=== PATIENT | male | born 1940 | race Caucasian/White ===

== ENCOUNTER 2025-04-23 15:27 | Inpatient (IN) | payer MEDICARE, SELFPAY ==
[2025-04-23] VITALS (7 sets, daily range): BP systolic 77–133; BP diastolic 46–77; PULSE 71–93; RESP 14–30; TEMP 36.4–37.1; O2SAT 96–99; BMI 24.1
--- NOTE | ~2025-04-23 | FL_ITS ---
EXAMINATION: FL GUIDANCE ONLY HISTORY: ioc COMPARISON: Correlation is made with a CT of the abdomen with contrast dated 04/23/2025. TECHNIQUE: Fluoroscopy time: 0.1 minutes. Cumulative Dose: 3.77 mGy. DAP: 1.02 mGym2 Images: 4. FINDINGS: Fluoroscopic spot films from an intraoperative cholangiogram demonstrate contrast within a normal caliber common bile duct and in the duodenum. No intraluminal filling defects are identified. FL/FL guidance in OR IMPRESSION: Fluoroscopy during procedure. Please see procedure report for additional information. Electronically signed by: Prosper Slater MD 04/25/2025 04:00 PM EDT
--- NOTE | ~2025-04-23 | XR_ITS ---
CLINICAL HISTORY: vomiting 1 view chest x-ray Comparison: None Findings: Mild diffuse interstitial prominence in both lungs. No focal consolidation, pleural effusion or pneumothorax. Left cardiac AICD device and leads are in expected location. No acute fracture. IMPRESSION: 1. Mild interstitial prominence in both lungs may represent pulmonary vascular congestion/mild pulmonary edema. This document has been electronically signed by: Karly Avila MD on 04/23/2025 18:21:34
--- NOTE | ~2025-04-23 | CT_ITS ---
CLINICAL HISTORY: RUQ tenderness, elevated LFTS, ?Sabine, also diarrh CT abdomen and pelvis with contrast Comparison: None Findings: No consolidation or effusion. Markedly distended gallbladder measuring 11.3 x 6.2 cm. No radiopaque gallstone is seen. No intra or extrahepatic ductal dilation with CBD measuring 9 mm in diameter. Right kidney upper pole 1.2 cm partially exophytic cyst. Solid organs are otherwise within normal limits. No renal stones. No bowel obstruction, pneumoperitoneum, or pneumatosis. Pelvic contents unremarkable. Normal appendix. The bones are intact. Moderate to severe spondylosis of the lumbar spine with mild levoscoliosis. IMPRESSION: Markedly distended gallbladder without radiopaque gallstones. No intra or extrahepatic ductal dilation, gallbladder wall thickening or pericholecystic fluid. Correlate with NPO status. Right upper quadrant ultrasound can be obtained for further evaluation. Right kidney upper pole 1.2 cm exophytic cyst. This document has been electronically signed by: Karly Avila MD on 04/23/2025 19:57:02
--- NOTE | ~2025-04-23 | US_ITS ---
CLINICAL HISTORY: RUQ tenderness, abn LFTs US abdomen limited Comparison: CT/SR - CT ABDOMEN PELVIS W IV CON - 04/23/25 19:08 EDT Findings: The liver is normal in size and echotexture. There is no intrahepatic bile duct dilatation. The common duct is 7 mm in diameter. Markedly distended gallbladder with large sludge within the dependent portion. Moderate gallbladder wall thickening measuring 7 mm. there is no sonographic Frey sign. IMPRESSION: 1. Markedly distended gallbladder with large amount of sludge within the dependent portion. Moderate gallbladder wall thickening. No intra or extrahepatic dilation. Negative sonographic Frey's sign. The findings are equivocal for acute cholecystitis. If there is high clinical suspicion, nuclear medicine HIDA scan can be obtained for further evaluation. This document has been electronically signed by: Karly Avila MD on 04/23/2025 20:55:42
--- NOTE | ~2025-04-23 | NM_ITS ---
EXAMINATION: NM HEPATOBILIARY WITHOUT PHARM HISTORY: ?acute cholecystitis. TECHNIQUE: An hepatobiliary scan was performed following the intravenous administration of 5.0 mCi technetium 99m-MDP. Images were obtained to 4.5 hours. COMPARISON: Correlation is made with an abdominal ultrasound dated 04/23/2025. FINDINGS: There is normal uptake of the radiopharmaceutical by the liver. However, no excretion is seen over the course of 120 minutes. 4 hour delayed images demonstrate activity in the common bile duct and small bowel. No activity is seen in the gallbladder. Findings are consistent with cystic duct obstruction and acute cholecystitis. NM/NM hepatobiliary wo pharm IMPRESSION: Findings consistent with acute cholecystitis as described. Electronically signed by: Prosper Slater MD 04/24/2025 02:39 PM EDT
--- NOTE | 2025-04-23 15:33 | ED_ITS ---
HPI - General Adult General Chief complaint: Abdominal Pain Stated complaint: N/D, abd pain Time Seen by Provider: 04/23/25 16:44 History of Present Illness ED Provider: Darrin MIDDLETON narrative: The patient is a generally healthy 84-year-old male. Three weeks ago he went on a cruise to the [facility] for 16 days. During the cruise he had diarrhea. He was then home for a week. His diarrhea resolved. A week ago he went to [place] and he again had diarrhea. He returned from [place] yesterday. Yesterday his diarrhea abated. He also had some vomiting while in [place] over the weekend on Monday and Monday (4-5 days ago). Today he had some abdominal pain and vomited and called his regular doctor's office and was advised to come to the emergency room. No fever. At the time that I examined him he denied having any significant abdominal pain. Related Data Home Medications ?Medication ?Instructions ?Recorded ?Confirmed clopidogrel 75 mg tablet 75 mg PO DAILY 04/23/25 04/23/25 dapagliflozin propanediol 10 mg 10 mg PO DAILY 04/23/25 04/23/25 tablet (Farxiga) glipizide 10 mg tablet 10 mg PO BID 04/23/25 04/23/25 loperamide 2 mg capsule 2 mg PO Q4H PRN Loose Stool 04/23/25 04/23/25 metoprolol tartrate 50 mg tablet 50 mg PO DAILY 04/23/25 04/23/25 rosuvastatin 40 mg tablet 40 mg PO BEDTIME 04/23/25 04/23/25 semaglutide 14 mg tablet (Rybelsus) 14 mg PO DAILY 04/23/25 04/23/25 spironolactone 25 mg tablet 25 mg PO DAILY 04/23/25 04/23/25 Allergies Allergy/AdvReac Type Severity Reaction Status Date / Time No Known Allergies Allergy Verified 04/23/25 15:35 Review of Systems 2 Review of Systems: Yes all other systems are reviewed and are negative [facility] Social History Social History Smoked in Last 30 Days: No Use of substances other than those prescribed or required for medical reasons: No Advance Directives: No Advance Directives Information Provided: No Physical Exam ED Vital Signs: Vital Signs - 24 hr 04/23/25 15:33 04/23/25 16:05 04/23/25 18:10 Temperature 98.2 F 97.6 F 98.1 F Pulse Rate 93 87 73 Respiratory Rate 18 30 H 20 Blood Pressure 77/46 L 99/46 L 114/59 L Pulse Oximetry 98 96 99 Oxygen Delivery Method Room Air Room Air Room Air 04/23/25 19:40 04/23/25 19:41 04/23/25 20:47 Temperature 97.8 F Pulse Rate 74 73 Respiratory Rate 14 21 H Blood Pressure 125/57 L 129/67 122/77 Pulse Oximetry 98 98 Oxygen Delivery Method Room Air Room Air BMI result Body Mass Index 24.1 Const Other: The patient is awake and alert with a normal mental status. He is pleasant and cooperative. He is not appear in acute distress although he looks somewhat weak. Orientation/consciousness: patient oriented x3 HENMT Other: Face is symmetrical, mucous membranes moist Eyes General: appearance normal, both eyes and all related structures Neck Neck: Yes full ROM Resp Effort & Inspection: normal respiratory effort Auscultation: clear to auscultation bilaterally Cardio Rate: regular rate Rhythm: regular rhythm Heart sounds: S1 normal heart sound present and S2 normal heart sound present GI Other: The patient seems to have some right upper quadrant tenderness. No rebound or guarding. Abdomen is otherwise soft and nontender. Skin General skin exam: no rashes or lesions noted Neuro General: patient oriented x3, tone normal, moves all extremities, no focal motor deficits and CN's II-XI intact bilaterally Extrem Other: No peripheral edema Course Course Course Narrative: 04/23/25 1533 OWEN Howe This is a Rapid Medical Examination (RME) performed by Vandana Rangel PA-C in triage. Full HPI, ROS, assessment and treatment plan per primary provider in the Main ED. Hx: 84 yo M here for eval of N/V/D that began 3 wks ago while on a cruise. feels like a wet rag . reports abd pain this morning that has resolved. 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 called PCP, advised to come to ED for fluids. no recent abx. reports friend whom he went on a cruise with was also ill with diarrhea. Vitals: hypotensive, well appaering. Plan: labs, GI panel Medications Administered Generic Name Dose Route Start Last Admin Trade Name Freq PRN Reason Stop Dose Admin Dextrose/Sodium Chloride 1,000 mls @ 100 mls/hr 04/23/25 21:45 04/23/25 22:39 D5ns IVCONT 100 mls/hr .Q10H KIRSTEN Administration Piperacillin Sod/Tazobactam 50 mls @ 100 mls/hr 04/23/25 22:00 04/23/25 22:53 Sod 3.375 gm/ Sodium Chloride IV Infused Q6H KIRSTEN Infusion Sodium Chloride 3 ml 04/24/25 00:00 04/24/25 00:37 0.9 % Sodium Chloride Flush 3 Ml Syringe IVFLUSH Not Given QSHIFT KIRSTEN Discontinued Medications Generic Name Dose Route Start Last Admin Trade Name Freq PRN Reason Stop Dose Admin Ceftriaxone Sodium 2 gm 04/23/25 16:56 04/23/25 17:10 Ceftriaxone Sodium 2 Gm Vial IVPUSH 04/23/25 16:57 2 gm ONCE ONE Administration Sodium Chloride 1,000 mls @ 999 mls/hr 04/23/25 16:00 04/23/25 17:44 Ns IV 04/23/25 17:00 Infused .Q1H1M KIRSTEN Infusion Metronidazole 500 mg in 100 mls @ 100 mls/hr 04/23/25 16:55 04/23/25 19:03 Flagyl IV 04/23/25 17:54 Infused ONCE ONE Infusion Sodium Chloride 1,000 mls @ 999 mls/hr 04/23/25 17:00 04/23/25 19:03 Ns IV 04/23/25 18:00 Infused .Q1H1M KIRSTEN Infusion Magnesium Sulfate 2 gm in 50 mls @ 150 mls/hr 04/23/25 16:57 04/23/25 17:44 Magnesium Sulfate/H2o IV 04/23/25 17:16 Infused ONCE ONE Infusion Sodium Chloride 500 mls @ 500 mls/hr 04/23/25 17:00 04/23/25 19:03 Ns IV 04/23/25 17:59 Infused .Q1H KIRSTEN Infusion Potassium Chloride 10 meq in 100 mls @ 100 mls/hr 04/23/25 18:30 04/24/25 00:36 Potassium Chloride/H20 IV 04/23/25 22:29 Infused Q1H KIRSTEN Infusion Iohexol 100 ml 04/23/25 19:15 04/23/25 19:15 Iohexol 350 Mg/Ml 100 Ml Infus..Btl IV 04/23/25 19:16 85 ml ONCE ONE Administration Medical Decision Making Medical Decision Making [facility] Narrative: The patient is a very pleasant 84-year-old male who describes a history of having had an episode of significant diarrhea when he was on a cruise 3 weeks ago. He also had significant diarrhea during the last week when he went to [place]. He then had an episode of vomiting today that may have been associated with some mild degree of abdominal pain and he came to the emergency room. On exam he had some mild right upper quadrant tenderness. His initial blood pressure was low but he was not persistently hypotensive. The patient was given empiric IV fluids and empiric antibiotics to cover a possible intra-abdominal source. He was given ceftriaxone and metronidazole. An initial lactate was elevated at 2.2. His white count was 14 in his LFTs showed an elevated bilirubin and transaminases. A CT scan of the abdomen and pelvis was done that showed gallbladder distention. An ultrasound was advised. An ultrasound was done that showed a distended gallbladder with sludge with moderate gallbladder wall thickening. A negative sonographic Frey's sign was reported. This was therefore considered equivocal for acute cholecystitis. I re-examined the patient after the ultrasound and he seems to have right upper quadrant tenderness. A repeat lactate was normal. He looked and seemed to be feeling better. A focused sepsis exam was done at 19:00. The case was discussed with the surgery team and the patient will be admitted for further evaluation with a tentative diagnosis of possible acute cholecystitis. Lab Data 04/23/25 16:04 04/23/25 16:04 Labs: Lab Results 04/23/25 04/23/25 04/23/25 Range/Units 16:04 18:27 19:19 WBC 14.0 H (4.8-10.8) X10*3/uL RBC 5.13 (4.60-5.80) X10*6/uL Hgb 15.1 (14.0-18.0) g/dl Hct 42.2 (42.0-52.0) % MCV 82.3 (80.0-98.0) fL MCH 29.4 (27.0-33.0) pg MCHC 35.8 (31.0-36.0) g/dl RDW 13.3 (11.0-16.0) % Plt Count 116 L (160-400) X10*3/uL MPV 10.0 (9.4-12.4) fL Immature Gran % (Auto) 0.4 (0.0-0.4) % Neut % (Auto) 88.7 H (45-73) % Lymph % (Auto) 3.0 L (20-40) % [place] % (Auto) 7.7 (2-11) % Eos % (Auto) 0.1 (0-4) % Baso % (Auto) 0.1 (0-2) % Lymph # (Auto) 0.4 L (1.2-4.9) X10*3/uL [place] # (Auto) 1.1 (0.1-1.2) X10*3/uL Eos # (Auto) 0.0 (0.0-0.4) X10*3/uL Baso # (Auto) 0.0 (0.0-0.2) X10*3/uL Abs Immat Gran (auto) 0.05 H (0.00-0.03) X10*3/uL Absolute Neuts (auto) 12.4 H (2.0-8.3) x10*3/uL Absolute Nucleated RBC 0.000 (0.0-0.012) X10*3/uL Nucleated RBC % (auto) 0.0 (0.0-0.2) /100WBC Sodium 138 (135-145) mmol/L Potassium 2.6 L* (3.3-5.1) mmol/L Chloride 103 (96-108) mmol/L Carbon Dioxide 25 (22-29) mmol/L Anion Gap 13 (12-20) BUN 16 (9-16) mg/dL Creatinine 1.18 (0.5-1.4) mg/dL Estim Creat Clear Calc 48.2 Estimated GFR 59 Random Glucose 184 H (60-115) mg/dL Lactic Acid 2.2 H* (0.5-2.0) mmol/L Lactic Acid F/U @ 2Hr 1.5 (0.5-2.0) mmol/L Calcium 9.0 (8.4-10.2) mg/dL Magnesium 1.4 L* (1.6-2.6) mg/dL Total Bilirubin 3.3 H (0.0-1.0) mg/dL Direct Bilirubin 2.3 H (0.0-0.5) mg/dL AST 135 H (5-37) U/L ALT 70 H (0-40) U/L Alkaline Phosphatase 125 H (39-117) U/L C-Reactive Protein 0.61 H (< or = 0.50) mg/dL Total Protein 6.4 L (6.5-8.0) g/dL Albumin 4.0 (3.5-5.0) g/dL Lipase 27 (8-78) U/L Urine Color Dark Yellow Urine Appearance Clear Urine pH 5.5 (5.0-9.0) Ur Specific [place] 1.020 (1.005-1.025) Urine Protein 30 (1+) H (Neg-Trace) mg/dL Urine Glucose (UA) >=1000 H (Negative) mg/dL Urine Ketones Trace (Negative) mg/dL Urine Blood Trace H (Negative) Urine Nitrite Negative (Negative) Ur Leukocyte Esterase Small (1+) H (Negative) Urine RBC 0-2 (0-2) /HPF Urine WBC 21-50 H (0-5) /HPF Ur Squamous Epith Cells 6-10 (0-2) /HPF Urine Bacteria 1+ (None Seen) Hyaline Casts 3-5 (0-2) /LPF Critical Care Time Critical Care Time Critical Care Time: Yes Total Critical Care Time: 35 Attestation: The patient was critically ill with a high probability of imminent or life- threatening deterioration. ?I spent greater than 30 minutes of discontinuous time evaluating the patient, delivering critical care at the bedside, discussing evaluating data with consultants. ?Critical care time does not include time spent performing separately billable procedures or teaching. ?Time spent performing critical care with 35 minutes. Discharge Plan Discharge Clinical Impression: Vomiting, Hypokalemia, Abnormal LFTs Patient Disposition: Admitted As Inpatient
--- OUTSIDE RECORDS SUMMARY | 2025-04-23 16:01 | XMS_ITS | Clinical Summary ---
Author Organization [facility] [address] [place] [address] Address [address] [place] [address] Phone Care Team Providers Care Project Engineering Director Name Role Phone Romie Vieyra MD Primary Care Provider [phone] Allergies Active Allergy Reactions Criticality Noted Date Comments Lisinopril Cough 10/24/2022 Other reaction(s): cough Medications aspirin 81 mg EC tablet 1 TABLET DAILY Activ e cholecalcifero l (VITAMIN D-3) 25 mcg (1,000 unit) tablet Take 1,000 Units by mouth daily. 05/29/20 23 Active UNABLE TO FIND cpap Activ e FREESTYLE LANCETS MISC Use with glucometer to check glucose once daily 11/18/20 21 Active glipiZIDE (GLUCOTROL) 10 mg tablet Take 1 Tablet by mouth 2 times daily (before meals). 07/02/20 24 Active blood sugar diagnostic (FreeStyle Lite Strips) test strip 1 Strip by In Vitro route daily. 03/29/20 23 Active blood-glucose meter kit Use to check glcuose levels 11/18/20 21 Active lisinopriL (PRINIVIL,ZEST RIL) 2.5 mg tablet Take 1 Tablet by mouth daily for 180 days. 10/26/20 23 Active semaglutide (Rybelsus) 14 mg tablet Take 1 tablet (14 mg total) by mouth 1 (one) time each day. 04/23/20 24 Active rosuvastatin (CRESTOR) 40 mg tablet Take 1 tablet (40 mg total) by mouth 1 (one) time each day. 90 tablet 1 11/12/20 24 Active metoprolol tartrate (LOPRESSOR) 50 mg tablet Take 1 tablet (50 mg total) by mouth 2 (two) times a day. 180 tablet 1 11/12/20 24 Active spironolactone (ALDACTONE) 25 mg tablet TAKE 1 TABLET BY MOUTH DAILY 90 tablet 1 02/05/20 25 Active clopidogreL (PLAVIX) 75 mg tablet TAKE 1 TABLET BY MOUTH DAILY 90 tablet 1 02/11/20 25 Active Farxiga 10 mg tablet TAKE 1 TABLET BY MOUTH DAILY 90 tablet 1 04/08/20 25 Active Farxiga 10 mg tablet TAKE 1 TABLET BY MOUTH DAILY 90 tablet 1 10/31/20 24 025 Discontinued Active Problems Problem Noted Date Diagnosed Date Spondylosis of lumbar region without myelopathy or radiculopathy 07/02/2024 Chronic systolic congestive heart failure ([facility] V24, [facility] V28) 05/08/2023 Coronary artery disease invo lving coronary bypass graft of [place] heart without angina pectoris 12/29/2022 Type 2 diabetes mellitus wit h microalbuminuria, without long-term current use of insulin ([facility] V24, [facility] V28) 09/01/2022 Central sleep apnea 10/28/2021 Obstructive sleep apnea of adult 06/15/2016 Overview (09/28/2024): [facility] Home sleep study; 2021; weight 180 pounds; BMI 27. AHI 27; AI 26; AHI 1. 77 obstructive apneas; 75 central apneas; 14 mixed apneas; 8 hypopneas. Average oxygen saturation 91%; oxygen neelima 81% Obstructive/Central Sleep Apnea with [place] Sue Respiration - moderate AHI 27 without nocturnal hypoxemia. Ordered by Dr Limon. Type II or unspecified type diabetes mellitus with ophthalmic manifestations, uncontrolled(250.52) ([facility] V24, [facility] V28) 08/13/2014 Overview (09/28/2024): Nuclear Sclerosis not e eye exam 12/06/2011 Lumbar spinal stenosis 09/16/2011 Type II diabetes mellitus wi th peripheral circulatory disorder ([facility] V24, [facility] V28) 12/30/2010 AICD (automatic cardioverter/defibrillator) pres ent 12/28/2010 Overview (09/28/2024): Implanted at [facility], 10/13/2010, ischemic cardiomyopathy Cardiomyopathy ([facility] V24, [facility] V28) 2009 Nonspecific abnormal finding in stool contents 0 08/07/2006 Overview (09/28/2024): negative colonoscopy 08.07.06. No colon cancer screening necessary until 2016. DM (diabetes mellitus) type II controlled with renal manifestation ([facility] V24, [facility] V28) 03/23/2006 Mixed hyperlipidemia 12/23/2005 Prostate cancer ([facility] V24, [facility] V28) 12/23 Essential hypertension, benign 12/21/2005 Old myocardial infarction 12/21/2005 Overview (09/28/2024): Stemi, 04/28/2010, medical treatment advised. CAD, five the vessel CABG, 08/22 [414.00] Pilonidal cyst 12/21/2005 Overview (09/28/2024): IMO update Encounters Date Type Department Care Team Description 04/23/2025 Telephone Adult Medicine [address] [phone] Romie Vieyra MD Abdominal Pain; Vomiting; Diarrhea 02/10/2025 10:20 AM EDT Office Visit Endocrinology [address] [phone] Padmaja Cr PA Type 2 diabetes mellitus with microalbuminuria, without long-term current use of insulin ([facility] V24, [facility] V28) (Primary Dx); Essential hypertension, benign; Mixed hyperlipidemia from Last 3 Months Immunizations Name Administration Dates Next Due Moderna SARS-CoV-2 COVID-19, mRNA, LNP-S, preservative free 10/14/2022 Td, Unspecified 01/08/2002 Surgical History Surgery Date Site/Laterality Comments CORONARY ARTERY BYPASS GRAFT 2002 PROCEDURE: HISTORICAL CABG OTHER SURGICAL HISTORY 2009 PROCEDURE: ---- OTHER ----; COMMENT: AICD COLONOSCOPY 08/07/2006 PROCEDURE: HISTORICAL COLONOSCOPY; COMMENT: Normal LUMBAR LAMINECTOMY 01/07/2020 Bilateral PROCEDURE: HISTORICAL LUMB LAMINECTOMY; COMMENT: l3/l4 decompressive laminectomies w/ foraminotomies Medical History Medical History Date Comments Unspecified sleep apnea 12/21/2005 DX:Unspe cified sleep apnea Coronary atherosclerosis of unspecified type of vessel, [place] or graft 12/21/2005 DX:Coronary atherosclerosis of unspecified type of vessel, [place] or graft Essential hypertension, benign 12/21/2005 D X:Essential hypertension, benign Pilonidal cyst without menti on of abscess 12/21/2005 DX:Pilonidal cyst without me ntion of abscess Type II or unspecified type diabetes mellitus without mention of complication, not stated as uncontrolled 03/23/2006 DX:Type II or unspecified ty pe diabetes mellitus without mention of complication, not stated as uncontrolled Nonspecific abnormal finding in stool contents 08/07/2006 DX:Nonspecific abnormal find ing in stool contents; COMMENT: negative colonoscopy 08.07.06. No colon cancer screening necessary until 2016. Diabetes mellitus type II, uncontrolled 03/23/2006 DX:Diabetes mellitus type II , uncontrolled Family History Medical History Relation Name Comments Heart attack Father in car acc ident Stroke Mother Blindness Neg Hx Cataracts Neg Hx Glaucoma Neg Hx Macular degeneration Neg Hx Strabismus Neg Hx Relation Name Status Comments Father Mother Social History Tobacco Use Types Packs/Day Years Used Date Smoking Tobacco: Former Cigarettes Q uit: 11/20/1979 Smokeless Tobacco: Never Tobacco Cessation:Counseling Given: Not Answered Alcohol Use Standard Drinks/Week Comments Not Asked 0 (1 standard drink = 0.6 oz pur e alcohol) Sex and Gender Information Value Date Recorded Sex Assigned at Not on file Legal Sex Male 6:08 PM EST Gender Identity Not on file Sexual Orientation Not on file Obstetrics History Last Filed Vital Signs Vital Sign Reading Time Taken Comments Blood Pressure 137/68 02/10/2025 10:20 AM EDT Pulse 64 02/10/2025 10:20 AM EDT Temperature 36.2 ??C (97.2 ??F) 02/10/2025 10:20 AM E DT Respiratory Rate 16 11/12/2024 12:40 PM EST Oxygen Saturation 99% 02/10/2025 10:20 AM EDT Inhaled Oxygen Concentration - - Weight 76.7 kg (169 lb 3.2 oz) 02/10/2025 10:20 AM EDT Height 175.3 cm (5' 9 ) 02/10/2025 10:20 AM EDT Body Mass Index 24.99 02/10/2025 10:20 AM EDT Plan of Treatment Health Maintenance Due Date Last Done Comments Diabetes: Annual Foot Exam 1952 Diabetes: Annual Retina Eye Exam 1950 Zoster Vaccines (1 of 2) 1961 DTaP,Tdap,and Td Vaccines (2 - Td or Tdap) 01/08/2012 01/08/2002 RSV Immunization Adult Patients (1 - 1-dose 75+ series) 2017 Pneumococcal Vaccine: 50+ Years (2 of 2 - PPSV23) 10/27/2021 09/01/2021 Colorectal Cancer Screening: Stool Based Tests (FOBT/FIT) 10/29/2022 Social Influencers of Health Screening 10/29/2022 COVID-19 Vaccine ( season) 2024 10/14/2022, 08/16/2021, 01/21/2021, Additional history exists Depression Screening 02/25/2025 02/26/2024 Falls Risk Assessment 02/25/2025 02/26/2024 Medicare Annual Wellness Visit 02/25/2025 02/26/2024 Diabetes: Blood Sugar Control Test (HGBA1C) 06/16/2025 12/17/2024, 11/12/2024, 06/13/2024, Additional history exists Influenza Vaccine (Season Ended) 2025 09/05/2022, 09/01/2021 Diabetes: Annual Urine Albumin-Creatinine Ratio (uACR) 11/12/2025 11/12/2024, 03/21/2024 Diabetes: Annual GFR (Glomerular Filtration Rate) 12/17/2025 12/17/2024, 11/12/2024, 09/04/2024, Additional history exists Hypertension/CHF/CAD Annual BMP Blood Test 12/17/2025 12/17/2024, 11/12/2024, 09/04/2024, Additional history exists Cholesterol Screening (Lipid Panel) 09/04/2029 09/04/2024, 12/19/2023 HIB Vaccines Aged Out No longer eligi ble based on patient's age to complete this topic HPV Vaccines Aged Out No longer eligi ble based on patient's age to complete this topic Hepatitis A Vaccines Aged Out No long er eligible based on patient's age to complete this topic Hepatitis B Vaccines Aged Out No long er eligible based on patient's age to complete this topic IPV Vaccines Aged Out No longer eligi ble based on patient's age to complete this topic MMR Vaccines Aged Out No longer eligi ble based on patient's age to complete this topic Meningococcal ACWY Vaccine Aged Out N o longer eligible based on patient's age to complete this topic Meningococcal B Vaccine Aged Out No l onger eligible based on patient's age to complete this topic RSV Immunization Patients Under 20 months Aged Out No longer eligible based on patient's age to complete this topic Varicella Vaccines Aged Out No longer eligible based on patient's age to complete this topic Procedures Procedure Name Priority Date/Time Associated Diagnosis Comments BASIC METABOLIC PANEL Routine 12/17/2024 7:50 AM EST Type 2 diabetes mellitus with microalbuminuria, without long-term current use of insulin ([facility] V24, [facility] V28) Essential hypertension, benign Coronary artery disease involving coronary bypass graft of [place] heart without angina pectoris AICD (automatic cardioverter/defibril lator) present Chronic systolic congestive heart failure ([facility] V24, [facility] V28) Mixed hyperlipidemia Prostate cancer ([facility] V24, [facility] V28) ROYAL on CPAP HEMOGLOBIN A1C Routine 12/17/2024 7:50 AM EST Type 2 diabetes mellitus with microalbuminuria, without long-term current use of insulin ([facility] V24, [facility] V28) Essential hypertension, benign Coronary artery disease involving coronary bypass graft of [place] heart without angina pectoris AICD (automatic cardioverter/defibril lator) present Chronic systolic congestive heart failure ([facility] V24, [facility] V28[facility] Mixed hyperlipidemia Prostate cancer ([facility] V24, [facility] V28) ROYAL on CPAP MICROALBUMIN CREATININE URINE RATIO Routine 11/12/2024 8:34 AM EST Obstructive sleep apnea of adult AICD (automatic cardioverter/defibril lator) present Cardiomyopathy ([facility] V24, [facility] V28) Coronary artery disease involving coronary bypass graft of [place] heart without angina pectoris Chronic systolic congestive heart failure ([facility] V24, [facility] V28) Essential hypertension, benign Type II diabetes mellitus with peripheral circulatory disorder ([facility] V24, [facility] V28) Prostate cancer ([facility] V24, [facility] V28) Old myocardial infarction Pilonidal cyst DM (diabetes mellitus) type II controlled with renal manifestation ([facility] V24, [facility] V28) Mixed hyperlipidemia Central sleep apnea DEPRESSION SCREENING Routine 02/26/2024 FALLS RISK ASSESSMENT Routine 02/26/2024 LIPID PANEL Routine 12/19/2023 from Last 3 Months or Most Recently Relevant to Health Maintenance Results * (ABNORMAL) Hemoglobin A1c (12/17/2024 7:50 AM EST) [facility] Hemoglobin A1C 8.3(H) <6.5 % LAB CHEMISTRY METHOD 12/17/2024 1:[address] [facility] Mean Bld Glu Estim. 192 mg/dL LAB CHEMISTRY METHOD 12/17/2024 1:[address] [facility] Blood Venous blood specimen / Unknown Venipuncture / Unknown 12/17/2024 7:50 AM EST 12/17/2024 7:50 AM EST us Romie Vieyra MD LAB BLOOD ORDERABLES Final Result [facility] [address] [place] [address], [place] [phone] * (ABNORMAL) Basic metabolic panel (12/17/2024 7:50 AM EST) [facility] Sodium 134 133 - 145 mmol/L LAB CHEMISTRY METHOD 12/17/2024 10:[address] [facility] Potassium 4.3 3.5 - 5.5 mmol/L LAB CHEMISTRY METHOD 12/17/2024 10:10 AM [facility] Chloride 101 96 - 110 mmol/L LAB CHEMISTRY METHOD 12/17/2024 10:10 AM [facility] CO2 28 21 - 32 mmol/L LAB CHEMISTRY METHOD 12/17/2024 10:10 AM [facility] Anion Gap 5 3 - 11 LAB CHEMISTRY METHOD 12/17/2024 10:10 AM [facility] Glucose 209(H) 70 - 100 mg/dL LAB CHEMISTRY METHOD 12/17/2024 10:10 AM [facility] BUN 15 5 - 25 mg/dL LAB CHEMISTRY METHOD 12/17/2024 10:10 AM [facility] Creatinine 0.91 0.70 - 1.30 mg/dL LAB CHEMISTRY METHOD 12/17/2024 10:10 AM [facility] eGFR 84 >=60 mL/min/1. 73m2 LAB CHEMISTRY METHOD 12/17/2024 10:10 AM [facility] Comment:Calculation based on the??Chronic Kidney Disease Epidemiology Collaboration (CKD-EPI) equation refit??without adjustment for race. BUN/Creatinine Ratio 16.5 LAB CHEMISTRY METHOD 12/17/2024 10:10 AM [facility] Calcium 9.5 8.5 - 10.5 mg/dL LAB CHEMISTRY METHOD 12/17/2024 10:10 AM [facility] Blood Venous blood specimen / Unknown Venipuncture / Unknown 12/17/2024 7:50 AM EST 12/17/2024 7:50 AM EST us Romie Vieyra MD LAB BLOOD ORDERABLES Final Result [facility] [address] [place] [address], * (ABNORMAL) Microalbumin creatinine urine ratio (11/12/2024 8:34 AM EST) [facility] Creatinine, Urine 91.0 mg/dL LAB CHEMISTRY METHOD 11/12/2024 10:[address] [facility] Microalb, Ur 31.4(H) 0.0 - 29.0 mg/L LAB CHEMISTRY METHOD 11/12/2024 10:[address] [facility] Microalb/Crea t Ratio 35(H) <30 mg/g creat LAB CHEMISTRY METHOD 11/12/2024 10:[address] [facility] Urine Urine specimen obtained by clean catch procedure / Unknown Non-blood Collection / Unknown 11/12/2024 8:34 AM EST 11/12/2024 8:34 AM EST Romie Vieyra MD LAB URINE ORDERABLES Final Result [facility] [address] [place] [address], * Falls Risk Assessment (02/26/2024) [facility] Falls Risk Assessment 12/19/2023 Historical Provider HEALTH MAINTENANCE Final Result * Depression Screening (02/26/2024) [facility] Depression Screening 12/19/2023 Historical Provider HEALTH MAINTENANCE Final Result * (ABNORMAL) Lipid panel (12/19/2023) [facility] LDL/HDL Ratio 4 0 - 4 Triglycerides 145 0 - 150 mg/dL Cholesterol 232(A) 0 - 200 mg/dL HDL 63 >=40 mg/dL LDL Cholesterol 140(A) 0 - 100 mg/dL Blood Venous blood specimen / Unknown Historical Provider LAB BLOOD ORDERABLES April l Result from Last 3 Months or Most Recently Relevant to Health Maintenance Insurance MEDICARE [facility] Care Teams Project Engineering Director Relationship Specialty Start Date End Date Romie Vieyra MD [address] [place] [id number] PCP - General 09/22/22
[2025-04-23 16:12] LABS: MANUAL DIFF FLAG NO
[2025-04-23 16:15] LABS: Basophils Percent Auto 0.1 % (0-2); Eosinophils Percent Auto 0.1 % (0-4); Hematocrit 42.2 % (42.0-52.0); Hemoglobin 15.1 g/dl (14.0-18.0); Imm Gran Abs Auto 0.05 X10*3/uL (0.00-0.03); Imm Gran Pct Auto 0.4 % (0.0-0.4); Lymphocytes Absolute Auto 0.4 X10*3/uL (1.2-4.9); Mean Corpuscular HGB Conc 35.8 g/dl (31.0-36.0); Mean Corpuscular Hemoglobin 29.4 pg (27.0-33.0); Mean Corpuscular Volume 82.3 fL (80.0-98.0); Monocytes Absolute Auto 1.1 X10*3/uL (0.1-1.2); Monocytes Percent Auto 7.7 % (2-11); Neutrophils Absolute Auto 12.4 x10*3/uL (2.0-8.3); Neutrophils Percent Auto 88.7 % (45-73); Platelet Count 116 X10*3/uL (160-400); Red Blood Count 5.13 X10*6/uL (4.60-5.80); Red Cell Distribution Width 13.3 % (11.0-16.0)
[2025-04-23] MEDS: 0.9 % Sodium Chloride 1,000 ML 999 ML IV ×2 (16:15→17:10)
[2025-04-23 16:46] LABS: Lactic Acid 2.2 mmol/L (0.5-2.0)
[2025-04-23 16:47] LABS: Alanine Aminotransferase 70 U/L (0-40); Alkaline Phosphatase 125 U/L (39-117); Anion Gap 13 (12-20); Aspartate Amino Transferase 135 U/L (5-37); Bilirubin Total 3.3 mg/dL (0.0-1.0); Blood Urea Nitrogen 16 mg/dL (9-16); Carbon Dioxide 25 mmol/L (22-29); Chloride 103 mmol/L (96-108); Creatinine Clr Calc Pharmacy 48.2; Estimated Glomerular Filt Rate 59; Glucose Random 184 mg/dL (60-115); Lipase 27 U/L (8-78); Magnesium 1.4 mg/dL (1.6-2.6); Potassium 2.6 mmol/L (3.3-5.1); Sodium 138 mmol/L (135-145); Total Protein 6.4 g/dL (6.5-8.0)
[2025-04-23] MEDS: cefTRIAXone sodium 2 GM VIAL IVPUSH (17:10)
[2025-04-23 17:12] LABS: Bilirubin Direct 2.3 mg/dL (0.0-0.5); C Reactive Protein 0.61 mg/dL (< or = 0.50)
[2025-04-23] MEDS: metroNIDAZOLE/NS 500 MG/100 ML PIGGYBACK 100 MG IV (17:18)
[2025-04-23] MEDS: Magnesium Sulfate/H2O 2 GM/50 ML PIGGYBACK IV (17:18)
[2025-04-23] MEDS: 0.9 % Sodium Chloride 500 ML IV (17:19)
--- NOTE | 2025-04-23 17:43 | ECG_ITS ---
Test Reason : HYPOKALEMIA Blood Pressure : */* mmHG Vent. Rate : 77 BPM Atrial Rate : * BPM P-R Int : * ms QRS Dur : 124 ms QT Int : 410 ms P-R-T Axes : * 244 96 degrees QTcB Int : 463 ms Normal sinus rhythm Minimal voltage criteria for LVH, may be normal variant ( [place] product ) Inferior infarct , age undetermined Anterior infarct , age undetermined Abnormal ECG No previous ECGs available Referred By: Osbaldo Clifford Electronically Signed By: MARIA A FITZGERALD
[2025-04-23 18:11] LABS: Reflex Lactate? Lactic Acid Added
[2025-04-23 18:51] LABS: ~Lactic Acid-LAB USE ONLY 1.5 mmol/L (0.5-2.0)
[2025-04-23] MEDS: Potassium Chloride/H20 10 MEQ/100 ML PIGGYBACK 100 MEQ IV ×4 (19:06→23:31)
[2025-04-23] MEDS: iohexoL 350 MG/ML 100 ML INFUS..BTL IV (19:15)
[2025-04-23 19:25] LABS: Appearance Urine Clear; Color Urine Dark Yellow; Glucose Urine UA >=1000 mg/dL (Negative); Leukocyte Esterase Urine Small (1+) (Negative); Nitrite Urine Negative (Negative); PH 5.5 (5.0-9.0); UMIC TRIGGER UACC YES; Urine Blood Trace (Negative); Urine Ketones Trace mg/dL (Negative); Urine Protein 30 (1+) mg/dL (Neg-Trace)
[2025-04-23 19:48] LABS: Bacteria Urine 1+ (None Seen); RBC Urine 0-2 /HPF (0-2); UACC Culture Trigger YES; WBC Urine 21-50 /HPF (0-5)
--- NOTE | 2025-04-23 21:50 | ECG_ITS ---
Test Reason : HYPOKALEMIA Blood Pressure : */* mmHG Vent. Rate : 72 BPM Atrial Rate : 72 BPM P-R Int : 248 ms QRS Dur : 96 ms QT Int : 400 ms P-R-T Axes : 48 170 102 degrees QTcB Int : 438 ms Sinus rhythm with 1st degree A-V block with occasional Premature ventricular complexes Right axis deviation Low voltage QRS Inferior infarct , age undetermined Cannot rule out Anterior infarct , age undetermined Abnormal ECG When compared with ECG of 23-Apr-2025 17:54, No significant changes seen Referred By: Osbaldo Clifford Electronically Signed By: MARIA A FITZGERALD
--- NOTE | 2025-04-23 22:14 | PHA.MEDREC ---
Addendum entered by Sondra Cordova RPh 04/23/25 22:20: reviewed by [facility] Original Note: Pharmacy Consult ? Medication Reconciliation Pharmacy has completed the medication reconciliation. Spoke with pt and he confirmed his medications with a list from his Dr office Pt chart. Pt confirmed he has been taking his Metoprolol Tartrate 50mg tab once daily and never took it twice daily due to never realizing it should be BID.
[2025-04-23] MEDS: Piperacillin Sodium/Tazobactam 3.375 GM in 0.9 % Sodium Chloride 50 ML IV (22:23)
[2025-04-23] MEDS: Dextrose 5 % and 0.9 % NaCl 1,000 ML 100 ML IVCONT (22:39)
[2025-04-24] VITALS (7 sets, daily range): BP systolic 112–142; BP diastolic 48–80; PULSE 59–74; RESP 16–20; TEMP 36–37; O2SAT 95–98
[2025-04-24] MEDS: Piperacillin Sodium/Tazobactam 3.375 GM in 0.9 % Sodium Chloride 50 ML IV ×4 (04:40→22:02)
[2025-04-24 05:34] LABS: MANUAL DIFF FLAG NO
--- NOTE | 2025-04-24 05:40 | PM.HPGS ---
History of Present Illness History of Present Illness Date of Service: 04/24/25 <Palak Uribe PA-C - Last Filed: 04/24/25 08:41> 04/24/25 <Blayne Faustin MD - Last Filed: 04/24/25 11:11> Chief complaint: Acute Cholecystitis <Palak Uribe PA-C - Last Filed: 04/24/25 08:41> Narrative: Leobardo Carreon is a 84 year old male with distant hx of 5 vessel CABG, [place] 1 year following, s/p prophylactic AICD (15 years ago), HTN, diabetes mellitus who was sent to the ED by his PCP for evaluation of RUQ pain and vomiting and diarrhea. He reports he was on cruise to the [facility] 3 weeks prior and developed diarrhea which resolved while he was at home. He then traveled to [place] over the past weekend where he developed diarrhea again associated with some vomiting which again improved. However yesterday, he developed RUQ abd pain and vomiting with poor oral intake and general malaise over the past few days and called his PCP who sent him to the ED. Work up in the ED included CBC, BMP, LFTs which was significant for 14 and platelets 116, multiple electrolyte abnormalities, and elevated LFTs with t bili/direct bili of 3.3/2.3 125 and 70. He had a lactic acidosis which improved with IV hydration. CT scan abd pelvis and ABD US was obtained which showed markedly distended gallbladder with large amount of sludge and moderate gallbladder wall thickening. CBD measuring 9mm. Surgical admission was requested. He reports his pain has resolved this morning. He denies prior episodes of similar pain. 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 He denies fevers, chills, melena, hematochezia, dysuria, hematuria. <Palak Uribe PA-C - Last Filed: 04/24/25 08:41> Review of Systems Constitutional: Constitutional: Reports as per HPI <ELSA Miller Last Filed: 04/24/25 08:41> ENT: Denies dizziness <ELSA Miller Last Filed: 04/24/25 08:41> Cardiovascular: Cardiovascular: Denies chest pain and Denies dyspnea <Palak Uribe PA-C - Last Filed: 04/24/25 08:41> Respiratory: Respiratory: Denies cough and Denies dyspnea <Palak Uribe PA-C - Last Filed: 04/24/25 08:41> Gastrointestinal: Gastrointestinal: Reports as per HPI <ELSA Miller Last Filed: 04/24/25 08:41> Integumentary/Breasts: Skin/Breast: Denies rash <ELSA Miller Last Filed: 04/24/25 08:41> Neurologic: Denies dizziness <ELSA Miller Last Filed: 04/24/25 08:41> [facility] Surgical History Surgical History: Surgical History (Updated 04/24/25 @ 08:28 by Palak Uribe PA-C) AICD present, double chamber Hx of CABG <ELSA Miller Last Filed: 04/24/25 08:41> Social History Social History: Social History Household Members: None Household Members Other:: self, daughter next door Housing: Homeless Do you presently have visiting nurse or other home services: No Patient Tobacco Use Status: Former Tobacco user Smoked in Last 30 Days: No Use of substances other than those prescribed or required for medical reasons: No Have you been hit, kicked, punched, or otherwise hurt by someone within the past year? If so, by whom?: No Do you feel safe in your current relationship?: No Current Relationship Is there a partner from a previous relationship who is making you feel unsafe now?: No Are you made to feel afraid or neglected: No Advance Directives: No Advance Directives Information Provided: No Do you have a plan to hurt others: No Plan Recently lost weight without trying: No Eating poorly because of decreased appetite: Yes Nutrition Risks: Dental problems <ELSA Miller Last Filed: 04/24/25 08:41> Meds Allergies/Adverse reactions: Allergies Allergy/AdvReac Type Severity Reaction Status Date / Time No Known Allergies Allergy Verified 04/23/25 15:35 <ELSA Miller Last Filed: 04/24/25 08:41> Active Medications: Current Medications Acetaminophen (Acetaminophen 325 Mg Tablet) 650 mg PO Q6H PRN PRN Reason: Pain, Mild 1-3,fever,headache Calcium Carbonate (Calcium Carbonate 750 Mg Tab.Chew) 750 mg PO Q4H PRN PRN Reason: Heartburn Dextrose/Sodium Chloride (D5ns) 1,000 mls @ 100 mls/hr IVCONT .Q10H [facility] Last Admin: 04/23/25 22:39 Dose: 100 mls/hr Piperacillin Sod/Tazobactam (Sod 3.375 gm/ Sodium Chloride) 50 mls @ 100 mls/hr IV Q6H [facility] Last Infusion: 04/24/25 05:14 Dose: Infused Magnesium Hydroxide (Milk Of Magnesia 30 Ml Oral.Susp) 30 ml PO DAILY PRN PRN Reason: Constipation Melatonin (Melatonin 3 Mg Tablet) 6 mg PO BEDTIME PRN PRN Reason: Insomnia Morphine Sulfate (Morphine Sulfate 4 Mg/Ml Cartridge) 3 mg IVPUSH Q3H PRN; Protocol PRN Reason: Pain, Severe (Pain Scale 7-10) Ondansetron HCl (Ondansetron Hcl 4 Mg/2 Ml Vial) 4 mg IVPUSH Q8H PRN PRN Reason: Nausea and Vomiting Oxycodone HCl (Oxycodone Hcl Immed Release 5 Mg Tablet) 5 mg PO Q4H PRN PRN Reason: Pain, Moderate(Pain Scale 4-6) Sodium Chloride (0.9 % Sodium Chloride Flush 3 Ml Syringe) 3 ml IVFLUSH QSHIFT [facility] Last Admin: 04/24/25 00:37 Dose: Not Given <Palak Uribe PA-C - Last Filed: 04/24/25 08:41> Home medications: Home Medications ?Medication ?Instructions ?Recorded ?Confirmed ?Last Taken ?Type clopidogrel 75 mg tablet 75 mg PO DAILY 04/23/25 04/23/25 04/23/25 History dapagliflozin propanediol 10 mg 10 mg PO DAILY 04/23/25 04/23/25 04/23/25 History tablet (Farxiga) glipizide 10 mg tablet 10 mg PO BID 04/23/25 04/23/25 04/23/25 History loperamide 2 mg capsule 2 mg PO Q4H PRN Loose Stool 04/23/25 04/23/25 Unknown History metoprolol tartrate 50 mg tablet 50 mg PO DAILY 04/23/25 04/23/25 04/23/25 History rosuvastatin 40 mg tablet 40 mg PO BEDTIME 04/23/25 04/23/25 04/22/25 History semaglutide 14 mg tablet (Rybelsus) 14 mg PO DAILY 04/23/25 04/23/25 04/23/25 History spironolactone 25 mg tablet 25 mg PO DAILY 04/23/25 04/23/25 04/23/25 History <ELSA Miller Last Filed: 04/24/25 08:41> Physical Exam Vital Signs: Vital Signs: Last Vital Signs Temp 98.6 F 04/24/25 04:43 Pulse 74 04/24/25 04:43 Resp 20 04/24/25 04:43 BP 130/48 L 04/24/25 04:43 Pulse Ox 98 04/24/25 04:43 O2 Del Method Nasal Cannula 04/24/25 04:43 BMI result Body Mass Index 24.1 <ELSA Miller Last Filed: 04/24/25 08:41> Const: General: comfortable, no acute distress and alert <ELSA Miller Last Filed: 04/24/25 08:41> Nutritional Appearance: well nourished <ELSA Miller Last Filed: 04/24/25 08:41> Orientation/consciousness: patient oriented x3 <ELSA Miller Last Filed: 04/24/25 08:41> Chest: Other: AICD present left chest wall <ELSA Miller Last Filed: 04/24/25 08:41> Resp: Effort & Inspection: normal respiratory effort, able to speak in complete sentences and not labored <ELSA Miller Last Filed: 04/24/25 08:41> Cardio: Rate: regular rate <ELSA Miller Last Filed: 04/24/25 08:41> GI: Inspection: Yes normal to inspection and No distended <ELSA Miller Last Filed: 04/24/25 08:41> Palpation (GI): Soft to palpation, Tenderness to palpation present (GI) (moderate RUQ tenderness ), no guarding and not rigid <ELSA Miller Last Filed: 04/24/25 08:41> Percussion: Yes normal to percussion <ELSA Miller Last Filed: 04/24/25 08:41> Skin: General skin exam: no rashes or lesions noted and no jaundice <ELSA Miller Last Filed: 04/24/25 08:41> Neuro: General: patient oriented x3 and moves all extremities <ELSA Miller Last Filed: 04/24/25 08:41> Extrem: General: Yes no clubbing, cyanosis or edema <ELSA Miller Last Filed: 04/24/25 08:41> Results Results Labs: Short CBC 04/23/25 Range/Units 16:04 WBC 14.0 H (4.8-10.8) X10*3/uL Hgb 15.1 (14.0-18.0) g/dl Hct 42.2 (42.0-52.0) % Plt Count 116 L (160-400) X10*3/uL BMP 04/23/25 16:04 Sodium 138 Potassium 2.6 L* Chloride 103 Carbon Dioxide 25 BUN 16 Creatinine 1.18 Calcium 9.0 Liver Function 04/23/25 Range/Units 16:04 Total Bilirubin 3.3 H (0.0-1.0) mg/dL Direct Bilirubin 2.3 H (0.0-0.5) mg/dL AST 135 H (5-37) U/L ALT 70 H (0-40) U/L Alkaline Phosphatase 125 H (39-117) U/L Albumin 4.0 (3.5-5.0) g/dL Urine 04/23/25 Range/Units 19:19 Urine Color Dark Yellow Urine Appearance Clear Urine pH 5.5 (5.0-9.0) Ur Specific [place] 1.020 (1.005-1.025) Urine Protein 30 (1+) H (Neg-Trace) mg/dL Urine Glucose (UA) >=1000 H (Negative) mg/dL <ELSA Miller Last Filed: 04/24/25 08:41> Abdomen CT scan report/results: report reviewed and image reviewed <Palak Uribe PA-C - Last Filed: 04/24/25 08:41> Abdominal ultrasound report/results: report reviewed and image reviewed <Palak Uribe PA-C - Last Filed: 04/24/25 08:41> Assessment and Plan (1) Abnormal LFTs: Status: Acute <ELSA Miller Last Filed: 04/24/25 08:41> (2) Acute cholecystitis: Status: Acute <ELSA Miller Last Filed: 04/24/25 08:41> 84 year old male with distant hx of 5 vessel CABG, [place] 1 year following, s/p prophylactic AICD (15 years ago), HTN, diabetes mellitus who presented with RUQ pain, vomiting with a few weeks history of diarrhea. CT scan/ABD US showed markedly distended gallbladder with large amount of sludge and gallbladder wall thickening. WBC count of 14 on presentation. He reports resolution of his abd pain but he remains tender in the RUQ this morning. He was also found to have elevated LFTs, trending up this AM. Picture consistent with acute cholecystitis however concern of CBD obstruction due to elevated bilirubin. He was started on IV zosyn, IVF, NPO status for now. One blood culture positive for GNR on gram stain. HIDA scan ordered as he cannot have MRI due to ACID to further assess CBD. GI also consulted for eval. Hospitalists consulted for management of his medical comorbidities, perioperative risk stratification. Hold plavix for possible surgical intervention, last dose yesterday morning. <Palak Uribe PA-C - Last Filed: 04/24/25 08:41> 84 year old male with distant hx of 5 vessel CABG, [place] 1 year following, s/p prophylactic AICD (15 years ago), HTN, diabetes mellitus who presented with RUQ pain, vomiting with a few weeks history of diarrhea. CT scan/ABD US showed markedly distended gallbladder with large amount of sludge and gallbladder wall thickening. WBC count of 14 on presentation. He reports resolution of his abd pain but he remains tender in the RUQ this morning. He was also found to have elevated LFTs, trending up this AM. Picture consistent with acute cholecystitis however concern of CBD obstruction due to elevated bilirubin. He was started on IV zosyn, IVF, NPO status for now. One blood culture positive for GNR on gram stain. HIDA scan ordered as he cannot have MRI due to ACID to further assess CBD. GI also consulted for eval. Hospitalists consulted for management of his medical comorbidities, perioperative risk stratification. Hold plavix for possible surgical intervention, last dose yesterday morning. Patient seen and examined and I agree with the above assessment and plan. Patient will need further evaluation by hospitalist team regarding his surgical risk assessment. HIDA scan pending to evaluate for common bile duct obstruction. Discussed with the patient he has expressed understanding and agrees with the plan. <Blayne Faustin MD - Last Filed: 04/24/25 11:11> Quality Stroke Does the patient have a stroke diagnosis?: No <Palak Uribe PA-C - Last Filed: 04/24/25 08:41> VTE Prior VTE?: No <Palak Uribe PA-C - Last Filed: 04/24/25 08:41> VTE Risk Level:: Surgical - moderate <Palak Uribe PA-C - Last Filed: 04/24/25 08:41> VTE Device Contraindication: N/A - Device Ordered <Palak Uribe PA-C - Last Filed: 04/24/25 08:41> VTE Drug Contraindication: Treatment Not Indicated <Palak Uribe PA-C - Last Filed: 04/24/25 08:41> Procedures Date of Service Date of Service: 04/24/25 <Palak Uribe PA-C - Last Filed: 04/24/25 08:41> 04/24/25 <Blayne Faustin MD - Last Filed: 04/24/25 11:11>
[2025-04-24 05:41] LABS: Basophils Percent Auto 0.3 % (0-2); Eosinophils Absolute Auto 0.2 X10*3/uL (0.0-0.4); Eosinophils Percent Auto 1.3 % (0-4); Hematocrit 39.8 % (42.0-52.0); Hemoglobin 14.1 g/dl (14.0-18.0); Imm Gran Abs Auto 0.06 X10*3/uL (0.00-0.03); Imm Gran Pct Auto 0.5 % (0.0-0.4); Lymphocytes Absolute Auto 0.8 X10*3/uL (1.2-4.9); Lymphocytes Percent Auto 6.3 % (20-40); Mean Corpuscular HGB Conc 35.4 g/dl (31.0-36.0); Mean Corpuscular Hemoglobin 29.4 pg (27.0-33.0); Mean Corpuscular Volume 82.9 fL (80.0-98.0); Mean Platelet Volume 10.6 fL (9.4-12.4); Monocytes Absolute Auto 0.8 X10*3/uL (0.1-1.2); Monocytes Percent Auto 7.1 % (2-11); Neutrophils Percent Auto 84.5 % (45-73); Platelet Count 97 X10*3/uL (160-400); Red Cell Distribution Width 13.5 % (11.0-16.0); White Blood Count 11.9 X10*3/uL (4.8-10.8)
[2025-04-24] MEDS: Lactated Ringers 1,000 ML 80 ML IVCONT (05:56)
[2025-04-24 06:03] LABS: Alanine Aminotransferase 91 U/L (0-40); Albumin Level 3.2 g/dL (3.5-5.0); Alkaline Phosphatase 114 U/L (39-117); Anion Gap 12 (12-20); Aspartate Amino Transferase 121 U/L (5-37); Bilirubin Total 3.5 mg/dL (0.0-1.0); Blood Urea Nitrogen 11 mg/dL (9-16); Calcium 8.3 mg/dL (8.4-10.2); Carbon Dioxide 21 mmol/L (22-29); Chloride 111 mmol/L (96-108); Creatinine Clr Calc Pharmacy 76.9; Estimated Glomerular Filt Rate > 60; Glucose Random 101 mg/dL (60-115); Magnesium 1.9 mg/dL (1.6-2.6); Sodium 141 mmol/L (135-145); Total Protein 5.4 g/dL (6.5-8.0)
[2025-04-24 07:18] LABS: Glucose, Whole Blood 89 mg/dL (60-115)
[2025-04-24] MEDS: Metoprolol Tartrate 50 MG TABLET PO (08:57)
--- NOTE | 2025-04-24 08:57 | P.CNGI_ITS ---
History of Present Illness Data of Consult Service Date: 04/24/25 Requesting physician: Palak Uribe Primary Care Provider: Romie Vieyra MD HPI Reason for consult: Abd pain, elevated LFTs 84 y.o M with PMH coronary artery disease status post CABG, with results and cardiomyopathy status post AICD, hypertension, type 2 diabetes, who presented to the hospital for feeling unwell. Reports that around 2 weeks ago he developed diarrhea and vomiting. Diarrhea resolved a week ago but continued to have vomiting and poor appetite. He then also developed abdominal pain 2 days ago. When he started to feel weak, he called his PCP who recommended come to the emergency room to get evaluated. He has not had any further nausea or vomiting since coming in. On initial presentation he was noted to have mild leukocytosis and thrombocytopenia with elevated LFTs AST greater than ALT, total bilirubin of 3.5. Ultrasound with distended gallbladder but normal caliber of bile duct. Gastroenterology has been consulted for question of CBD stone. Review of Systems 2 Review of Systems: Yes all other systems are reviewed and are negative [facility] Past Medical History Medical History (Updated 04/24/25 @ 13:26 by OWEN Boykin) Non-insulin dependent type 2 diabetes mellitus CAD (coronary artery disease) Surgical History Surgical History (Updated 04/24/25 @ 08:28 by Palak Uribe PA-C) AICD present, double chamber Hx of CABG Social History Social History Household Members: None Household Members Other:: self, daughter next door Housing: Homeless Do you presently have visiting nurse or other home services: No Patient Tobacco Use Status: Former Tobacco user Smoked in Last 30 Days: No Use of substances other than those prescribed or required for medical reasons: No Have you been hit, kicked, punched, or otherwise hurt by someone within the past year? If so, by whom?: No Do you feel safe in your current relationship?: No Current Relationship Is there a partner from a previous relationship who is making you feel unsafe now?: No Are you made to feel afraid or neglected: No Advance Directives: No Advance Directives Information Provided: No Do you have a plan to hurt others: No Plan Recently lost weight without trying: No Eating poorly because of decreased appetite: Yes Nutrition Risks: Dental problems Meds Allergies Allergy/AdvReac Type Severity Reaction Status Date / Time No Known Allergies Allergy Verified 04/23/25 15:35 Active Medications: Current Medications Acetaminophen (Acetaminophen 325 Mg Tablet) 650 mg PO Q6H PRN PRN Reason: Pain, Mild 1-3,fever,headache Calcium Carbonate (Calcium Carbonate 750 Mg Tab.Chew) 750 mg PO Q4H PRN PRN Reason: Heartburn Dextrose (Dextrose 50 % 25 Gm/50 Ml Syringe) 25 gm IVPUSH Q15M PRN; Protocol PRN Reason: per Hypoglycemia Standing Ord. Glucose (Glucose Gel 15 Gm Gel..Gram.) 15 gm PO Q15M PRN; Protocol PRN Reason: per Hypoglycemia Standing Ord. Piperacillin Sod/Tazobactam (Sod 3.375 gm/ Sodium Chloride) 50 mls @ 100 mls/hr IV Q6H [facility] Last Infusion: 04/24/25 05:14 Dose: Infused Lactated Ringer's (Lr) 1,000 mls @ 80 mls/hr IVCONT .[id number] [facility] Last Admin: 04/24/25 05:56 Dose: 80 mls/hr Insulin Human Lispro (Insulin Lispro 100 Unit/Ml 3 Ml Vial) 0 unit SUBCUT QIDACHS [facility]; Protocol Last Admin: 04/24/25 08:46 Dose: Not Given Magnesium Hydroxide (Milk Of Magnesia 30 Ml Oral.Susp) 30 ml PO DAILY PRN PRN Reason: Constipation Melatonin (Melatonin 3 Mg Tablet) 6 mg PO BEDTIME PRN PRN Reason: Insomnia Metoprolol Tartrate (Metoprolol Tartrate 50 Mg Tablet) 50 mg PO DAILY [facility]; Protocol Morphine Sulfate (Morphine Sulfate 4 Mg/Ml Cartridge) 3 mg IVPUSH Q3H PRN; Protocol PRN Reason: Pain, Severe (Pain Scale 7-10) Ondansetron HCl (Ondansetron Hcl 4 Mg/2 Ml Vial) 4 mg IVPUSH Q8H PRN PRN Reason: Nausea and Vomiting Oxycodone HCl (Oxycodone Hcl Immed Release 5 Mg Tablet) 5 mg PO Q4H PRN PRN Reason: Pain, Moderate(Pain Scale 4-6) Sodium Chloride (0.9 % Sodium Chloride Flush 3 Ml Syringe) [facility] Last Admin: 04/24/25 00:37 Dose: Not Given Home Medications ?Medication ?Instructions ?Recorded ?Confirmed ?Last Taken ?Type clopidogrel 75 mg tablet 75 mg PO DAILY 04/23/25 04/23/25 04/23/25 History dapagliflozin propanediol 10 mg 10 mg PO DAILY 04/23/25 04/23/25 04/23/25 History tablet (Farxiga) glipizide 10 mg tablet 10 mg PO BID 04/23/25 04/23/25 04/23/25 History loperamide 2 mg capsule 2 mg PO Q4H PRN Loose Stool 04/23/25 04/23/25 Unknown History metoprolol tartrate 50 mg tablet 50 mg PO DAILY 04/23/25 04/23/25 04/23/25 History rosuvastatin 40 mg tablet 40 mg PO BEDTIME 04/23/25 04/23/25 04/22/25 History semaglutide 14 mg tablet (Rybelsus) 14 mg PO DAILY 04/23/25 04/23/25 04/23/25 History spironolactone 25 mg tablet 25 mg PO DAILY 04/23/25 04/23/25 04/23/25 History Physical Exam 2 Vital Signs: Vital Signs: Last Vital Signs Temp 98.6 F 04/24/25 06:16 Pulse 64 04/24/25 06:16 Resp 18 04/24/25 06:16 BP 112/49 L 04/24/25 06:16 Pulse Ox 95 04/24/25 06:16 O2 Del Method Room Air 04/24/25 06:16 BMI result Body Mass Index 24.1 No apparent distress Nonicteric Abdomen soft, nondistended, nontender, no guarding Alert and oriented x3, normal gait Results Labs 04/24/25 04:41 04/24/25 04:41 Labs: Short CBC 04/23/25 04/24/25 Range/Units 16:04 04:41 WBC 14.0 H 11.9 H (4.8-10.8) X10*3/uL Hgb 15.1 14.1 (14.0-18.0) g/dl Hct 42.2 39.8 L (42.0-52.0) % Plt Count 116 L 97 L (160-400) X10*3/uL BMP 04/23/25 04/24/25 16:04 04:41 Sodium 138 141 Potassium 2.6 L* 3.0 L Chloride 103 111 H Carbon Dioxide 25 21 L BUN 16 11 Creatinine 1.18 0.74 Calcium 9.0 8.3 L D Liver Function 04/23/25 04/24/25 Range/Units 16:04 04:41 Total Bilirubin 3.3 H 3.5 H (0.0-1.0) mg/dL Direct Bilirubin 2.3 H (0.0-0.5) mg/dL AST 135 H 121 H (5-37) U/L ALT 70 H 91 H (0-40) U/L Alkaline Phosphatase 125 H 114 (39-117) U/L Albumin 4.0 3.2 L (3.5-5.0) g/dL Urine 04/23/25 Range/Units 19:19 Urine Color Dark Yellow Urine Appearance Clear Urine pH 5.5 (5.0-9.0) Ur Specific [place] 1.020 (1.005-1.025) Urine Protein 30 (1+) H (Neg-Trace) mg/dL Urine Glucose (UA) >=1000 H (Negative) mg/dL Microbiology Microbiology Results: Microbiology 04/23/25 16:04 Blood - Venous Blood Culture - Preliminary Prelim: GNR Gram Stain only Assessment and Plan (1) Abnormal LFTs: Status: Acute (2) Vomiting: Status: Acute (3) Acute cholecystitis: Status: Acute Plan Patient presenting with feeling unwell now with distended gallbladder, but interestingly without any clinical signs of acute cholecystitis on exam. Gastroenterology consulted for question of CBD stone given elevated LFTs. Based on age and LFTs falls under intermediate probability. Pt has AICD which is not MRI compatible per his report. HIDA scan pending. Plan: - Keep NPO for now - Follow HIDA scan results - If has isotope excretion from GB but no flow into small bowel, that will indicate CBD stone and pt will need ERCP in that case - He is only on plavix monotherapy which is not prohibitive for sphincterotomy from GI standpoint Thank you for allowing me to participate in his care. Please do not hesitate to reach out for questions or concerns. Procedures Date of Service Date of Service: 04/24/25
[2025-04-24] MEDS: 0.9 % Sodium Chloride Flush 3 ML SYRINGE IVFLUSH ×3 (09:05→22:04)
--- NOTE | 2025-04-24 11:39 | HO.PM.IMCN ---
History of Present Illness Data of Consult Service Date: 04/24/25 Primary Care Provider: Romie Vieyra MD HPI Reason for consult: Surgical risk stratification Pt is an 84-year-old male with a PMH significant for CAD s/p 5 vessel CABG in 2002, [place] in 2003, s/p prophylactic AICD (15 years ago), HTN, and njt-iolhugn-[id number] type 2 diabetes who initially presented to the ED with intermittent nausea, vomiting, and diarrhea x3 weeks after recent [place] cruise and trip to [place], and then RUQ abdominal pain with nausea since this morning. Workup was concerning for possible acute cholecystitis and pt was admitted to the hospital under general surgery services. Hospitalist consult for medical management and preop clearance. Pt currently reports symptoms have largely resolved. No nausea, vomiting, diarrhea, or significant abdominal tenderness. Denies chest pain/pressure, palpitations. No SOB or difficulty breathing. Denies polyuria or dysuria. Pt reports follows regularly with Dr. Parmjit Pena at [facility]. Last echo earlier this year in January. Reports had previous surgery at [facility] a few years ago where AICD was stopped during surgery and then restarted immediately thereafter. No cardiac complications. No difficulties with anesthesia. Review of Systems Review of Systems: Negative except for that which is stated in the HPI. [facility] Medical History (Updated 04/24/25 @ 13:26 by OWEN Boykin) Non-insulin dependent type 2 diabetes mellitus CAD (coronary artery disease) Surgical History (Updated 04/24/25 @ 08:28 by Palak Uribe PA-C) AICD present, double chamber Hx of CABG Social History Household Members: None Household Members Other:: self, daughter next door Housing: Homeless Do you presently have visiting nurse or other home services: No Patient Tobacco Use Status: Former Tobacco user Smoked in Last 30 Days: No Use of substances other than those prescribed or required for medical reasons: No Have you been hit, kicked, punched, or otherwise hurt by someone within the past year? If so, by whom?: No Do you feel safe in your current relationship?: No Current Relationship Is there a partner from a previous relationship who is making you feel unsafe now?: No Are you made to feel afraid or neglected: No Advance Directives: No Advance Directives Information Provided: No Do you have a plan to hurt others: No Plan Recently lost weight without trying: No Eating poorly because of decreased appetite: Yes Nutrition Risks: Dental problems Meds Allergies Allergy/AdvReac Type Severity Reaction Status Date / Time No Known Allergies Allergy Verified 04/23/25 15:35 Active Medications: Current Medications Acetaminophen (Acetaminophen 325 Mg Tablet) 650 mg PO Q6H PRN PRN Reason: Pain, Mild 1-3,fever,headache Calcium Carbonate (Calcium Carbonate 750 Mg Tab.Chew) 750 mg PO Q4H PRN PRN Reason: Heartburn Dextrose (Dextrose 50 % 25 Gm/50 Ml Syringe) 25 gm IVPUSH Q15M PRN; Protocol PRN Reason: per Hypoglycemia Standing Ord. Glucose (Glucose Gel 15 Gm Gel..Gram.) 15 gm PO Q15M PRN; Protocol PRN Reason: per Hypoglycemia Standing Ord. Piperacillin Sod/Tazobactam (Sod 3.375 gm/ Sodium Chloride) 50 mls @ 100 mls/hr IV Q6H [facility] Last Admin: 04/24/25 09:06 Dose: 100 mls/hr Lactated Ringer's (Lr) 1,000 mls @ 80 mls/hr IVCONT .[id number] [facility] Last Admin: 04/24/25 05:56 Dose: 80 mls/hr Insulin Human Lispro (Insulin Lispro 100 Unit/Ml 3 Ml Vial) 0 unit SUBCUT QIDACHS [facility]; Protocol Last Admin: 04/24/25 08:46 Dose: Not Given Magnesium Hydroxide (Milk Of Magnesia 30 Ml Oral.Susp) 30 ml PO DAILY PRN PRN Reason: Constipation Melatonin (Melatonin 3 Mg Tablet) 6 mg PO BEDTIME PRN PRN Reason: Insomnia Metoprolol Tartrate (Metoprolol Tartrate 50 Mg Tablet) 50 mg PO DAILY [facility]; Protocol Last Admin: 04/24/25 08:57 Dose: 50 mg Morphine Sulfate (Morphine Sulfate 4 Mg/Ml Cartridge) 3 mg IVPUSH Q3H PRN; Protocol PRN Reason: Pain, Severe (Pain Scale 7-10) Ondansetron HCl (Ondansetron Hcl 4 Mg/2 Ml Vial) 4 mg IVPUSH Q8H PRN PRN Reason: Nausea and Vomiting Oxycodone HCl (Oxycodone Hcl Immed Release 5 Mg Tablet) 5 mg PO Q4H PRN PRN Reason: Pain, Moderate(Pain Scale 4-6) Sodium Chloride (0.9 % Sodium Chloride Flush 3 Ml Syringe) 3 ml IVFLUSH QSHIFT [facility] Last Admin: 04/24/25 09:05 Dose: 3 ml Home Medications ?Medication ?Instructions ?Recorded ?Confirmed ?Last Taken ?Type clopidogrel 75 mg tablet 75 mg PO DAILY 04/23/25 04/23/25 04/23/25 History dapagliflozin propanediol 10 mg 10 mg PO DAILY 04/23/25 04/23/25 04/23/25 History tablet (Farxiga) glipizide 10 mg tablet 10 mg PO BID 04/23/25 04/23/25 04/23/25 History loperamide 2 mg capsule 2 mg PO Q4H PRN Loose Stool 04/23/25 04/23/25 Unknown History metoprolol tartrate 50 mg tablet 50 mg PO DAILY 04/23/25 04/23/25 04/23/25 History rosuvastatin 40 mg tablet 40 mg PO BEDTIME 04/23/25 04/23/25 04/22/25 History semaglutide 14 mg tablet (Rybelsus) 14 mg PO DAILY 04/23/25 04/23/25 04/23/25 History spironolactone 25 mg tablet 25 mg PO DAILY 04/23/25 04/23/25 04/23/25 History Physical Exam Vital Signs and Narrative: Vital Signs: Last Vital Signs Temp 98.6 F 04/24/25 06:16 Pulse 62 04/24/25 08:57 Resp 18 04/24/25 06:16 BP 127/59 L 04/24/25 08:57 Pulse Ox 95 04/24/25 06:16 O2 Del Method Room Air 04/24/25 06:16 BMI result Body Mass Index 24.1 General: AOx3, no acute distress Resp: CTA bilaterally CVS: S1, S2, RRR GI: +BS, no distention, mild to moderate RUQ tenderness Skin: Warm, dry Neuro: Cranial nerves II-XII grossly intact bilaterally. Motor grossly intact bilaterally Extremities: No edema Psych: Appropriate affect Results Labs 04/24/25 04:41 04/24/25 04:41 Labs: Laboratory Results - last 24 hr 04/23/25 04/23/25 04/23/25 16:04 18:27 19:19 MCV 82.3 MCH 29.4 MCHC 35.8 RDW 13.3 Plt Count 116 L MPV 10.0 Immature Gran % (Auto) 0.4 Neut % (Auto) 88.7 H Lymph % (Auto) 3.0 L Mcdonald % (Auto) 7.7 Eos % (Auto) 0.1 Baso % (Auto) 0.1 Lymph # (Auto) 0.4 L Mcdonald # (Auto) 1.1 Eos # (Auto) 0.0 Baso # (Auto) 0.0 Abs Immat Gran (auto) 0.05 H Absolute Neuts (auto) 12.4 H Absolute Nucleated RBC 0.000 Nucleated RBC % (auto) 0.0 Anion Gap 13 Estim Creat Clear Calc 48.2 Estimated GFR 59 POC Glucose Random Glucose 184 H Lactic Acid 2.2 H* Lactic Acid F/U @ 2Hr 1.5 Calcium 9.0 Magnesium 1.4 L* Total Bilirubin 3.3 H Direct Bilirubin 2.3 H AST 135 H ALT 70 H Alkaline Phosphatase 125 H C-Reactive Protein 0.61 H Total Protein 6.4 L Albumin 4.0 Lipase 27 Urine Color Dark Yellow Urine Appearance Clear Urine pH 5.5 Ur Specific [place] 1.020 Urine Protein 30 (1+) H Urine Glucose (UA) >=1000 H Urine Ketones Trace Urine Blood Trace H Urine Nitrite Negative Ur Leukocyte Esterase Small (1+) H Urine RBC 0-2 Urine WBC 21-50 H Ur Squamous Epith Cells 6-10 Urine Bacteria 1+ Hyaline Casts 3-5 04/24/25 04/24/25 04:41 07:15 MCV 82.9 MCH 29.4 MCHC 35.4 RDW 13.5 Plt Count 97 L MPV 10.6 Immature Gran % (Auto) 0.5 H Neut % (Auto) 84.5 H Lymph % (Auto) 6.3 L Mcdonald % (Auto) 7.1 Eos % (Auto) 1.3 Baso % (Auto) 0.3 Lymph # (Auto) 0.8 L Mcdonald # (Auto) 0.8 Eos # (Auto) 0.2 Baso # (Auto) 0.0 Abs Immat Gran (auto) 0.06 H Absolute Neuts (auto) 10.0 H Absolute Nucleated RBC 0.000 Nucleated RBC % (auto) 0.0 Anion Gap 12 Estim Creat Clear Calc 76.9 Estimated GFR > 60 POC Glucose 89 Random Glucose 101 Lactic Acid Lactic Acid F/U @ 2Hr Calcium 8.3 L D Magnesium 1.9 Total Bilirubin 3.5 H Direct Bilirubin AST 121 H ALT 91 H Alkaline Phosphatase 114 C-Reactive Protein Total Protein 5.4 L Albumin 3.2 L Lipase Urine Color Urine Appearance Urine pH Ur Specific [place] Urine Protein Urine Glucose (UA) Urine Ketones Urine Blood Urine Nitrite Ur Leukocyte Esterase Urine RBC Urine WBC Ur Squamous Epith Cells Urine Bacteria Hyaline Casts Assessment and Plan (1) Abnormal LFTs: Status: Acute (2) Hypokalemia: Status: Acute Plan Pt is an 84-year-old male with a PMH significant for CAD s/p 5 vessel CABG in 2002, [place] in 2003, s/p prophylactic AICD (15 years ago), HTN, and ftx-hdrvjdq-nlfozglaw type 2 diabetes who initially presented to the ED with intermittent nausea, vomiting, and diarrhea x3 weeks after recent [place] cruise and trip to [place], and then RUQ abdominal pain with nausea since this morning. Workup was concerning for possible acute cholecystitis and pt was admitted to the hospital under general surgery services. Hospitalist consult for medical management and preop clearance. Question of acute cholecystitis Pt being covered with Zosyn Currently NPO Plan as per General surgery CAD with AICD in place S/p 5 vessel CABG in 2022, [place] in 2023 AICD implanted 15+ years ago CAD apparently stable without complications for at least a decade Follows with Parmjit Pena in [facility] Will get cardiology consult for pre-op clearance for possibly pausing AICD during surgery Hold Plavix, resume as per General surgery Continue statin Hypokalemia In the setting of GI losses as above Pt received potassium IV supplementation Will supplement with additional IV Follow potassium Non-insulin dependent diabetes type 2 POC continuous decline 89-->66 Hold Farxiga, glipizide, semaglutide while NPO Will switch maintenance IVF to D5 LR @80 mls/h Place on sliding scale insulin Question of UTI UA equivocal and possibly contaminated with negative nitrite, positive leukocyte esterase, wbc's 25-50, bacteria 1+, and squamous epithelial cells 6-10 Pt asymptomatic without polyuria or dysuria Already being covered with Zosyn as above Follow UA culture, adjust ABX as necessary Thank you for allowing us to participate in the care of this pt. Will continue to follow along with you.
[2025-04-24 11:56] LABS: Glucose, Whole Blood 66 mg/dL (60-115)
[2025-04-24] MEDS: Dextrose 50 % 25 GM/50 ML SYRINGE IVPUSH ×2 (12:14→16:29)
[2025-04-24 12:44] LABS: Glucose, Whole Blood 159 mg/dL (60-115)
[2025-04-24] MEDS: Dextrose 5 % and Lactated Ring 1,000 ML 80 ML IVCONT (12:46)
[2025-04-24] MEDS: Potassium Chloride/H20 10 MEQ/100 ML PIGGYBACK 100 MEQ IV ×2 (13:43→16:10)
[2025-04-24 16:06] LABS: Glucose, Whole Blood 66 mg/dL (60-115)
[2025-04-24 17:30] LABS: Glucose, Whole Blood 190 mg/dL (60-115)
--- NOTE | 2025-04-24 18:38 | PC.NURSE ---
11:51 blood sugar 66, pt asymptomatic at this time, OWEN Giordano made aware, pt given d50 IVP per JAN, bs recheck 159, d5LR started at 80ml/hr. 16:03 blood sugar 66, pt asymptomatic at this time, OWEN Giordano made aware, pt given d50 IVP per MAR, bs recheck 190, d5LR increased to 100ml/hr.
[2025-04-24 20:10] LABS: Glucose, Whole Blood 138 mg/dL (60-115)
[2025-04-24] MEDS: Dextrose 5 % and Lactated Ring 1,000 ML 100 ML IVCONT (22:03)
[2025-04-25] VITALS (13 sets, daily range): BP systolic 131–156; BP diastolic 62–73; PULSE 59–69; RESP 14–20; TEMP 36–36.8; O2SAT 95–98
[2025-04-25] MEDS: Piperacillin Sodium/Tazobactam 3.375 GM in 0.9 % Sodium Chloride 50 ML IV ×4 (04:01→22:34)
[2025-04-25 06:27] LABS: Alanine Aminotransferase 86 U/L (0-40); Alkaline Phosphatase 148 U/L (39-117); Aspartate Amino Transferase 81 U/L (5-37); Bilirubin Total 4.1 mg/dL (0.0-1.0); Total Protein 5.2 g/dL (6.5-8.0)
[2025-04-25 06:53] LABS: Basophils Percent Auto 0.1 % (0-2); Eosinophils Absolute Auto 0.1 X10*3/uL (0.0-0.4); Eosinophils Percent Auto 1.3 % (0-4); Hematocrit 38.7 % (42.0-52.0); Hemoglobin 13.7 g/dl (14.0-18.0); Imm Gran Abs Auto 0.02 X10*3/uL (0.00-0.03); Imm Gran Pct Auto 0.3 % (0.0-0.4); Lymphocytes Absolute Auto 0.7 X10*3/uL (1.2-4.9); Lymphocytes Percent Auto 8.6 % (20-40); MANUAL DIFF FLAG SCAN; Mean Corpuscular HGB Conc 35.4 g/dl (31.0-36.0); Mean Corpuscular Hemoglobin 29.6 pg (27.0-33.0); Mean Corpuscular Volume 83.6 fL (80.0-98.0); Mean Platelet Volume 10.5 fL (9.4-12.4); Monocytes Absolute Auto 0.5 X10*3/uL (0.1-1.2); Neutrophils Absolute Auto 6.3 x10*3/uL (2.0-8.3); Neutrophils Percent Auto 83.7 % (45-73); Red Blood Count 4.63 X10*6/uL (4.60-5.80); Red Cell Distribution Width 13.8 % (11.0-16.0); SCAN SMEAR FLAG 1; White Blood Count 7.6 X10*3/uL (4.8-10.8)
[2025-04-25 06:57] LABS: Platelet Count 91 X10*3/uL (160-400)
[2025-04-25 07:39] LABS: Glucose, Whole Blood 156 mg/dL (60-115)
--- NOTE | 2025-04-25 07:45 | P.PNGS_ITS ---
Subjective Subjective Date of Service: 04/25/25 <Palak Uribe PA-C - Last Filed: 04/25/25 08:01> 04/25/25 <Blayne Faustin MD - Last Filed: 04/25/25 08:20> Interval history: Feels crummy today. Denies abd pain. Wondering about the plan. Complaining that he cant drink water. <Palak Uribe PA-C - Last Filed: 04/25/25 08:01> Physical Exam 2 Vital Signs: Vital Signs: Last Vital Signs Temp 98.2 F 04/25/25 03:10 Pulse 69 04/25/25 03:10 Resp 18 04/25/25 03:10 BP 131/62 04/25/25 03:10 Pulse Ox 98 04/25/25 03:10 O2 Del Method Room Air 04/25/25 03:10 BMI result Body Mass Index 24.1 <Palak Uribe PA-C - Last Filed: 04/25/25 08:01> Const: General: comfortable, no acute distress and alert <Palak Uribe PA-C - Last Filed: 04/25/25 08:01> Orientation/consciousness: patient oriented x3 <ELSA Miller Last Filed: 04/25/25 08:01> Resp: Effort & Inspection: normal respiratory effort <Palak Uribe PA-C - Last Filed: 04/25/25 08:01> GI: Inspection: No distended <Palak Uribe PA-C - Last Filed: 04/25/25 08:01> Palpation (GI): Tenderness to palpation present (GI) (very mild RUQ tenderness) and no guarding <ELSA Miller Last Filed: 04/25/25 08:01> Skin: General skin exam: no rashes or lesions noted and jaundice <ELSA Miller Last Filed: 04/25/25 08:01> Neuro: General: patient oriented x3 <ELSA Miller Last Filed: 04/25/25 08:01> Objective Data Active Medications Acetaminophen (Acetaminophen 325 Mg Tablet) 650 mg PO Q6H PRN PRN Reason: Pain, Mild 1-3,fever,headache Calcium Carbonate (Calcium Carbonate 750 Mg Tab.Chew) 750 mg PO Q4H PRN PRN Reason: Heartburn Dextrose (Dextrose 50 % 25 Gm/50 Ml Syringe) 25 gm IVPUSH Q15M PRN; Protocol PRN Reason: per Hypoglycemia Standing Ord. Last Admin: 04/24/25 16:29 Dose: 25 gm Documented By: MARTINA Glucose (Glucose Gel 15 Gm Gel..Gram.) 15 gm PO Q15M PRN; Protocol PRN Reason: per Hypoglycemia Standing Ord. Piperacillin Sod/Tazobactam (Sod 3.375 gm/ Sodium Chloride) 50 mls @ 100 mls/hr IV Q6H [facility] Last Infusion: 04/25/25 04:32 Dose: Infused Documented By: ELIE Dextrose/Lactated Ringer's (D5lr) 1,000 mls @ 100 mls/hr IVCONT .Q10H [facility] Last Infusion: 04/25/25 04:32 Dose: 100 mls/hr Documented By: ELIE Insulin Human Lispro (Insulin Lispro 100 Unit/Ml 3 Ml Vial) 0 unit SUBCUT QIDACHS [facility]; Protocol Last Admin: 04/25/25 07:42 Dose: Not Given Documented By: MARTINA Non-Admin Reason: NPO Magnesium Hydroxide (Milk Of Magnesia 30 Ml Oral.Susp) 30 ml PO DAILY PRN PRN Reason: Constipation Melatonin (Melatonin 3 Mg Tablet) 6 mg PO BEDTIME PRN PRN Reason: Insomnia Metoprolol Tartrate (Metoprolol Tartrate 50 Mg Tablet) 50 mg PO DAILY [facility]; Protocol Last Admin: 04/24/25 08:57 Dose: 50 mg Documented By: YUDELKA Morphine Sulfate (Morphine Sulfate 4 Mg/Ml Cartridge) 3 mg IVPUSH Q3H PRN; Protocol PRN Reason: Pain, Severe (Pain Scale 7-10) Ondansetron HCl (Ondansetron Hcl 4 Mg/2 Ml Vial) 4 mg IVPUSH Q8H PRN PRN Reason: Nausea and Vomiting Oxycodone HCl (Oxycodone Hcl Immed Release 5 Mg Tablet) 5 mg PO Q4H PRN PRN Reason: Pain, Moderate(Pain Scale 4-6) Sodium Chloride (0.9 % Sodium Chloride Flush 3 Ml Syringe) 3 ml IVFLUSH QSHIFT [facility] Last Admin: 04/24/25 22:04 Dose: 3 ml Documented By: ELIE <Palak Uribe PA-C - Last Filed: 04/25/25 08:01> Labs CBC & Chem 7: 04/24/25 04:41 04/24/25 04:41 <Palak Uribe PA-C - Last Filed: 04/25/25 08:01> Labs: Laboratory Results - last 24 hr 04/24/25 04/24/25 04/24/25 11:51 12:39 16:03 POC Glucose 66 159 H 66 Total Bilirubin Direct Bilirubin AST ALT Alkaline Phosphatase Total Protein Albumin 04/24/25 04/24/25 04/25/25 17:17 19:21 05:32 POC Glucose 190 H 138 H Total Bilirubin 4.1 H Direct Bilirubin 3.0 H AST 81 H ALT 86 H Alkaline Phosphatase 148 H Total Protein 5.2 L Albumin 3.0 L 04/25/25 07:28 POC Glucose 156 H Total Bilirubin Direct Bilirubin AST ALT Alkaline Phosphatase Total Protein Albumin <Palak Uribe PA-C - Last Filed: 04/25/25 08:01> Microbiology Microbiology Results: Microbiology 04/23/25 16:04 Blood Culture - Preliminary Blood - Venous No growth after 24 hours. 04/23/25 21:04 Urine Culture - Preliminary Urine clean catch - Clean Catch Midstream Culture too young to evaluate. 04/23/25 16:04 Blood Culture - Preliminary Blood - Venous Prelim: GNR Gram Stain only <Palak Uribe PA-C - Last Filed: 04/25/25 08:01> Procedures Date of Service Date of Service: 04/25/25 <Palak Uribe PA-C - Last Filed: 04/25/25 08:01> 04/25/25 <Blayne Faustin MD - Last Filed: 04/25/25 08:20> Progress Note: A&P Assessment and plan (1) Acute cholecystitis: Status: Acute <ELSA Miller Last Filed: 04/25/25 08:01> (2) Abnormal LFTs: Status: Acute <ELSA Miller Last Filed: 04/25/25 08:01> Assessment and Plan: HIDA scan shows normal hepatic uptake but no excretion from liver consistent with CBD obstruction. Bili up this morning. GI feels no ERCP indicated and HIDA more suggestive of acute cholecystitis. Cont NPO, IVF, IV zosyn. Awaiting cardiology consult for perioperative risk assessment. Cont to hold plavix. Will add onto OR schedule for laparoscopic cholecystectomy, possible open for today tenatively pending cardiology clearance. <Palak Uribe PA-C - Last Filed: 04/25/25 08:01> HIDA scan shows normal hepatic uptake but no excretion from liver consistent with CBD obstruction. Bili up this morning. GI feels no ERCP indicated and HIDA more suggestive of acute cholecystitis. Cont NPO, IVF, IV zosyn. Awaiting cardiology consult for perioperative risk assessment. Cont to hold plavix. Will add onto OR schedule for laparoscopic cholecystectomy, possible open for today tenatively pending cardiology clearance. Patient seen and examined. Overall he feels improved today. The results of the HIDA scan were reviewed with the patient which indicate acute cholecystitis with nonvisualization of the gallbladder. Patient will need a laparoscopic or possible open cholecystectomy. We are awaiting cardiology evaluation but have tentatively placed him on the OR schedule for today. I reviewed the procedure, risks, and alternatives including the strong possibility of an open cholecystectomy in detail with the patient. He consents to the laparoscopic or possible open cholecystectomy. <Blayne Faustin MD - Last Filed: 04/25/25 08:20> Time Spent With Patient Time: Total time managing care of this patient today ____ minutes. <Palak Uribe PA-C - Last Filed: 04/25/25 08:01> Quality Stroke Does the patient have a stroke diagnosis?: No <ELSA Miller Last Filed: 04/25/25 08:01> VTE Prior VTE?: No <Palak Uribe PA-C - Last Filed: 04/25/25 08:01> VTE Risk Level:: Surgical - moderate <ELSA Miller Last Filed: 04/25/25 08:01> VTE Device Contraindication: N/A - Device Ordered <Palak Uribe PA-C - Last Filed: 04/25/25 08:01> VTE Drug Contraindication: Treatment Not Indicated <Palak Uribe PA-C - Last Filed: 04/25/25 08:01>
[2025-04-25 08:29] LABS: SLIDE REVIEW VERIFIED
[2025-04-25 09:02] LABS: Anion Gap 13 (12-20); Blood Urea Nitrogen 10 mg/dL (9-16); Calcium 8.4 mg/dL (8.4-10.2); Carbon Dioxide 23 mmol/L (22-29); Chloride 110 mmol/L (96-108); Creatinine Clr Calc Pharmacy 71.1; Estimated Glomerular Filt Rate > 60; Glucose Random 142 mg/dL (60-115); Sodium 143 mmol/L (135-145)
[2025-04-25] MEDS: Metoprolol Tartrate 50 MG TABLET PO (09:15)
--- NOTE | 2025-04-25 09:15 | PM.CNCAR ---
History of Present Illness History of Present Illness Date of Service: 04/25/25 Chief complaint: Acute Cholecystitis Narrative: This is a cardiology consultation regarding preoperative risk stratification for cholecystectomy. Previous records reviewed. He has a history of coronary artery disease and coronary artery bypass surgery. He also has a severe cardiomyopathy with an ejection fraction in the 20% range. Has an ICD in place. However, it seems that he has generally been quite stable over the last several years. No clear complaints like angina or shortness of breath or in fact anything cardiac sounding. He states he can be physically quite active with no limitations whatsoever. Currently, admitted for diagnosis of acute cholecystitis and awaiting surgery. Review of Systems Review of Systems: Yes all other systems are reviewed and are negative Constitutional: Constitutional: Reports as per HPI and Reports no additional constitutional complaints Eyes: Eyes: Reports as per HPI and Denies no additional eye complaints ENT: Denies system reviewed and no additional complaints, except as documented and Reports as per HPI Cardiovascular: Cardiovascular: Reports as per HPI, Reports no additional cardiovascular complaints, Denies acrocyanosis, Denies cool extremities, Denies chest pain, Denies leg edema, Denies lightheadedness, Denies palpitations and Denies dyspnea Respiratory: Respiratory: Reports as per HPI, Denies no additional respiratory complaints and Denies dyspnea Gastrointestinal: Gastrointestinal: Reports as per HPI and Denies no additional gastrointestinal complaints Genitourinary: Genitourinary: Reports no additional male genitourinary complaints and Reports as per HPI Musculoskeletal: Musculoskeletal: Reports no additional musculoskeletal complaints and Reports as per HPI Integumentary/Breasts: Skin/Breast: Reports system reviewed and no additional complaints, except as docu Neurologic: Reports system reviewed and no additional complaints, except as documented and Reports as per HPI Psychiatric: Psychiatric: Reports no additional psychiatric complaints and Reports as per HPI Endocrine: Endocrine: Reports no additional endocrine complaints, Reports as per HPI and Denies palpitations Hematologic/Lymphatic: Hematologic/Lymphatic: Reports no additional hematologic/lymphatic complaints and Reports as per HPI Allergic/Immunologic: Allergic/Immunologic: Reports no additional allergic/immunologic complaints and Reports as per HPI [facility] Past Medical History Medical History (Updated 04/25/25 @ 09:19 by Negro Conklin MD) Non-insulin dependent type 2 diabetes mellitus CAD (coronary artery disease) Family History Pertinent family history: No pertinent family history Surgical History Surgical History (Updated 04/25/25 @ 09:19 by Negro Conklin MD) AICD present, double chamber Hx of CABG Social History Social History Household Members: None Household Members Other:: self, daughter next door Housing: Homeless Do you presently have visiting nurse or other home services: No Patient Tobacco Use Status: Former Tobacco user Smoked in Last 30 Days: No Use of substances other than those prescribed or required for medical reasons: No Currently Displaying Signs/Symptoms of Drug Intoxication Withdrawal: No Have you been hit, kicked, punched, or otherwise hurt by someone within the past year? If so, by whom?: No Do you feel safe in your current relationship?: No Current Relationship Is there a partner from a previous relationship who is making you feel unsafe now?: No Are you made to feel afraid or neglected: No Advance Directives: No Advance Directives Information Provided: No Do you have a plan to hurt others: No Plan Recently lost weight without trying: No Eating poorly because of decreased appetite: Yes Nutrition Risks: Dental problems Meds Allergies Allergy/AdvReac Type Severity Reaction Status Date / Time No Known Allergies Allergy Verified 04/23/25 15:35 Active Medications: Current Medications Acetaminophen (Acetaminophen 325 Mg Tablet) 650 mg PO Q6H PRN PRN Reason: Pain, Mild 1-3,fever,headache Calcium Carbonate (Calcium Carbonate 750 Mg Tab.Chew) 750 mg PO Q4H PRN PRN Reason: Heartburn Dextrose (Dextrose 50 % 25 Gm/50 Ml Syringe) 25 gm IVPUSH Q15M PRN; Protocol PRN Reason: per Hypoglycemia Standing Ord. Last Admin: 04/24/25 16:29 Dose: 25 gm Glucose (Glucose Gel 15 Gm Gel..Gram.) 15 gm PO Q15M PRN; Protocol PRN Reason: per Hypoglycemia Standing Ord. Piperacillin Sod/Tazobactam (Sod 3.375 gm/ Sodium Chloride) 50 mls @ 100 mls/hr IV Q6H [facility] Last Infusion: 04/25/25 04:32 Dose: Infused Dextrose/Lactated Ringer's (D5lr) 1,000 mls @ 100 mls/hr IVCONT .Q10H [facility] Last Infusion: 04/25/25 08:59 Dose: Infused Insulin Human Lispro (Insulin Lispro 100 Unit/Ml 3 Ml Vial) 0 unit SUBCUT QIDACHS [facility]; Protocol Last Admin: 04/25/25 07:42 Dose: Not Given Magnesium Hydroxide (Milk Of Magnesia 30 Ml Oral.Susp) 30 ml PO DAILY PRN PRN Reason: Constipation Melatonin (Melatonin 3 Mg Tablet) 6 mg PO BEDTIME PRN PRN Reason: Insomnia Metoprolol Tartrate (Metoprolol Tartrate 50 Mg Tablet) 50 mg PO DAILY [facility]; Protocol Last Admin: 04/24/25 08:57 Dose: 50 mg Morphine Sulfate (Morphine Sulfate 4 Mg/Ml Cartridge) 3 mg IVPUSH Q3H PRN; Protocol PRN Reason: Pain, Severe (Pain Scale 7-10) Ondansetron HCl (Ondansetron Hcl 4 Mg/2 Ml Vial) 4 mg IVPUSH Q8H PRN PRN Reason: Nausea and Vomiting Oxycodone HCl (Oxycodone Hcl Immed Release 5 Mg Tablet) 5 mg PO Q4H PRN PRN Reason: Pain, Moderate(Pain Scale 4-6) Sodium Chloride (0.9 % Sodium Chloride Flush 3 Ml Syringe) 3 ml [facility] Last Admin: 04/24/25 22:04 Dose: 3 ml Home Medications ?Medication ?Instructions ?Recorded ?Confirmed ?Last Taken ?Type clopidogrel 75 mg tablet 75 mg PO DAILY 04/23/25 04/23/25 04/23/25 History dapagliflozin propanediol 10 mg 10 mg PO DAILY 04/23/25 04/23/25 04/23/25 History tablet (Farxiga) glipizide 10 mg tablet 10 mg PO BID 04/23/25 04/23/25 04/23/25 History loperamide 2 mg capsule 2 mg PO Q4H PRN Loose Stool 04/23/25 04/23/25 Unknown History metoprolol tartrate 50 mg tablet 50 mg PO DAILY 04/23/25 04/23/25 04/23/25 History rosuvastatin 40 mg tablet 40 mg PO BEDTIME 04/23/25 04/23/25 04/22/25 History semaglutide 14 mg tablet (Rybelsus) 14 mg PO DAILY 04/23/25 04/23/25 04/23/25 History spironolactone 25 mg tablet 25 mg PO DAILY 04/23/25 04/23/25 04/23/25 History Physical Exam Vital Signs: Vital Signs: Last Vital Signs Temp 97.7 F 04/25/25 07:50 Pulse 66 04/25/25 07:50 Resp 14 04/25/25 07:50 BP 143/68 H 04/25/25 07:50 Pulse Ox 96 04/25/25 07:50 O2 Del Method Room Air 04/25/25 07:50 BMI result Body Mass Index 24.1 Const: General: comfortable and no acute distress Orientation/consciousness: patient oriented x3 HEENT: Other: Unremarkable Head: Yes normal to inspection Neck: Neck: Yes normal visual inspection Chest: Chest palpation & inspection: normal inspection of the chest Resp: Auscultation: clear to auscultation bilaterally Cardio: Palpation: normal PMI Heart sounds: S1 normal heart sound present, S2 normal heart sound present, no gallops, no murmurs and no rubs GI: Palpation (GI): Soft to palpation Back/Spine/Pelvis: Other: unremarkable Skin: General skin exam: no rashes or lesions noted Neuro: General: patient oriented x3 Extrem: General: Yes normal to inspection Psych: Mental Status: mental status grossly normal Objective Labs and Meds 04/25/25 05:32 04/25/25 05:32 Lab results: Laboratory Results - last 24 hr 04/24/25 04/24/25 04/24/25 11:51 12:39 16:03 WBC RBC Hgb Hct MCV MCH MCHC RDW Plt Count MPV Immature Gran % (Auto) Neut % (Auto) Lymph % (Auto) [place] % (Auto) Eos % (Auto) Baso % (Auto) Lymph # (Auto) [place] # (Auto) Eos # (Auto) Baso # (Auto) Abs Immat Gran (auto) Absolute Neuts (auto) Absolute Nucleated RBC Nucleated RBC % (auto) Smear Tech's Comments Sodium Potassium Chloride Carbon Dioxide Anion Gap BUN Creatinine Estim Creat Clear Calc Estimated GFR POC Glucose 66 159 H 66 Random Glucose Calcium Total Bilirubin Direct Bilirubin AST ALT Alkaline Phosphatase Total Protein Albumin 04/24/25 04/24/25 04/25/25 17:17 19:21 05:32 WBC 7.6 RBC 4.63 Hgb 13.7 L Hct 38.7 L MCV 83.6 MCH 29.6 MCHC 35.4 RDW 13.8 Plt Count 91 L MPV 10.5 Immature Gran % (Auto) 0.3 Neut % (Auto) 83.7 H Lymph % (Auto) 8.6 L [place] % (Auto) 6.0 Eos % (Auto) 1.3 Baso % (Auto) 0.1 Lymph # (Auto) 0.7 L [place] # (Auto) 0.5 Eos # (Auto) 0.1 Baso # (Auto) 0.0 Abs Immat Gran (auto) 0.02 Absolute Neuts (auto) 6.3 Absolute Nucleated RBC 0.000 Nucleated RBC % (auto) 0.0 Smear Tech's Comments VERIFIED Sodium 143 Potassium 3.0 L Chloride 110 H Carbon Dioxide 23 Anion Gap 13 BUN 10 Creatinine 0.80 Estim Creat Clear Calc 71.1 Estimated GFR > 60 POC Glucose 190 H 138 H Random Glucose 142 H Calcium 8.4 Total Bilirubin 4.1 H Direct Bilirubin 3.0 H AST 81 H ALT 86 H Alkaline Phosphatase 148 H Total Protein 5.2 L Albumin 3.0 L 04/25/25 07:28 WBC RBC Hgb Hct MCV MCH MCHC RDW Plt Count MPV Immature Gran % (Auto) Neut % (Auto) Lymph % (Auto) [place] % (Auto) Eos % (Auto) Baso % (Auto) Lymph # (Auto) [place] # (Auto) Eos # (Auto) Baso # (Auto) Abs Immat Gran (auto) Absolute Neuts (auto) Absolute Nucleated RBC Nucleated RBC % (auto) Smear Tech's Comments Sodium Potassium Chloride Carbon Dioxide Anion Gap BUN Creatinine Estim Creat Clear Calc Estimated GFR POC Glucose 156 H Random Glucose Calcium Total Bilirubin Direct Bilirubin AST ALT Alkaline Phosphatase Total Protein Albumin ECG Interpretation: EKG shows underlying sinus rhythm at 72/Min; old anteroseptal infarct; inferior infarct; PVCs. Imaging Radiologist's impression: Impressions Hepatobiliary Scan Nuclear Medicine 04/24/25 08:14 IMPRESSION: Findings consistent with acute cholecystitis as described. Electronically signed by: Prosper Slater MD 04/24/2025 02:39 PM EDT Assessment and Plan (1) Preoperative cardiovascular examination: Status: Acute (2) Atherosclerotic cardiovascular disease: Status: Acute (3) Status post coronary artery bypass graft: Status: Acute (4) Ischemic cardiomyopathy: Status: Acute (5) ICD (implantable cardioverter-defibrillator) in place: Status: Acute Plan History of CAD, CABG, atretic STARR per notes, ischemic cardiomyopathy, ICD placement (medtronic, dual chamber, per notes). Echocardiogram from November of 2024 with LVEF of 20-25%. Anterior akinesis. Mild mitral/tricuspid regurgitation. He seems to have good functional status without any major limitations and no recent acute cardiac issues. May proceed with planned surgery. Intermediate cardiac risk. Avoid excessive IV fluids as it may precipitate congestive heart failure. Otherwise, may proceed. Procedures Date of Service Date of Service: 04/25/25
[2025-04-25] MEDS: Dextrose 5 % and Lactated Ring 1,000 ML 100 ML IVCONT (09:23)
[2025-04-25] MEDS: 0.9 % Sodium Chloride Flush 3 ML SYRINGE IVFLUSH ×2 (09:27→22:33)
--- NOTE | 2025-04-25 10:25 | MHC.CM.PN ---
pt lives alone is indepedent has own ride home dc plan home n/s
[2025-04-25 11:09] LABS: Glucose, Whole Blood 139 mg/dL (60-115)
--- NOTE | 2025-04-25 11:15 | HO.PM.IMPN ---
Subjective Subjective Date of Service: 04/25/25 Interval History: c/o RUQ pain, nausea no chest pain or dyspnea at rest or exertion no dysuria Review of Systems Review of Systems: Yes all other systems are reviewed and are negative Physical Exam Vital Signs: Vital Signs: Last Vital Signs Temp 97.7 F 04/25/25 07:50 Pulse 66 04/25/25 07:50 Resp 14 04/25/25 07:50 BP 132/68 04/25/25 09:15 Pulse Ox 96 04/25/25 07:50 O2 Del Method Room Air 04/25/25 07:50 BMI result Body Mass Index 24.1 Gen: in no acute distress HEENT: sclera anicteric, moist mucus membranes Neck: supple Lungs: clear to auscultation bilaterally Heart: regular rate and rhythm, no murmurs Abd: soft, RUQ tender, non-distended Ext: no edema Skin: warm/well-perfused Neuro: alert and oriented x3, no focal findings Psych: appropriate affect Objective Data Active Medications Acetaminophen (Acetaminophen 325 Mg Tablet) 650 mg PO Q6H PRN PRN Reason: Pain, Mild 1-3,fever,headache Calcium Carbonate (Calcium Carbonate 750 Mg Tab.Chew) 750 mg PO Q4H PRN PRN Reason: Heartburn Dextrose (Dextrose 50 % 25 Gm/50 Ml Syringe) 25 gm IVPUSH Q15M PRN; Protocol PRN Reason: per Hypoglycemia Standing Ord. Last Admin: 04/24/25 16:29 Dose: 25 gm Documented By: MARTINA Glucose (Glucose Gel 15 Gm Gel..Gram.) 15 gm PO Q15M PRN; Protocol PRN Reason: per Hypoglycemia Standing Ord. Piperacillin Sod/Tazobactam (Sod 3.375 gm/ Sodium Chloride) 50 mls @ 100 mls/hr IV Q6H [facility] Last Infusion: 04/25/25 10:26 Dose: Infused Documented By: MARTINA Dextrose/Lactated Ringer's (D5lr) 1,000 mls @ 100 mls/hr IVCONT .Q10H [facility] Last Admin: 04/25/25 09:23 Dose: 100 mls/hr Documented By: MARTINA Insulin Human Lispro (Insulin Lispro 100 Unit/Ml 3 Ml Vial) 0 unit SUBCUT QIDACHS [facility]; Protocol Last Admin: 04/25/25 07:42 Dose: Not Given Documented By: MARTINA Non-Admin Reason: NPO Magnesium Hydroxide (Milk Of Magnesia 30 Ml Oral.Susp) 30 ml PO DAILY PRN PRN Reason: Constipation Melatonin (Melatonin 3 Mg Tablet) 6 mg PO BEDTIME PRN PRN Reason: Insomnia Metoprolol Tartrate (Metoprolol Tartrate 50 Mg Tablet) 50 mg PO DAILY [facility]; Protocol Last Admin: 04/25/25 09:15 Dose: 50 mg Documented By: MARTINA Morphine Sulfate (Morphine Sulfate 4 Mg/Ml Cartridge) 3 mg IVPUSH Q3H PRN; Protocol PRN Reason: Pain, Severe (Pain Scale 7-10) Ondansetron HCl (Ondansetron Hcl 4 Mg/2 Ml Vial) 4 mg IVPUSH Q8H PRN PRN Reason: Nausea and Vomiting Oxycodone HCl (Oxycodone Hcl Immed Release 5 Mg Tablet) 5 mg PO Q4H PRN PRN Reason: Pain, Moderate(Pain Scale 4-6) Sodium Chloride (0.9 % Sodium Chloride Flush 3 Ml Syringe) 3 ml IVFLUSH QSHIFT [facility] Last Admin: 04/25/25 09:27 Dose: 3 ml Documented By: MARTINA Labs 04/25/25 05:32 04/25/25 05:32 Labs: Laboratory Results - last 24 hr 04/24/25 04/24/25 04/24/25 11:51 12:39 16:03 MCV MCH MCHC RDW Plt Count MPV Immature Gran % (Auto) Neut % (Auto) Lymph % (Auto) [place] % (Auto) Eos % (Auto) Baso % (Auto) Lymph # (Auto) [place] # (Auto) Eos # (Auto) Baso # (Auto) Abs Immat Gran (auto) Absolute Neuts (auto) Absolute Nucleated RBC Nucleated RBC % (auto) Smear Tech's Comments Anion Gap Estim Creat Clear Calc Estimated GFR POC Glucose 66 159 H 66 Random Glucose Calcium Total Bilirubin Direct Bilirubin AST ALT Alkaline Phosphatase Total Protein Albumin 04/24/25 04/24/25 04/25/25 17:17 19:21 05:32 MCV 83.6 MCH 29.6 MCHC 35.4 RDW 13.8 Plt Count 91 L MPV 10.5 Immature Gran % (Auto) 0.3 Neut % (Auto) 83.7 H Lymph % (Auto) 8.6 L [place] % (Auto) 6.0 Eos % (Auto) 1.3 Baso % (Auto) 0.1 Lymph # (Auto) 0.7 L [place] # (Auto) 0.5 Eos # (Auto) 0.1 Baso # (Auto) 0.0 Abs Immat Gran (auto) 0.02 Absolute Neuts (auto) 6.3 Absolute Nucleated RBC 0.000 Nucleated RBC % (auto) 0.0 Smear Tech's Comments VERIFIED Anion Gap 13 Estim Creat Clear Calc 71.1 Estimated GFR > 60 POC Glucose 190 H 138 H Random Glucose 142 H Calcium 8.4 Total Bilirubin 4.1 H Direct Bilirubin 3.0 H AST 81 H ALT 86 H Alkaline Phosphatase 148 H Total Protein 5.2 L Albumin 3.0 L 04/25/25 04/25/25 07:28 11:02 MCV MCH MCHC RDW Plt Count MPV Immature Gran % (Auto) Neut % (Auto) Lymph % (Auto) [place] % (Auto) Eos % (Auto) Baso % (Auto) Lymph # (Auto) [place] # (Auto) Eos # (Auto) Baso # (Auto) Abs Immat Gran (auto) Absolute Neuts (auto) Absolute Nucleated RBC Nucleated RBC % (auto) Smear Tech's Comments Anion Gap Estim Creat Clear Calc Estimated GFR POC Glucose 156 H 139 H Random Glucose Calcium Total Bilirubin Direct Bilirubin AST ALT Alkaline Phosphatase Total Protein Albumin Microbiology Microbiology Results: Microbiology 04/23/25 16:04 Blood Culture - Preliminary Blood - Venous Gram negative aaliyah 04/23/25 16:04 Blood Culture - Preliminary Blood - Venous No growth after 24 hours. 04/23/25 21:04 Urine Culture - Preliminary Urine clean catch - Clean Catch Midstream Culture too young to evaluate. Assessment and Plan (1) Acute cholecystitis: Status: Acute Assessment and Plan: d3 for 84yo M with CAD s/p 5v CABG 2002, [place] 2003, AICD, ischemic cardiomyopathy [LVEF 20-25% Nov 2024], HTN, and DM2, on Gen Surg service for acute cholecystitis complicated by bacteremia; medicine consult for managemenet of comorbid conditions CAD ischemic cardiomyopathy HTN - intermediate-risk per Cardiology, good functional status, avoid fluid overload - resume statin + clopidogrel + spironolactone postoperatively - continue metoprolol tartrate acute cholecystitis Gram-negative baceteremia - 6/4- piperacillin-tazobactam, repeat BCx postoperatively to ensure clearance, follow speciation + susceptibilities, will likely need 14+d of ABX therapy but hopefully can transition to PO hypoK - replete IV, recheck level in AM DM2 with hypoglycemia - hold dapafliglozin, glipizide, and semaglutide - correction-dose lispro if needed VTE ppx - enoxaparin postoperatively Total time managing care of this patient today: 45 minutes. Quality Stroke Does the patient have a stroke diagnosis?: No VTE Prior VTE?: No VTE Risk Level:: Surgical - moderate VTE Device Contraindication: N/A - Device Ordered VTE Drug Contraindication: Treatment Not Indicated
[2025-04-25] MEDS: Potassium Chloride/H20 10 MEQ/100 ML PIGGYBACK 100 MEQ IV ×4 (12:01→16:22)
--- NOTE | 2025-04-25 13:36 | HO.ANESPROP2 ---
HPI - Anesthesia Eval Consult details Narrative: for lap. cholecystectomy PMFSH Active Problems Active Problems: All Active Problems Ischemic cardiomyopathy (Acute) ICD (implantable cardioverter-defibrillator) in place (Acute) Status post coronary artery bypass graft (Acute) Atherosclerotic cardiovascular disease (Acute) Preoperative cardiovascular examination (Acute) Acute cholecystitis (Acute) Abnormal LFTs (Acute) Hypokalemia (Acute) Vomiting (Acute) Past Medical History Medical History Non-insulin dependent type 2 diabetes mellitus CAD (coronary artery disease) Narrative: Per cardiology consult: LVEF of 20-25%. Anterior akinesis. Mild mitral/tricuspid regurgitation. Seems to have good functional status without any major limitations and no recent acute cardiac issues. Family History Family history of problems with anesthesia: No Surgical History Surgical History S/P laparoscopic cholecystectomy (04/25/25) AICD present, double chamber Hx of CABG History of Problems with Anesthesia: No Social History Social History Household Members: None Household Members Other:: self, daughter next door Housing: Homeless Do you presently have visiting nurse or other home services: No Patient Tobacco Use Status: Former Tobacco user service: No Meds Allergies Allergy/AdvReac Type Severity Reaction Status Date / Time No Known Allergies Allergy Verified 05/01/25 12:50 Active Medications: Current Medications Acetaminophen (Acetaminophen 325 Mg Tablet) 650 mg PO Q6H PRN PRN Reason: Pain, Mild 1-3,fever,headache Calcium Carbonate (Calcium Carbonate 750 Mg Tab.Chew) 750 mg PO Q4H PRN PRN Reason: Heartburn Dextrose (Dextrose 50 % 25 Gm/50 Ml Syringe) 25 gm IVPUSH Q15M PRN; Protocol PRN Reason: per Hypoglycemia Standing Ord. Last Admin: 04/24/25 16:29 Dose: 25 gm Glucose (Glucose Gel 15 Gm Gel..Gram.) 15 gm PO Q15M PRN; Protocol PRN Reason: per Hypoglycemia Standing Ord. Piperacillin Sod/Tazobactam (Sod 3.375 gm/ Sodium Chloride) 50 mls @ 100 mls/hr IV Q6H KIRSTEN Last Infusion: 04/25/25 10:26 Dose: Infused Potassium Chloride (Potassium Chloride/H20) 10 meq in 100 mls @ 100 mls/hr IV Q1H [facility] Stop: 04/25/25 15:29 Last Admin: 04/25/25 13:25 Dose: 100 mls/hr Insulin Human Lispro (Insulin Lispro 100 Unit/Ml 3 Ml Vial) 0 unit SUBCUT QIDACHS [facility]; Protocol Last Admin: 04/25/25 12:32 Dose: Not Given Magnesium Hydroxide (Milk Of Magnesia 30 Ml Oral.Susp) 30 ml PO DAILY PRN PRN Reason: Constipation Melatonin (Melatonin 3 Mg Tablet) 6 mg PO BEDTIME PRN PRN Reason: Insomnia Metoprolol Tartrate (Metoprolol Tartrate 50 Mg Tablet) 50 mg PO DAILY [facility]; Protocol Last Admin: 04/25/25 09:15 Dose: 50 mg Morphine Sulfate (Morphine Sulfate 4 Mg/Ml Cartridge) 3 mg IVPUSH Q3H PRN; Protocol PRN Reason: Pain, Severe (Pain Scale 7-10) Ondansetron HCl (Ondansetron Hcl 4 Mg/2 Ml Vial) 4 mg IVPUSH Q8H PRN PRN Reason: Nausea and Vomiting Oxycodone HCl (Oxycodone Hcl Immed Release 5 Mg Tablet) 5 mg PO Q4H PRN PRN Reason: Pain, Moderate(Pain Scale 4-6) Sodium Chloride (0.9 % Sodium Chloride Flush 3 Ml Syringe) [facility] Last Admin: 04/25/25 09:27 Dose: 3 ml Home Medications ?Medication ?Instructions ?Recorded ?Confirmed ?Last Taken ?Type clopidogrel 75 mg tablet 75 mg PO DAILY 04/23/25 04/23/25 04/23/25 History dapagliflozin propanediol 10 mg 10 mg PO DAILY 04/23/25 04/23/25 04/23/25 History tablet (Farxiga) glipizide 10 mg tablet 10 mg PO BID 04/23/25 04/23/25 04/23/25 History loperamide 2 mg capsule 2 mg PO Q4H PRN Loose Stool 04/23/25 04/23/25 Unknown History metoprolol tartrate 50 mg tablet 50 mg PO DAILY 04/23/25 04/23/25 04/23/25 History rosuvastatin 40 mg tablet 40 mg PO BEDTIME 04/23/25 04/23/2525 History semaglutide 14 mg tablet (Rybelsus) 14 mg PO DAILY 04/23/25 04/23/25 04/23/25 History spironolactone 25 mg tablet 25 mg PO DAILY 04/23/25 04/23/25 04/23/25 History Exam Height,Weight and Vital Signs: Height 5 ft 9 in Weight 74 kg Last Vital Signs Temp 97.3 F 04/25/25 11:20 Pulse 62 04/25/25 11:20 Resp 20 04/25/25 11:20 BP 136/67 04/25/25 11:20 Pulse Ox 96 04/25/25 11:20 O2 Del Method Room Air 04/25/25 11:20 Pertinent Lab Results Pertinent Lab Results: Laboratory Tests 04/23/25 04/23/25 04/23/25 16:04 18:27 19:19 WBC 14.0 H RBC 5.13 Hgb 15.1 o Hct 42.2 MCV 82.3 MCH 29.4 MCHC 35.8 RDW 13.3 Plt Count 116 L MPV 10.0 Immature Gran % (Auto) 0.4 Neut % (Auto) 88.7 H Lymph % (Auto) 3.0 L [place] % (Auto) 7.7 Eos % (Auto) 0.1 Baso % (Auto) 0.1 Lymph # (Auto) 0.4 L [place] # (Auto) 1.1 Eos # (Auto) 0.0 Baso # (Auto) 0.0 Abs Immat Gran (auto) 0.05 H Absolute Neuts (auto) 12.4 H Absolute Nucleated RBC 0.000 Nucleated RBC % (auto) 0.0 Smear Tech's Comments Sodium 138 Potassium 2.6 L* Chloride 103 Carbon Dioxide 25 Anion Gap 13 BUN 16 Creatinine 1.18 Estim Creat Clear Calc 48.2 Estimated GFR 59 POC Glucose Random Glucose 184 H Lactic Acid 2.2 H* Lactic Acid F/U @ 2Hr 1.5 Calcium 9.0 Magnesium 1.4 L* Total Bilirubin 3.3 H Direct Bilirubin 2.3 H AST 135 H ALT 70 H Alkaline Phosphatase 125 H C-Reactive Protein 0.61 H Total Protein 6.4 L Albumin 4.0 Lipase 27 Urine Color Dark Yellow Urine Appearance Clear Urine pH 5.5 Ur Specific [place] 1.020 Urine Protein 30 (1+) H Urine Glucose (UA) >=1000 H Urine Ketones Trace Urine Blood Trace H Urine Nitrite Negative Ur Leukocyte Esterase Small (1+) H Urine RBC 0-2 Urine WBC 21-50 H Ur Squamous Epith Cells 6-10 Urine Bacteria 1+ Hyaline Casts 3-5 04/24/25 04/24/25 04/24/25 04:41 07:15 11:51 WBC 11.9 H RBC 4.80 Hgb 14.1 Hct 39.8 L MCV 82.9 MCH 29.4 MCHC 35.4 RDW 13.5 Plt Count 97 L MPV 10.6 Immature Gran % (Auto) 0.5 H Neut % (Auto) 84.5 H Lymph % (Auto) 6.3 L [place] % (Auto) 7.1 Eos % (Auto) 1.3 Baso % (Auto) 0.3 Lymph # (Auto) 0.8 L [place] # (Auto) 0.8 Eos # (Auto) 0.2 Baso # (Auto) 0.0 Abs Immat Gran (auto) 0.06 H Absolute Neuts (auto) 10.0 H Absolute Nucleated RBC 0.000 Nucleated RBC % (auto) 0.0 Smear Tech's Comments Sodium 141 Potassium 3.0 L Chloride 111 H Carbon Dioxide 21 L Anion Gap 12 BUN 11 Creatinine 0.74 Estim Creat Clear Calc 76.9 Estimated GFR > 60 POC Glucose 89 66 Random Glucose 101 Lactic Acid Lactic Acid F/U @ 2Hr Calcium 8.3 L D Magnesium 1.9 Total Bilirubin 3.5 H Direct Bilirubin AST 121 H ALT 91 H Alkaline Phosphatase 114 C-Reactive Protein Total Protein 5.4 L Albumin 3.2 L Lipase Urine Color Urine Appearance Urine pH Ur Specific [place] Urine Protein Urine Glucose (UA) Urine Ketones Urine Blood Urine Nitrite Ur Leukocyte Esterase Urine RBC Urine WBC Ur Squamous Epith Cells Urine Bacteria Hyaline Casts 04/24/25 04/24/25 04/24/25 12:39 16:03 17:17 WBC RBC Hgb Hct MCV MCH MCHC RDW Plt Count MPV Immature Gran % (Auto) Neut % (Auto) Lymph % (Auto) [place] % (Auto) Eos % (Auto) Baso % (Auto) Lymph # (Auto) [place] # (Auto) Eos # (Auto) Baso # (Auto) Abs Immat Gran (auto) Absolute Neuts (auto) Absolute Nucleated RBC Nucleated RBC % (auto) Smear Tech's Comments Sodium Potassium Chloride Carbon Dioxide Anion Gap BUN Creatinine Estim Creat Clear Calc Estimated GFR POC Glucose 159 H 66 190 H Random Glucose Lactic Acid Lactic Acid F/U @ 2Hr Calcium Magnesium Total Bilirubin Direct Bilirubin AST ALT Alkaline Phosphatase C-Reactive Protein Total Protein Albumin Lipase Urine Color Urine Appearance Urine pH Ur Specific [place] Urine Protein Urine Glucose (UA) Urine Ketones Urine Blood Urine Nitrite Ur Leukocyte Esterase Urine RBC Urine WBC Ur Squamous Epith Cells Urine Bacteria Hyaline Casts 04/24/25 04/25/25 04/25/25 19:21 05:32 07:28 WBC 7.6 RBC 4.63 Hgb 13.7 L Hct 38.7 L MCV 83.6 MCH 29.6 MCHC 35.4 RDW 13.8 Plt Count 91 L MPV 10.5 Immature Gran % (Auto) 0.3 Neut % (Auto) 83.7 H Lymph % (Auto) 8.6 L [place] % (Auto) 6.0 Eos % (Auto) 1.3 Baso % (Auto) 0.1 Lymph # (Auto) 0.7 L [place] # (Auto) 0.5 Eos # (Auto) 0.1 Baso # (Auto) 0.0 Abs Immat Gran (auto) 0.02 Absolute Neuts (auto) 6.3 Absolute Nucleated RBC 0.000 Nucleated RBC % (auto) 0.0 Smear Tech's Comments VERIFIED Sodium 143 Potassium 3.0 L Chloride 110 H Carbon Dioxide 23 Anion Gap 13 BUN 10 Creatinine 0.80 Estim Creat Clear Calc 71.1 Estimated GFR > 60 POC Glucose 138 H 156 H Random Glucose 142 H Lactic Acid Lactic Acid F/U @ 2Hr Calcium 8.4 Magnesium Total Bilirubin 4.1 H Direct Bilirubin 3.0 H AST 81 H ALT 86 H Alkaline Phosphatase 148 H C-Reactive Protein Total Protein 5.2 L Albumin 3.0 L Lipase Urine Color Urine Appearance Urine pH Ur Specific [place] Urine Protein Urine Glucose (UA) Urine Ketones Urine Blood Urine Nitrite Ur Leukocyte Esterase Urine RBC Urine WBC Ur Squamous Epith Cells Urine Bacteria Hyaline Casts 04/25/25 11:02 WBC RBC Hgb Hct MCV MCH MCHC RDW Plt Count MPV Immature Gran % (Auto) Neut % (Auto) Lymph % (Auto) [place] % (Auto) Eos % (Auto) Baso % (Auto) Lymph # (Auto) [place] # (Auto) Eos # (Auto) Baso # (Auto) Abs Immat Gran (auto) Absolute Neuts (auto) Absolute Nucleated RBC Nucleated RBC % (auto) Smear Tech's Comments Sodium Potassium Chloride Carbon Dioxide Anion Gap BUN Creatinine Estim Creat Clear Calc Estimated GFR POC Glucose 139 H Random Glucose Lactic Acid Lactic Acid F/U @ 2Hr Calcium Magnesium Total Bilirubin Direct Bilirubin AST ALT Alkaline Phosphatase C-Reactive Protein Total Protein Albumin Lipase Urine Color Urine Appearance Urine pH Ur Specific [place] Urine Protein Urine Glucose (UA) Urine Ketones Urine Blood Urine Nitrite Ur Leukocyte Esterase Urine RBC Urine WBC Ur Squamous Epith Cells Urine Bacteria Hyaline Casts Airway Mallampati Class: IV TM Dist: <=3cm Neck ROM: Full Heart: See above Lungs: OK Assessment and Plan Assessment Anesthesia Assessment: Anesthesia Plan Discussed and Chart Reviewed Final Anesthetic Review Family History of Problems with Anesthesia: No History of Problems with Anesthesia: No NPO: Yes ASA Class: IV Final Preanesthetic Review: No Changes in Pt Med Stat, Consent Obtained/Reviewed and Anes Risks/Benef Reviewed Patient Risk: High Procedure Risk: Intermediate Anesthetic Plan Anesthetic Plan: GA and Agree w/ Assess. and Plan Disposition: Standard PACU
--- NOTE | 2025-04-25 15:45 | W.PM.OPN ---
Operative Note Operative Note Date of Service: 04/25/25 Narrative: Preoperative diagnosis: Acute cholecystitis, cholelithiasis, possible choledocholithiasis Postoperative diagnosis: Acute cholecystitis, cholelithiasis, no choledocholithiasis Procedure: Laparoscopic cholecystectomy, intraoperative cholangiogram Surgeon: Blayne Faustin MD Advanced Nursing Professor: ELISA Miller, Parmjit Byrnes PA-C, JOSH Diaz Anesthesia: General endotracheal Indications for procedure: 84-year-old male patient presenting with complaints of nausea, vomiting, diarrhea and mild abdominal pain found to have a CT with thickened gallbladder wall and ultrasound with evidence of acute cholecystitis and biliary sludge. Common bile duct was noted to be normal. Liver function tests however were elevated. Workup with HIDA scan revealed delayed emptying of the liver however contrast was noted into the small bowel after approximately 4 hours. No filling of the gallbladder was noted. Findings were felt to be suggestive of acute cholecystitis. He presents now for laparoscopic or possible open cholecystectomy, intraoperative cholangiogram. Operative findings: Acutely inflamed gallbladder with evidence of chronic cholecystitis as well. Gallbladder was markedly distended. Intraoperative cholangiogram revealed filling of the small bowel without obstruction of the distal common bile duct. Specimen: gallbladder Estimated blood loss: 5 mL Complications: None Procedure details: Patient was brought to the OR and placed in a supine position. After administering general anesthesia the patient's abdomen was prepped with ChloraPrep and draped in a sterile fashion. A surgical time-out was called the consent confirmed. Patient received preoperative antibiotics and Venodyne boots were in place. Local anesthesia consisting of 0.5% Sensorcaine without epinephrine was infiltrated in a periumbilical region. A 5 mm incision was made above the umbilicus in a transverse fashion. The Veress needle was then inserted while elevating abdominal cavity with towel clips. After positive drop test the abdomen was insufflated to a pressure of 15 mm of mercury. The Veress needle was then removed and a 5 mm trocar inserted. The camera was inserted in the abdomen explored. A 12 mm trocar was then placed in the epigastrium. Two 5 mm trocars placed in the right upper quadrant by the marketing operations assistant. The patient was placed in reverse Trendelenburg positioning and rotated to the left. The gallbladder was grasped with the fundus and retracted cephalad by the marketing operations assistant. The infundibulum was then grasped and retracted away from the liver bed, also by the marketing operations assistant. The Dolphin dissected was then used by the surgeon to dissect the peritoneum off the infundibulum to reveal the junction with the cystic duct. Cystic artery was noted slightly medial and posterior to the cystic duct. After obtaining a critical view the cystic duct was clipped distally and a small opening made in the distal cystic duct. Cholangiogram was then inserted and a balloon inflated. Intraoperative cholangiogram was performed and contrast noted quickly into the duodenum. No evidence of filling defect was noted in the common duct. The catheter was removed and the cystic duct doubly clipped and divided. The cystic artery was then doubly clipped and divided. The gallbladder was then dissected off the liver bed using electrocautery with an L hook. Hemostasis was assured all times using the electrocautery. When the gallbladder is completely dissected off the liver bed was placed in an Endo-Catch bag and brought out through the epigastric incision. The gallbladder was sent to pathology for further examination. The abdomen was then re-examined. The liver bed was irrigated and suctioned dry. Surgicel was applied to the liver edge due to the patient's need for Plavix. CO2 was then evacuated and all trocars removed. Fascia was closed at the epigastric incision using a [id number] 0 Polysorb suture. Skin was closed in all incisions using a subcuticular 4 0 Polysorb suture by both the surgeon and marketing operations assistant. Sterile dressings consisting of Steri-Strips, 2 x 2 gauze, and Tegaderm were then applied. The patient tolerated the procedure well. Sponge instrument and needle counts reported as correct. The patient was transferred to PACU in stable condition.
[2025-04-25] MEDS: HYDROmorphone HCl 0.5 MG/0.5 ML SYRINGE IVPUSH (16:11)
[2025-04-25] MEDS: Acetaminophen 1,000 MG/100 ML PIGGYBACK 400 MG IV (16:16)
[2025-04-25 17:27] LABS: Glucose, Whole Blood 146 mg/dL (60-115)
[2025-04-25 20:33] LABS: Glucose, Whole Blood 212 mg/dL (60-115)
[2025-04-26 03:31] VITALS: BP 156/73; PULSE 63; RESP 18; TEMP 36.7; O2SAT 95
[2025-04-26] MEDS: Piperacillin Sodium/Tazobactam 3.375 GM in 0.9 % Sodium Chloride 50 ML IV (03:47)
[2025-04-26 07:24] VITALS: BP 134/66; PULSE 63; RESP 16; TEMP 36.5; O2SAT 93
[2025-04-26 07:37] LABS: Glucose, Whole Blood 175 mg/dL (60-115)
[2025-04-26] MEDS: 0.9 % Sodium Chloride Flush 3 ML SYRINGE IVFLUSH ×2 (07:54→20:56)
[2025-04-26] MEDS: Metoprolol Tartrate 50 MG TABLET PO (07:54)
[2025-04-26 07:55] LABS: Basophils Percent Auto 0.3 % (0-2); Eosinophils Absolute Auto 0.1 X10*3/uL (0.0-0.4); Eosinophils Percent Auto 0.9 % (0-4); Hematocrit 37.7 % (42.0-52.0); Hemoglobin 13.2 g/dl (14.0-18.0); Imm Gran Abs Auto 0.03 X10*3/uL (0.00-0.03); Imm Gran Pct Auto 0.4 % (0.0-0.4); Lymphocytes Percent Auto 13.2 % (20-40); MANUAL DIFF FLAG SCAN; Mean Corpuscular Hemoglobin 29.3 pg (27.0-33.0); Mean Corpuscular Volume 83.6 fL (80.0-98.0); Mean Platelet Volume 11.1 fL (9.4-12.4); Monocytes Absolute Auto 0.7 X10*3/uL (0.1-1.2); Monocytes Percent Auto 9.7 % (2-11); Neutrophils Absolute Auto 5.7 x10*3/uL (2.0-8.3); Neutrophils Percent Auto 75.5 % (45-73); Platelet Count 94 X10*3/uL (160-400); Red Cell Distribution Width 13.8 % (11.0-16.0); SCAN SMEAR FLAG 1; White Blood Count 7.5 X10*3/uL (4.8-10.8)
[2025-04-26 07:56] LABS: Red Blood Count 4.51 X10*6/uL (4.60-5.80)
[2025-04-26 08:08] LABS: Alanine Aminotransferase 85 U/L (0-40); Albumin Level 2.9 g/dL (3.5-5.0); Alkaline Phosphatase 200 U/L (39-117); Aspartate Amino Transferase 77 U/L (5-37); Bilirubin Total 3.4 mg/dL (0.0-1.0); Blood Urea Nitrogen 11 mg/dL (9-16); Creatinine Clr Calc Pharmacy 73.9; Estimated Glomerular Filt Rate > 60; Glucose Random 190 mg/dL (60-115); Total Protein 5.2 g/dL (6.5-8.0)
[2025-04-26 08:35] LABS: SLIDE REVIEW VERIFIED
[2025-04-26 08:43] LABS: Anion Gap 10 (12-20); Bilirubin Direct 2.5 mg/dL (0.0-0.5); Carbon Dioxide 25 mmol/L (22-29); Chloride 105 mmol/L (96-108); Sodium 137 mmol/L (135-145)
[2025-04-26 09:05] LABS: Potassium 2.9 mmol/L (3.3-5.1)
--- NOTE | 2025-04-26 09:34 | P.PNGS_ITS ---
Subjective Subjective Date of Service: 04/26/25 Interval history: Patient reports feeling much improved this morning with no abdominal pain, nausea or vomiting. He had a small amount yesterday and denied any increased pain with eating. Physical Exam 2 Vital Signs: Vital Signs: Last Vital Signs Temp 97.7 F 04/26/25 07:24 Pulse 63 04/26/25 07:24 Resp 16 04/26/25 07:24 BP 134/66 04/26/25 07:24 Pulse Ox 93 04/26/25 07:24 O2 Del Method Room Air 04/26/25 07:24 BMI result Body Mass Index 24.1 Const: General: comfortable Nutritional Appearance: well nourished O rientation/consciousness: patient oriented x3 Resp: Effort & Inspection: normal respiratory effort GI: Other: Abdominal dressings are clean and intact Inspection: Yes normal to inspection Palpation (GI): Soft to palpation, nontender, no guarding and not rigid Neuro: General: patient oriented x3 Extrem: General: No edema Objective Data Active Medications Acetaminophen (Acetaminophen 325 Mg Tablet) 650 mg PO Q6H PRN PRN Reason: Pain, Mild 1-3,fever,headache Calcium Carbonate (Calcium Carbonate 750 Mg Tab.Chew) 750 mg PO Q4H PRN PRN Reason: Heartburn Dextrose (Dextrose 50 % 25 Gm/50 Ml Syringe) 25 gm IVPUSH Q15M PRN; Protocol PRN Reason: per Hypoglycemia Standing Ord. Last Admin: 04/24/25 16:29 Dose: 25 gm Documented By: MARTINA Glucose (Glucose Gel 15 Gm Gel..Gram.) 15 gm PO Q15M PRN; Protocol PRN Reason: per Hypoglycemia Standing Ord. Potassium Chloride (Potassium Chloride/H20) 10 meq in 100 mls @ 100 mls/hr IV Q1H [facility] Stop: 04/26/25 13:29 Insulin Human Lispro (Insulin Lispro 100 Unit/Ml 3 Ml Vial) 0 unit SUBCUT QIDACHS [facility]; Protocol Last Admin: 04/26/25 07:54 Dose: Not Given Documented By: TRISH Non-Admin Reason: Patient Refused Magnesium Hydroxide (Milk Of Magnesia 30 Ml Oral.Susp) 30 ml PO DAILY PRN PRN Reason: Constipation Melatonin (Melatonin 3 Mg Tablet) 6 mg PO BEDTIME PRN PRN Reason: Insomnia Metoprolol Tartrate (Metoprolol Tartrate 50 Mg Tablet) 50 mg PO DAILY [facility]; Protocol Last Admin: 04/26/25 07:54 Dose: 50 mg Documented By: TRISH Morphine Sulfate (Morphine Sulfate 4 Mg/Ml Cartridge) 3 mg IVPUSH Q3H PRN; Protocol PRN Reason: Pain, Severe (Pain Scale 7-10) Naloxone HCl (Naloxone Hcl 0.4 Mg/Ml Vial) 0.04 mg IVPUSH Q5M PRN PRN Reason: Excessive sedation or RR < 8 Ondansetron HCl (Ondansetron Hcl 4 Mg/2 Ml Vial) 4 mg IVPUSH Q8H PRN PRN Reason: Nausea and Vomiting Oxycodone HCl (Oxycodone Hcl Immed Release 5 Mg Tablet) 5 mg PO Q4H PRN PRN Reason: Pain, Moderate(Pain Scale 4-6) Potassium Chloride (Potassium Chloride Er 20 Meq Tab.Er.Prt) 40 meq PO ONCE ONE Stop: 04/26/25 09:31 Sodium Chloride (0.9 % Sodium Chloride Flush 3 Ml Syringe) [facility] Last Admin: 04/26/25 07:54 Dose: 3 ml Documented By: TRISH Labs 04/26/25 06:48 04/26/25 06:47 Labs: Laboratory Results - last 24 hr 04/25/25 04/25/25 04/25/25 11:02 17:24 20:25 MCV MCH MCHC RDW Plt Count MPV Immature Gran % (Auto) Neut % (Auto) Lymph % (Auto) [place] % (Auto) Eos % (Auto) Baso % (Auto) Lymph # (Auto) [place] # (Auto) Eos # (Auto) Baso # (Auto) Abs Immat Gran (auto) Absolute Neuts (auto) Absolute Nucleated RBC Nucleated RBC % (auto) Smear Tech's Comments Anion Gap Estim Creat Clear Calc Estimated GFR POC Glucose 139 H 146 H 212 H Random Glucose Calcium Total Bilirubin Direct Bilirubin AST ALT Alkaline Phosphatase Total Protein Albumin 04/26/25 04/26/25 04/26/25 06:47 06:47 06:47 MCV MCH MCHC RDW Plt Count MPV Immature Gran % (Auto) Neut % (Auto) Lymph % (Auto) [place] % (Auto) Eos % (Auto) Baso % (Auto) Lymph # (Auto) [place] # (Auto) Eos # (Auto) Baso # (Auto) Abs Immat Gran (auto) Absolute Neuts (auto) Absolute Nucleated RBC Nucleated RBC % (auto) Smear Tech's Comments Anion Gap 10 L Cancelled Estim Creat Clear Calc 73.9 Cancelled Estimated GFR > 60 POC Glucose Random Glucose Calcium Total Bilirubin Direct Bilirubin AST ALT Alkaline Phosphatase Total Protein Albumin 04/26/25 04/26/25 04/26/25 06:47 06:47 06:47 MCV MCH MCHC RDW Plt Count MPV Immature Gran % (Auto) Neut % (Auto) Lymph % (Auto) [place] % (Auto) Eos % (Auto) Baso % (Auto) Lymph # (Auto) [place] # (Auto) Eos # (Auto) Baso # (Auto) Abs Immat Gran (auto) Absolute Neuts (auto) Absolute Nucleated RBC Nucleated RBC % (auto) Smear Tech's Comments Anion Gap Estim Creat Clear Calc Estimated GFR Cancelled POC Glucose Random Glucose 190 H Cancelled Calcium 8.0 L Cancelled Total Bilirubin 3.4 H Direct Bilirubin AST ALT Alkaline Phosphatase Total Protein Albumin 04/26/25 04/26/25 04/26/25 06:47 06:47 06:47 MCV MCH MCHC RDW Plt Count MPV Immature Gran % (Auto) Neut % (Auto) Lymph % (Auto) [place] % (Auto) Eos % (Auto) Baso % (Auto) Lymph # (Auto) [place] # (Auto) Eos # (Auto) Baso # (Auto) Abs Immat Gran (auto) Absolute Neuts (auto) Absolute Nucleated RBC Nucleated RBC % (auto) Smear Tech's Comments Anion Gap Estim Creat Clear Calc Estimated GFR POC Glucose Random Glucose Calcium Total Bilirubin Cancelled Direct Bilirubin 2.5 H Cancelled AST 77 H Cancelled ALT 85 H Alkaline Phosphatase Total Protein Albumin 04/26/25 04/26/25 04/26/25 06:47 06:47 06:47 MCV MCH MCHC RDW Plt Count MPV Immature Gran % (Auto) Neut % (Auto) Lymph % (Auto) [place] % (Auto) Eos % (Auto) Baso % (Auto) Lymph # (Auto) [place] # (Auto) Eos # (Auto) Baso # (Auto) Abs Immat Gran (auto) Absolute Neuts (auto) Absolute Nucleated RBC Nucleated RBC % (auto) Smear Tech's Comments Anion Gap Estim Creat Clear Calc Estimated GFR POC Glucose Random Glucose Calcium Total Bilirubin Direct Bilirubin AST ALT Cancelled Alkaline Phosphatase 200 H Cancelled Total Protein 5.2 L Cancelled Albumin 2.9 L 04/26/25 04/26/25 04/26/25 06:47 06:48 06:48 MCV Cancelled 83.6 MCH Cancelled MCHC RDW Plt Count MPV Immature Gran % (Auto) Neut % (Auto) Lymph % (Auto) [place] % (Auto) Eos % (Auto) Baso % (Auto) Lymph # (Auto) [place] # (Auto) Eos # (Auto) Baso # (Auto) Abs Immat Gran (auto) Absolute Neuts (auto) Absolute Nucleated RBC Nucleated RBC % (auto) Smear Tech's Comments Anion Gap Estim Creat Clear Calc Estimated GFR POC Glucose Random Glucose Calcium Total Bilirubin Direct Bilirubin AST ALT Alkaline Phosphatase Total Protein Albumin Cancelled 04/26/25 04/26/25 04/26/25 06:48 06:48 06:48 MCV MCH 29.3 MCHC Cancelled 35.0 RDW Cancelled 13.8 Plt Count Cancelled MPV Immature Gran % (Auto) Neut % (Auto) Lymph % (Auto) [place] % (Auto) Eos % (Auto) Baso % (Auto) Lymph # (Auto) [place] # (Auto) Eos # (Auto) Baso # (Auto) Abs Immat Gran (auto) Absolute Neuts (auto) Absolute Nucleated RBC Nucleated RBC % (auto) Smear Tech's Comments Anion Gap Estim Creat Clear Calc Estimated GFR POC Glucose Random Glucose Calcium Total Bilirubin Direct Bilirubin AST ALT Alkaline Phosphatase Total Protein Albumin 04/26/25 04/26/25 04/26/25 06:48 06:48 06:48 MCV MCH MCHC RDW Plt Count 94 L MPV Cancelled 11.1 Immature Gran % (Auto) 0.4 Neut % (Auto) 75.5 H Lymph % (Auto) 13.2 L [place] % (Auto) 9.7 Eos % (Auto) 0.9 Baso % (Auto) 0.3 Lymph # (Auto) 1.0 L [place] # (Auto) 0.7 Eos # (Auto) 0.1 Baso # (Auto) 0.0 Abs Immat Gran (auto) 0.03 Absolute Neuts (auto) 5.7 Absolute Nucleated RBC Cancelled 0.000 Nucleated RBC % (auto) Cancelled Smear Tech's Comments Anion Gap Estim Creat Clear Calc Estimated GFR POC Glucose Random Glucose Calcium Total Bilirubin Direct Bilirubin AST ALT Alkaline Phosphatase Total Protein Albumin 04/26/25 04/26/25 06:48 07:23 MCV MCH MCHC RDW Plt Count MPV Immature Gran % (Auto) Neut % (Auto) Lymph % (Auto) [place] % (Auto) Eos % (Auto) Baso % (Auto) Lymph # (Auto) [place] # (Auto) Eos # (Auto) Baso # (Auto) Abs Immat Gran (auto) Absolute Neuts (auto) Absolute Nucleated RBC Nucleated RBC % (auto) 0.0 Smear Tech's Comments VERIFIED Anion Gap Estim Creat Clear Calc Estimated GFR POC Glucose 175 H Random Glucose Calcium Total Bilirubin Direct Bilirubin AST ALT Alkaline Phosphatase Total Protein Albumin Microbiology Microbiology Results: Microbiology 04/23/25 16:04 Blood Culture - Final Blood - Venous Escherichia coli 04/23/25 16:04 Blood Culture - Preliminary Blood - Venous No growth after 48 hours. 04/23/25 21:04 Urine Culture - Final Urine clean catch - Clean Catch Midstream Coag negative Staphylococcus Procedures Date of Service Date of Service: 04/26/25 Progress Note: A&P Assessment and plan (1) Acute cholecystitis: Status: Acute (2) S/P laparoscopic cholecystectomy: Status: Acute Plan 84-year-old male patient status post laparoscopic cholecystectomy with intraoperative cholangiogram. This morning the patient feels much improved with minimal incisional pain. He is tolerating some p.o.. Laboratories reveal hypokalemia which is being replaced this morning. Liver functions are slowly improving as well. Continue with regular low-fat diet. Possible discharge to home tomorrow. Recheck BMP in a.m.. Time Spent With Patient Time: Total time managing care of this patient today ____ minutes. Quality Stroke Does the patient have a stroke diagnosis?: No VTE Prior VTE?: No VTE Risk Level:: Surgical - moderate VTE Device Contraindication: N/A - Device Ordered VTE Drug Contraindication: Treatment Not Indicated
[2025-04-26] MEDS: Potassium Chloride/H20 10 MEQ/100 ML PIGGYBACK 100 MEQ IV ×4 (09:41→13:37)
[2025-04-26] MEDS: Potassium Chloride ER 20 MEQ TAB.ER.PRT 40 MEQ PO (09:41)
[2025-04-26 10:13] LABS: Magnesium 1.9 mg/dL (1.6-2.6)
--- NOTE | 2025-04-26 10:59 | HO.PM.IMPN ---
Subjective Subjective Date of Service: 04/26/25 Interval History: POD1 lap murtaza, minimal RUQ pain no shortness of breath of chest pain Review of Systems Review of Systems: Yes all other systems are reviewed and are negative Physical Exam Vital Signs: Vital Signs: Last Vital Signs Temp 97.7 F 04/26/25 07:24 Pulse 63 04/26/25 07:24 Resp 16 04/26/25 07:24 BP 134/66 04/26/25 07:24 Pulse Ox 93 04/26/25 07:24 O2 Del Method Room Air 04/26/25 07:24 BMI result Body Mass Index 24.1 Gen: in no acute distress HEENT: sclera anicteric, moist mucus membranes Neck: supple Lungs: clear to auscultation bilaterally Heart: regular rate and rhythm, no murmurs Abd: soft, lap murtaza incisions dry, non-distended Ext: no edema Skin: warm/well-perfused Neuro: alert and oriented x3, no focal findings Psych: appropriate affect Objective Data Active Medications Acetaminophen (Acetaminophen 325 Mg Tablet) 650 mg PO Q6H PRN PRN Reason: Pain, Mild 1-3,fever,headache Calcium Carbonate (Calcium Carbonate 750 Mg Tab.Chew) 750 mg PO Q4H PRN PRN Reason: Heartburn Dextrose (Dextrose 50 % 25 Gm/50 Ml Syringe) 25 gm IVPUSH Q15M PRN; Protocol PRN Reason: per Hypoglycemia Standing Ord. Last Admin: 04/24/25 16:29 Dose: 25 gm Documented By: MARTINA Glucose (Glucose Gel 15 Gm Gel..Gram.) 15 gm PO Q15M PRN; Protocol PRN Reason: per Hypoglycemia Standing Ord. Potassium Chloride (Potassium Chloride/H20) 10 meq in 100 mls @ 100 mls/hr IV Q1H KIRSTEN Stop: 04/26/25 13:59 Last Admin: 04/26/25 09:41 Dose: 100 mls/hr Documented By: JAMES Insulin Human Lispro (Insulin Lispro 100 Unit/Ml 3 Ml Vial) 0 unit SUBCUT QIDACHS [facility]; Protocol Last Admin: 04/26/25 07:54 Dose: Not Given Documented By: TRISH Non-Admin Reason: Patient Refused Magnesium Hydroxide (Milk Of Magnesia 30 Ml Oral.Susp) 30 ml PO DAILY PRN PRN Reason: Constipation Melatonin (Melatonin 3 Mg Tablet) 6 mg PO BEDTIME PRN PRN Reason: Insomnia Metoprolol Tartrate (Metoprolol Tartrate 50 Mg Tablet) 50 mg PO DAILY [facility]; Protocol Last Admin: 04/26/25 07:54 Dose: 50 mg Documented By: TRISH Morphine Sulfate (Morphine Sulfate 4 Mg/Ml Cartridge) 3 mg IVPUSH Q3H PRN; Protocol PRN Reason: Pain, Severe (Pain Scale 7-10) Naloxone HCl (Naloxone Hcl 0.4 Mg/Ml Vial) 0.04 mg IVPUSH Q5M PRN PRN Reason: Excessive sedation or RR < 8 Ondansetron HCl (Ondansetron Hcl 4 Mg/2 Ml Vial) 4 mg IVPUSH Q8H PRN PRN Reason: Nausea and Vomiting Oxycodone HCl (Oxycodone Hcl Immed Release 5 Mg Tablet) 5 mg PO Q4H PRN PRN Reason: Pain, Moderate(Pain Scale 4-6) Sodium Chloride (0.9 % Sodium Chloride Flush 3 Ml Syringe) 3 ml IVFLUSH QSHIFT [facility] Last Admin: 04/26/25 07:54 Dose: 3 ml Documented By: TRISH Labs 04/26/25 06:48 04/26/25 06:47 Labs: Laboratory Results - last 24 hr 04/25/25 04/25/25 04/25/25 11:02 17:24 20:25 MCV MCH MCHC RDW Plt Count MPV Immature Gran % (Auto) Neut % (Auto) Lymph % (Auto) [place] % (Auto) Eos % (Auto) Baso % (Auto) Lymph # (Auto) [place] # (Auto) Eos # (Auto) Baso # (Auto) Abs Immat Gran (auto) Absolute Neuts (auto) Absolute Nucleated RBC Nucleated RBC % (auto) Smear Tech's Comments Anion Gap Estim Creat Clear Calc Estimated GFR POC Glucose 139 H 146 H 212 H Random Glucose Calcium Magnesium Total Bilirubin Direct Bilirubin AST ALT Alkaline Phosphatase Total Protein Albumin 04/26/25 04/26/25 04/26/25 06:47 06:47 06:47 MCV MCH MCHC RDW Plt Count MPV Immature Gran % (Auto) Neut % (Auto) Lymph % (Auto) [place] % (Auto) Eos % (Auto) Baso % (Auto) Lymph # (Auto) [place] # (Auto) Eos # (Auto) Baso # (Auto) Abs Immat Gran (auto) Absolute Neuts (auto) Absolute Nucleated RBC Nucleated RBC % (auto) Smear Tech's Comments Anion Gap 10 L Cancelled Estim Creat Clear Calc 73.9 Cancelled Estimated GFR > 60 POC Glucose Random Glucose Calcium Magnesium Total Bilirubin Direct Bilirubin AST ALT Alkaline Phosphatase Total Protein Albumin 04/26/25 04/26/25 04/26/25 06:47 06:47 06:47 MCV MCH MCHC RDW Plt Count MPV Immature Gran % (Auto) Neut % (Auto) Lymph % (Auto) [place] % (Auto) Eos % (Auto) Baso % (Auto) Lymph # (Auto) [place] # (Auto) Eos # (Auto) Baso # (Auto) Abs Immat Gran (auto) Absolute Neuts (auto) Absolute Nucleated RBC Nucleated RBC % (auto) Smear Tech's Comments Anion Gap Estim Creat Clear Calc Estimated GFR Cancelled POC Glucose Random Glucose 190 H Cancelled Calcium 8.0 L Cancelled Magnesium 1.9 Total Bilirubin 3.4 H Direct Bilirubin AST ALT Alkaline Phosphatase Total Protein Albumin 04/26/25 04/26/25 04/26/25 06:47 06:47 06:47 MCV MCH MCHC RDW Plt Count MPV Immature Gran % (Auto) Neut % (Auto) Lymph % (Auto) [place] % (Auto) Eos % (Auto) Baso % (Auto) Lymph # (Auto) [place] # (Auto) Eos # (Auto) Baso # (Auto) Abs Immat Gran (auto) Absolute Neuts (auto) Absolute Nucleated RBC Nucleated RBC % (auto) Smear Tech's Comments Anion Gap Estim Creat Clear Calc Estimated GFR POC Glucose Random Glucose Calcium Magnesium Total Bilirubin Cancelled Direct Bilirubin 2.5 H Cancelled AST 77 H Cancelled ALT 85 H Alkaline Phosphatase Total Protein Albumin 04/26/25 04/26/25 04/26/25 06:47 06:47 06:47 MCV MCH MCHC RDW Plt Count MPV Immature Gran % (Auto) Neut % (Auto) Lymph % (Auto) [place] % (Auto) Eos % (Auto) Baso % (Auto) Lymph # (Auto) [place] # (Auto) Eos # (Auto) Baso # (Auto) Abs Immat Gran (auto) Absolute Neuts (auto) Absolute Nucleated RBC Nucleated RBC % (auto) Smear Tech's Comments Anion Gap Estim Creat Clear Calc Estimated GFR POC Glucose Random Glucose Calcium Magnesium Total Bilirubin Direct Bilirubin AST ALT Cancelled Alkaline Phosphatase 200 H Cancelled Total Protein 5.2 L Cancelled Albumin 2.9 L 04/26/25 04/26/25 04/26/25 06:47 06:48 06:48 MCV Cancelled 83.6 MCH Cancelled MCHC RDW Plt Count MPV Immature Gran % (Auto) Neut % (Auto) Lymph % (Auto) [place] % (Auto) Eos % (Auto) Baso % (Auto) Lymph # (Auto) [place] # (Auto) Eos # (Auto) Baso # (Auto) Abs Immat Gran (auto) Absolute Neuts (auto) Absolute Nucleated RBC Nucleated RBC % (auto) Smear Tech's Comments Anion Gap Estim Creat Clear Calc Estimated GFR POC Glucose Random Glucose Calcium Magnesium Total Bilirubin Direct Bilirubin AST ALT Alkaline Phosphatase Total Protein Albumin Cancelled 04/26/25 04/26/25 04/26/25 06:48 06:48 06:48 MCV MCH 29.3 MCHC Cancelled 35.0 RDW Cancelled 13.8 Plt Count Cancelled MPV Immature Gran % (Auto) Neut % (Auto) Lymph % (Auto) [place] % (Auto) Eos % (Auto) Baso % (Auto) Lymph # (Auto) [place] # (Auto) Eos # (Auto) Baso # (Auto) Abs Immat Gran (auto) Absolute Neuts (auto) Absolute Nucleated RBC Nucleated RBC % (auto) Smear Tech's Comments Anion Gap Estim Creat Clear Calc Estimated GFR POC Glucose Random Glucose Calcium Magnesium Total Bilirubin Direct Bilirubin AST ALT Alkaline Phosphatase Total Protein Albumin 04/26/25 04/26/25 04/26/25 06:48 06:48 06:48 MCV MCH MCHC RDW Plt Count 94 L MPV Cancelled 11.1 Immature Gran % (Auto) 0.4 Neut % (Auto) 75.5 H Lymph % (Auto) 13.2 L [place] % (Auto) 9.7 Eos % (Auto) 0.9 Baso % (Auto) 0.3 Lymph # (Auto) 1.0 L [place] # (Auto) 0.7 Eos # (Auto) 0.1 Baso # (Auto) 0.0 Abs Immat Gran (auto) 0.03 Absolute Neuts (auto) 5.7 Absolute Nucleated RBC Cancelled 0.000 Nucleated RBC % (auto) Cancelled Smear Tech's Comments Anion Gap Estim Creat Clear Calc Estimated GFR POC Glucose Random Glucose Calcium Magnesium Total Bilirubin Direct Bilirubin AST ALT Alkaline Phosphatase Total Protein Albumin 04/26/25 04/26/25 06:48 07:23 MCV MCH MCHC RDW Plt Count MPV Immature Gran % (Auto) Neut % (Auto) Lymph % (Auto) [place] % (Auto) Eos % (Auto) Baso % (Auto) Lymph # (Auto) [place] # (Auto) Eos # (Auto) Baso # (Auto) Abs Immat Gran (auto) Absolute Neuts (auto) Absolute Nucleated RBC Nucleated RBC % (auto) 0.0 Smear Tech's Comments VERIFIED Anion Gap Estim Creat Clear Calc Estimated GFR POC Glucose 175 H Random Glucose Calcium Magnesium Total Bilirubin Direct Bilirubin AST ALT Alkaline Phosphatase Total Protein Albumin Microbiology Microbiology Results: Microbiology 04/23/25 16:04 Blood Culture - Final Blood - Venous Escherichia coli 04/23/25 16:04 Blood Culture - Preliminary Blood - Venous No growth after 48 hours. 04/23/25 21:04 Urine Culture - Final Urine clean catch - Clean Catch Midstream Coag negative Staphylococcus Assessment and Plan (1) Acute cholecystitis: Status: Acute Assessment and Plan: d4 for 84yo M with CAD s/p 5v CABG 2002, [place] 2003, AICD, ischemic cardiomyopathy [LVEF 20-25% Nov 2024], HTN, and DM2, on Gen Surg service for acute cholecystitis complicated by bacteremia; medicine consult for management of comorbid conditions CAD ischemic cardiomyopathy HTN - resume statin + clopidogrel + spironolactone - continue metoprolol tartrate acute cholecystitis E coli bacteremia - /- piperacillin-tazobactam, E coli pansensitive, change to cefuroxime x14d upon discahrge hypoK - replete PO and IV, restart spironolactone, recheck level tomorrow DM2 with hypoglycemia - hold dapafliglozin, glipizide, and semaglutide - correction-dose lispro if needed VTE ppx - enoxaparin postoperatively at discretion of Surgery team Total time managing care of this patient today: 45 minutes. Quality Stroke Does the patient have a stroke diagnosis?: No VTE Prior VTE?: No VTE Risk Level:: Surgical - moderate VTE Device Contraindication: N/A - Device Ordered VTE Drug Contraindication: Treatment Not Indicated
[2025-04-26] MEDS: Clopidogrel Bisulfate 75 MG TABLET PO (11:23)
[2025-04-26] MEDS: cefuroxime axetiL 500 MG TABLET PO ×2 (11:23→23:06)
[2025-04-26] MEDS: Spironolactone 25 MG TABLET PO (11:23)
[2025-04-26 11:32] LABS: Basophils Percent Auto 0.2 % (0-2); Eosinophils Absolute Auto 0.1 X10*3/uL (0.0-0.4); Eosinophils Percent Auto 1.4 % (0-4); Imm Gran Abs Auto 0.05 X10*3/uL (0.00-0.03); Imm Gran Pct Auto 0.6 % (0.0-0.4); Lymphocytes Absolute Auto 1.2 X10*3/uL (1.2-4.9); Lymphocytes Percent Auto 14.8 % (20-40); MANUAL DIFF FLAG SCAN; Mean Corpuscular Hemoglobin 29.3 pg (27.0-33.0); Mean Corpuscular Volume 83.7 fL (80.0-98.0); Mean Platelet Volume 10.4 fL (9.4-12.4); Monocytes Absolute Auto 0.8 X10*3/uL (0.1-1.2); Monocytes Percent Auto 9.4 % (2-11); Neutrophils Absolute Auto 6.1 x10*3/uL (2.0-8.3); Neutrophils Percent Auto 73.6 % (45-73); Red Blood Count 4.78 X10*6/uL (4.60-5.80); Red Cell Distribution Width 13.7 % (11.0-16.0); SCAN SMEAR FLAG 1; White Blood Count 8.3 X10*3/uL (4.8-10.8)
[2025-04-26 11:38] LABS: Platelet Count 97 X10*3/uL (160-400)
[2025-04-26 11:39] LABS: Alanine Aminotransferase 94 U/L (0-40); Albumin Level 3.1 g/dL (3.5-5.0); Alkaline Phosphatase 223 U/L (39-117); Anion Gap 8 (12-20); Aspartate Amino Transferase 86 U/L (5-37); Bilirubin Direct 2.5 mg/dL (0.0-0.5); Bilirubin Total 3.5 mg/dL (0.0-1.0); Blood Urea Nitrogen 11 mg/dL (9-16); Calcium 8.3 mg/dL (8.4-10.2); Carbon Dioxide 27 mmol/L (22-29); Chloride 104 mmol/L (96-108); Creatinine Clr Calc Pharmacy 71.1; Estimated Glomerular Filt Rate > 60; Glucose Random 166 mg/dL (60-115); Potassium 3.6 mmol/L (3.3-5.1); Sodium 135 mmol/L (135-145); Total Protein 5.5 g/dL (6.5-8.0)
[2025-04-26 11:48] LABS: Glucose, Whole Blood 164 mg/dL (60-115)
[2025-04-26 12:00] VITALS: BP 135/67; PULSE 70; RESP 16; TEMP 36.8; O2SAT 95
[2025-04-26] MEDS: Milk of Magnesia 30 ML ORAL.SUSP PO (14:38)
[2025-04-26 15:33] VITALS: BP 131/64; PULSE 67; RESP 17; TEMP 37.1; O2SAT 95
[2025-04-26 16:15] LABS: Glucose, Whole Blood 212 mg/dL (60-115)
[2025-04-26 19:53] LABS: Glucose, Whole Blood 229 mg/dL (60-115)
[2025-04-26 20:00] VITALS: BP 134/65; PULSE 75; RESP 18; TEMP 36.9; O2SAT 94
[2025-04-26] MEDS: Atorvastatin Calcium 80 MG TABLET PO (20:50)
[2025-04-26 23:50] VITALS: BP 130/60; PULSE 72; RESP 18; TEMP 36.9; O2SAT 96
[2025-04-27 03:26] VITALS: BP 120/64; PULSE 60; RESP 18; TEMP 37; O2SAT 95
[2025-04-27 06:40] LABS: Anion Gap 8 (12-20); Blood Urea Nitrogen 9 mg/dL (9-16); Carbon Dioxide 26 mmol/L (22-29); Chloride 105 mmol/L (96-108); Creatinine Clr Calc Pharmacy 82.5; Estimated Glomerular Filt Rate > 60; Glucose Random 164 mg/dL (60-115); Potassium 3.7 mmol/L (3.3-5.1); Sodium 135 mmol/L (135-145)
[2025-04-27 07:29] VITALS: BP 143/70; PULSE 60; RESP 16; TEMP 36.7; O2SAT 95
[2025-04-27 08:00] LABS: Glucose, Whole Blood 140 mg/dL (60-115)
--- NOTE | 2025-04-27 08:41 | PM.PNGS ---
Subjective Subjective Date of Service: 04/27/25 Interval history: Patient feels well. Denies any abdominal pain and has not required any pain medication. He is eating well without nausea or vomiting. Physical Exam Vital Signs: Vital Signs: Last Vital Signs Temp 98.0 F 04/27/25 07:29 Pulse 60 04/27/25 07:29 Resp 16 04/27/25 07:29 BP 143/70 H 04/27/25 07:29 Pulse Ox 95 04/27/25 07:29 O2 Del Method Room Air 04/27/25 07:29 BMI result Body Mass Index 24.1 Const: General: comfortable Nutritional Appearance: well nourished Orientation/consciousness: patient oriented x3 Resp: Effort & Inspection: normal respiratory effort GI: Other: Abdominal dressings are clean and intact Inspection: Yes normal to inspection Palpation (GI): Soft to palpation, nontender, no guarding and not rigid Neuro: General: patient oriented x3 Extrem: General: No edema Objective Data Active Medications Acetaminophen (Acetaminophen 325 Mg Tablet) 650 mg PO Q6H PRN PRN Reason: Pain, Mild 1-3,fever,headache Atorvastatin Calcium (Atorvastatin Calcium 80 Mg Tablet) 80 mg PO BEDTIME [facility] Last Admin: 04/26/25 20:50 Dose: 80 mg Documented By: MATTY Calcium Carbonate (Calcium Carbonate 750 Mg Tab.Chew) 750 mg PO Q4H PRN PRN Reason: Heartburn Cefuroxime Axetil (Cefuroxime Axetil 500 Mg Tablet) 500 mg PO Q12H [facility] Last Admin: 04/26/25 23:06 Dose: 500 mg Documented By: MATTY Clopidogrel Bisulfate (Clopidogrel Bisulfate 75 Mg Tablet) 75 mg PO DAILY [facility] Last Admin: 04/26/25 11:23 Dose: 75 mg Documented By: JAMES Dextrose (Dextrose 50 % 25 Gm/50 Ml Syringe) 25 gm IVPUSH Q15M PRN; Protocol PRN Reason: per Hypoglycemia Standing Ord. Last Admin: 04/24/25 16:29 Dose: 25 gm Documented By: MARTINA Glucose (Glucose Gel 15 Gm Gel..Gram.) 15 gm PO Q15M PRN; Protocol PRN Reason: per Hypoglycemia Standing Ord. Insulin Human Lispro (Insulin Lispro 100 Unit/Ml 3 Ml Vial) 0 unit SUBCUT QIDACHS [facility]; Protocol Last Admin: 04/27/25 08:07 Dose: Not Given Documented By: JAMES Non-Admin Reason: Patient Refused Magnesium Hydroxide (Milk Of Magnesia 30 Ml Oral.Susp) 30 ml PO DAILY PRN PRN Reason: Constipation Last Admin: 04/26/25 14:38 Dose: 30 ml Documented By: JAMES Melatonin (Melatonin 3 Mg Tablet) 6 mg PO BEDTIME PRN PRN Reason: Insomnia Metoprolol Tartrate (Metoprolol Tartrate 50 Mg Tablet) 50 mg PO DAILY [facility]; Protocol Last Admin: 04/26/25 07:54 Dose: 50 mg Documented By: TRISH Morphine Sulfate (Morphine Sulfate 4 Mg/Ml Cartridge) 3 mg IVPUSH Q3H PRN; Protocol PRN Reason: Pain, Severe (Pain Scale 7-10) Naloxone HCl (Naloxone Hcl 0.4 Mg/Ml Vial) 0.04 mg IVPUSH Q5M PRN PRN Reason: Excessive sedation or RR < 8 Ondansetron HCl (Ondansetron Hcl 4 Mg/2 Ml Vial) 4 mg IVPUSH Q8H PRN PRN Reason: Nausea and Vomiting Oxycodone HCl (Oxycodone Hcl Immed Release 5 Mg Tablet) 5 mg PO Q4H PRN PRN Reason: Pain, Moderate(Pain Scale 4-6) Sodium Chloride (0.9 % Sodium Chloride Flush 3 Ml Syringe) [facility] Last Admin: 04/26/25 20:56 Dose: 3 ml Documented By: MATTY Spironolactone (Spironolactone 25 Mg Tablet) 25 mg PO DAILY [facility]; Protocol Last Admin: 04/26/25 11:23 Dose: 25 mg Documented By: JAMES Labs 04/26/25 11:09 04/27/25 05:58 Labs: Laboratory Results - last 24 hr 04/26/25 04/26/25 04/26/25 06:47 11:09 11:39 MCV 83.7 MCH 29.3 MCHC 35.0 RDW 13.7 Plt Count 97 L MPV 10.4 Immature Gran % (Auto) 0.6 H Neut % (Auto) 73.6 H Lymph % (Auto) 14.8 L [place] % (Auto) 9.4 Eos % (Auto) 1.4 Baso % (Auto) 0.2 Lymph # (Auto) 1.2 [place] # (Auto) 0.8 Eos # (Auto) 0.1 Baso # (Auto) 0.0 Abs Immat Gran (auto) 0.05 H Absolute Neuts (auto) 6.1 Absolute Nucleated RBC 0.000 Nucleated RBC % (auto) 0.0 Anion Gap 10 L 8 L Estim Creat Clear Calc 71.1 Estimated GFR > 60 POC Glucose 164 H Random Glucose 166 H Calcium 8.3 L Magnesium 1.9 Total Bilirubin 3.5 H Direct Bilirubin 2.5 H 2.5 H AST 86 H ALT 94 H Alkaline Phosphatase 223 H Total Protein 5.5 L Albumin 3.1 L 04/26/25 04/26/25 04/27/25 16:04 19:48 05:58 MCV MCH MCHC RDW Plt Count MPV Immature Gran % (Auto) Neut % (Auto) Lymph % (Auto) [place] % (Auto) Eos % (Auto) Baso % (Auto) Lymph # (Auto) [place] # (Auto) Eos # (Auto) Baso # (Auto) Abs Immat Gran (auto) Absolute Neuts (auto) Absolute Nucleated RBC Nucleated RBC % (auto) Anion Gap 8 L Estim Creat Clear Calc 82.5 Estimated GFR > 60 POC Glucose 212 H 229 H Random Glucose 164 H Calcium 8.0 L Magnesium 2.0 Total Bilirubin Direct Bilirubin AST ALT Alkaline Phosphatase Total Protein Albumin 04/27/25 07:31 MCV MCH MCHC RDW Plt Count MPV Immature Gran % (Auto) Neut % (Auto) Lymph % (Auto) [place] % (Auto) Eos % (Auto) Baso % (Auto) Lymph # (Auto) [place] # (Auto) Eos # (Auto) Baso # (Auto) Abs Immat Gran (auto) Absolute Neuts (auto) Absolute Nucleated RBC Nucleated RBC % (auto) Anion Gap Estim Creat Clear Calc Estimated GFR POC Glucose 140 H Random Glucose Calcium Magnesium Total Bilirubin Direct Bilirubin AST ALT Alkaline Phosphatase Total Protein Albumin Microbiology Microbiology Results: Microbiology 04/23/25 16:04 Blood Culture - Final Blood - Venous Escherichia coli Procedures Date of Service Date of Service: 04/27/25 Progress Note: A&P Assessment and plan (1) Acute cholecystitis: Status: Acute (2) S/P laparoscopic cholecystectomy: Status: Acute Plan 84-year-old male patient status post laparoscopic cholecystectomy for acute cholecystitis. He tolerated the procedure well and his wounds are healing nicely. Plan for discharge today with follow-up in the office in approximately 1 week. I recommended no lifting greater than 10 lb for the next 2 weeks. He should also avoid greasy/fried/fatty foods for the next month. Time Spent With Patient Time: Total time managing care of this patient today ____ minutes. Quality Stroke Does the patient have a stroke diagnosis?: No VTE Prior VTE?: No VTE Risk Level:: Surgical - moderate VTE Device Contraindication: N/A - Device Ordered VTE Drug Contraindication: Treatment Not Indicated
--- NOTE | 2025-04-27 08:43 | P.DS_ITS ---
DS: Providers Provider Date of Service: 04/27/25 Date of admission: 04/23/25 21:40 Date of discharge: 04/27/25 Primary care physician: Romie Vieyra MD Admitting clinician: Blayne Faustin Consults: 04/23/25 21:46 Consult to Hospitalist Routine Comment: Consulting Provider: [facility] [place] [place] Hospitalists Reason For Exam: hx of CABG, OR, AICD, periop risk stratification 04/24/25 07:38 Consult to Gastroenterology Routine Consulting Provider: Bev Benavides Reason for consultation: elevated LFTs, ?CBD stone Has provider been notified: No 04/24/25 12:19 Consult to Cardiology Routine Consulting Provider: [facility] [place] [place] [facility] Reason for consultation: AICD in place, pre-op clearance Attending physician on discharge: Blayne Faustin DS: Diagnosis Discharge Diagnosis (1) Acute cholecystitis: Status: Acute (2) S/P laparoscopic cholecystectomy: Status: Acute DS: Summary Hospital Course Hospital Course: Leobardo Carreon is a 84 year old male with distant hx of 5 vessel CABG, OR 1 year following, s/p prophylactic AICD (15 years ago), HTN, diabetes mellitus who was sent to the ED by his PCP for evaluation of RUQ pain and vomiting and diarrhea. He reports he was on cruise to the [facility] 3 weeks prior and developed diarrhea which resolved while he was at home. He then traveled to [place] over the past weekend where he developed diarrhea again associated with some vomiting which again improved. However yesterday, he developed RUQ abd pain and vomiting with poor oral intake and general malaise over the past few days and called his PCP who sent him to the ED. Work up in the ED included CBC, BMP, LFTs which was significant for 14 and platelets 116, multiple electrolyte abnormalities, and elevated LFTs with t bili/direct bili of 3.3/2.3 125 and 70. He had a lactic acidosis which improved with IV hydration. CT scan abd pelvis and ABD US was obtained which showed markedly distended gallbladder with large amount of sludge and moderate gallbladder wall thickening. CBD measuring 9mm. Surgical admission was requested. Hospitalist consultation was requested and cardiology consultation was also requested. After deemed to be a suitable surgical candidate, he was taken to the OR on 04/25/2025 for a laparoscopic cholecystectomy. Operative findings were consistent with acute cholecystitis with a thickened gallbladder wall adhesions to the gallbladder. He tolerated the procedure well and remained hemodynamically stable. His Plavix was held in preparation for the surgery. On postoperative day 1 the patient was doing great with no abdominal pain, tolerating regular diet. He was restarted on his Plavix and started on Ceftin for positive blood cultures with a sensitive E coli. Postoperative day 2 the patient continued to do well with no abdominal pain, tolerating regular diet without fever or chills. He is discharged to home in stable condition. He will follow up in the office in approximately 1 week. He will continue the Ceftin for 10 days. Time spent discussing smoking cessation with patient: 3 to 10 minutes Status at Discharge Functional status at discharge: independent ambulation Overall status at discharge: patient is back to baseline Time Attestation Discharge Coordination Time (in mins): 25 Quality: Safe Use of Opioids Does Pt have an Active Cancer Diagnosis on the Problem List?: No Quality: Stroke Does the patient have a stroke diagnosis?: No Physical Exam Vital Signs: Vital Signs: Last Vital Signs Temp 98.0 F 04/27/25 07:29 Pulse 60 04/27/25 07:29 Resp 16 04/27/25 07:29 BP 143/70 H 04/27/25 07:29 Pulse Ox 95 04/27/25 07:29 O2 Del Method Room Air 04/27/25 07:29 BMI result Body Mass Index 24.1 Const: General: comfortable Nutritional Appearance: well nourished Orientation/consciousness: patient oriented x3 Resp: Effort & Inspection: normal respiratory effort GI: Other: Abdominal dressings are clean and intact Inspection: Yes normal to inspection Palpation (GI): Soft to palpation, nontender, no guarding and not rigid Neuro: General: patient oriented x3 Extrem: General: No edema DS: Data Data Completed and Pending Pending studies at discharge: Pending at discharge 04/25/25 15:44 Surgical [PTH] Routine Labs on day of discharge: Laboratory Results - last 24 hr 04/26/25 04/26/25 04/26/25 06:47 11:09 11:39 WBC 8.3 RBC 4.78 Hgb 14.0 Hct 40.0 L MCV 83.7 MCH 29.3 MCHC 35.0 RDW 13.7 Plt Count 97 L MPV 10.4 Immature Gran % (Auto) 0.6 H Neut % (Auto) 73.6 H Lymph % (Auto) 14.8 L [place] % (Auto) 9.4 Eos % (Auto) 1.4 Baso % (Auto) 0.2 Lymph # (Auto) 1.2 [place] # (Auto) 0.8 Eos # (Auto) 0.1 Baso # (Auto) 0.0 Abs Immat Gran (auto) 0.05 H Absolute Neuts (auto) 6.1 Absolute Nucleated RBC 0.000 Nucleated RBC % (auto) 0.0 Sodium 137 135 Potassium 2.9 L* 3.6 D Chloride 105 104 Carbon Dioxide 25 27 Anion Gap 10 L 8 L BUN 11 Creatinine 0.80 Estim Creat Clear Calc 71.1 Estimated GFR > 60 POC Glucose 164 H Random Glucose 166 H Calcium 8.3 L Magnesium 1.9 Total Bilirubin 3.5 H Direct Bilirubin 2.5 H 2.5 H AST 86 H ALT 94 H Alkaline Phosphatase 223 H Total Protein 5.5 L Albumin 3.1 L 04/26/25 04/26/25 04/27/25 16:04 19:48 05:58 WBC RBC Hgb Hct MCV MCH MCHC RDW Plt Count MPV Immature Gran % (Auto) Neut % (Auto) Lymph % (Auto) [place] % (Auto) Eos % (Auto) Baso % (Auto) Lymph # (Auto) [place] # (Auto) Eos # (Auto) Baso # (Auto) Abs Immat Gran (auto) Absolute Neuts (auto) Absolute Nucleated RBC Nucleated RBC % (auto) Sodium 135 Potassium 3.7 Chloride 105 Carbon Dioxide 26 Anion Gap 8 L BUN 9 Creatinine 0.69 Estim Creat Clear Calc 82.5 Estimated GFR > 60 POC Glucose 212 H 229 H Random Glucose 164 H Calcium 8.0 L Magnesium 2.0 Total Bilirubin Direct Bilirubin AST ALT Alkaline Phosphatase Total Protein Albumin 04/27/25 07:31 WBC RBC Hgb Hct MCV MCH MCHC RDW Plt Count MPV Immature Gran % (Auto) Neut % (Auto) Lymph % (Auto) [place] % (Auto) Eos % (Auto) Baso % (Auto) Lymph # (Auto) [place] # (Auto) Eos # (Auto) Baso # (Auto) Abs Immat Gran (auto) Absolute Neuts (auto) Absolute Nucleated RBC Nucleated RBC % (auto) Sodium Potassium Chloride Carbon Dioxide Anion Gap BUN Creatinine Estim Creat Clear Calc Estimated GFR POC Glucose 140 H Random Glucose Calcium Magnesium Total Bilirubin Direct Bilirubin AST ALT Alkaline Phosphatase Total Protein Albumin Preliminary micro results at discharge 04/23/25 16:04 Blood Culture - Preliminary Blood - Venous No growth after 48 hours. Discharge Plan Discharge Anticipated Discharge Date/Time: 04/27/25 08:37 Patient Disposition: Home, Self-Care Discharge Diagnosis: Acute cholecystitis, cholelithiasis Referrals: Romie Vieyra MD [Primary Care Provider] - 1 Week Blayne Faustin MD [Physician] - 1 Week Discharge Medications: New cefuroxime axetil 500 mg tablet 500 mg PO BID 20 Days Qty: 40 0RF Continued glipizide 10 mg tablet 10 mg PO BID clopidogrel 75 mg tablet 75 mg PO DAILY spironolactone 25 mg tablet 25 mg PO DAILY metoprolol tartrate 50 mg tablet 50 mg PO DAILY rosuvastatin 40 mg tablet 40 mg PO BEDTIME dapagliflozin propanediol [Farxiga] 10 mg tablet 10 mg PO DAILY Rybelsus 14 mg tablet 14 mg PO DAILY loperamide 2 mg Capsule 2 mg PO Q4H PRN (Reason: Loose Stool) Rx Instructions: administer after each loose stool until symptoms controlled; do not exceed 8 mg per 24 hrs Discharge Orders: Discharge Order (Routine); Ordered 04/27/25 Ordered By: Blayne Faustin Diet: Low fat, low cholesterol Activity on Discharge: No heavy lifting Stand Alone Forms: Patient Portal Discharge page Print Language: Luxembourgish Activity Restrictions/Additional Instructions: No lifting > 10 pounds for 2 weeks Stay on low fat diet for 1 month No driving for one week Ice to the incision x 24 hours After 24 hours, use warm compress or heating pad on low as needed Take Tylenol Extra-strength 1-2 tabs every 6 hours as needed Oxycodone every 6-8 hours as needed for pain Colace 100 mg every day as needed for constipation Remove dressing in 3 days Follow up in office in one week (call office at [phone] for appointment). Care Plan Goals: Return to normal activity and diet once fully recovered Health Concerns: Abdominal pain, nausea and vomiting due to cholecystitis Plan of Treatment: Laparoscopic cholecystectomy performed on 04/25/2025 Assessment: Acute cholecystitis, cholelithiasis
[2025-04-27] MEDS: Clopidogrel Bisulfate 75 MG TABLET PO (08:48)
[2025-04-27] MEDS: Spironolactone 25 MG TABLET PO (08:48)
[2025-04-27] MEDS: Metoprolol Tartrate 50 MG TABLET PO (08:48)
[2025-04-27] MEDS: 0.9 % Sodium Chloride Flush 3 ML SYRINGE IVFLUSH (08:50)
--- NOTE | 2025-04-27 09:08 | P.PNIM_ITS ---
Subjective Subjective Date of Service: 04/27/25 Interval History: no abd pain no chest pain Review of Systems Review of Systems: Yes all other systems are reviewed and are negative Physical Exam 2 Vital Signs: Vital Signs: Last Vital Signs Temp 98.0 F 04/27/25 07:29 Pulse 60 04/27/25 07:29 Resp 16 04/27/25 07:29 BP 143/70 H 04/27/25 07:29 Pulse Ox 95 04/27/25 07:29 O2 Del Method Room Air 04/27/25 07:29 BMI result Body Mass Index 24.1 Gen: in no acute distress HEENT: sclera anicteric, moist mucus membranes Neck: supple Lungs: clear to auscultation bilaterally Heart: regular rate and rhythm, no murmurs Abd: soft, lap murtaza incisions x4 dry, non-distended Ext: no edema Skin: warm/well-perfused Neuro: alert and oriented x3, no focal findings Psych: appropriate affect Objective Data Active Medications Acetaminophen (Acetaminophen 325 Mg Tablet) 650 mg PO Q6H PRN PRN Reason: Pain, Mild 1-3,fever,headache Atorvastatin Calcium (Atorvastatin Calcium 80 Mg Tablet) 80 mg PO BEDTIME [facility] Last Admin: 04/26/25 20:50 Dose: 80 mg Documented By: MATTY Calcium Carbonate (Calcium Carbonate 750 Mg Tab.Chew) 750 mg PO Q4H PRN PRN Reason: Heartburn Cefuroxime Axetil (Cefuroxime Axetil 500 Mg Tablet) 500 mg PO Q12H [facility] Last Admin: 04/26/25 23:06 Dose: 500 mg Documented By: MATTY Clopidogrel Bisulfate (Clopidogrel Bisulfate 75 Mg Tablet) 75 mg PO DAILY [facility] Last Admin: 04/27/25 08:48 Dose: 75 mg Documented By: JAMES Dextrose (Dextrose 50 % 25 Gm/50 Ml Syringe) 25 gm IVPUSH Q15M PRN; Protocol PRN Reason: per Hypoglycemia Standing Ord. Last Admin: 04/24/25 16:29 Dose: 25 gm Documented By: MARTINA Glucose (Glucose Gel 15 Gm Gel..Gram.) 15 gm PO Q15M PRN; Protocol PRN Reason: per Hypoglycemia Standing Ord. Insulin Human Lispro (Insulin Lispro 100 Unit/Ml 3 Ml Vial) 0 unit SUBCUT QIDACHS [facility]; Protocol Last Admin: 04/27/25 08:07 Dose: Not Given Documented By: JAMES Non-Admin Reason: Patient Refused Magnesium Hydroxide (Milk Of Magnesia 30 Ml Oral.Susp) 30 ml PO DAILY PRN PRN Reason: Constipation Last Admin: 04/26/25 14:38 Dose: 30 ml Documented By: JAMES Melatonin (Melatonin 3 Mg Tablet) 6 mg PO BEDTIME PRN PRN Reason: Insomnia Metoprolol Tartrate (Metoprolol Tartrate 50 Mg Tablet) 50 mg PO DAILY [facility]; Protocol Last Admin: 04/27/25 08:48 Dose: 50 mg Documented By: JAMES Morphine Sulfate (Morphine Sulfate 4 Mg/Ml Cartridge) 3 mg IVPUSH Q3H PRN; Protocol PRN Reason: Pain, Severe (Pain Scale 7-10) Naloxone HCl (Naloxone Hcl 0.4 Mg/Ml Vial) 0.04 mg IVPUSH Q5M PRN PRN Reason: Excessive sedation or RR < 8 Ondansetron HCl (Ondansetron Hcl 4 Mg/2 Ml Vial) 4 mg IVPUSH Q8H PRN PRN Reason: Nausea and Vomiting Oxycodone HCl (Oxycodone Hcl Immed Release 5 Mg Tablet) 5 mg PO Q4H PRN PRN Reason: Pain, Moderate(Pain Scale 4-6) Sodium Chloride (0.9 % Sodium Chloride Flush 3 Ml Syringe) [facility] Last Admin: 04/27/25 08:50 Dose: 3 ml Documented By: JAMES Spironolactone (Spironolactone 25 Mg Tablet) 25 mg PO DAILY [facility]; Protocol Last Admin: 04/27/25 08:48 Dose: 25 mg Documented By: JAMES Labs 04/26/25 11:09 04/27/25 05:58 Labs: Laboratory Results - last 24 hr 04/26/25 04/26/25 04/26/25 06:47 11:09 11:39 MCV 83.7 MCH 29.3 MCHC 35.0 RDW 13.7 Plt Count 97 L MPV 10.4 Immature Gran % (Auto) 0.6 H Neut % (Auto) 73.6 H Lymph % (Auto) 14.8 L Robertson % (Auto) 9.4 Eos % (Auto) 1.4 Baso % (Auto) 0.2 Lymph # (Auto) 1.2 Robertson # (Auto) 0.8 Eos # (Auto) 0.1 Baso # (Auto) 0.0 Abs Immat Gran (auto) 0.05 H Absolute Neuts (auto) 6.1 Absolute Nucleated RBC 0.000 Nucleated RBC % (auto) 0.0 Anion Gap 8 L Estim Creat Clear Calc 71.1 Estimated GFR > 60 POC Glucose 164 H Random Glucose 166 H Calcium 8.3 L Magnesium 1.9 Total Bilirubin 3.5 H Direct Bilirubin 2.5 H AST 86 H ALT 94 H Alkaline Phosphatase 223 H Total Protein 5.5 L Albumin 3.1 L 04/26/25 04/26/25 04/27/25 16:04 19:48 05:58 MCV MCH MCHC RDW Plt Count MPV Immature Gran % (Auto) Neut % (Auto) Lymph % (Auto) Robertson % (Auto) Eos % (Auto) Baso % (Auto) Lymph # (Auto) Robertson # (Auto) Eos # (Auto) Baso # (Auto) Abs Immat Gran (auto) Absolute Neuts (auto) Absolute Nucleated RBC Nucleated RBC % (auto) Anion Gap 8 L Estim Creat Clear Calc 82.5 Estimated GFR > 60 POC Glucose 212 H 229 H Random Glucose 164 H Calcium 8.0 L Magnesium 2.0 Total Bilirubin Direct Bilirubin AST ALT Alkaline Phosphatase Total Protein Albumin 04/27/25 07:31 MCV MCH MCHC RDW Plt Count MPV Immature Gran % (Auto) Neut % (Auto) Lymph % (Auto) Robertson % (Auto) Eos % (Auto) Baso % (Auto) Lymph # (Auto) Robertson # (Auto) Eos # (Auto) Baso # (Auto) Abs Immat Gran (auto) Absolute Neuts (auto) Absolute Nucleated RBC Nucleated RBC % (auto) Anion Gap Estim Creat Clear Calc Estimated GFR POC Glucose 140 H Random Glucose Calcium Magnesium Total Bilirubin Direct Bilirubin AST ALT Alkaline Phosphatase Total Protein Albumin Microbiology Microbiology Results: Microbiology 04/23/25 16:04 Blood Culture - Final Blood - Venous Escherichia coli Assessment and Plan (1) Acute cholecystitis: Status: Acute Assessment and Plan: d5 for 84yo M with CAD s/p 5v CABG 2002, [place] 2003, AICD, ischemic cardiomyopathy [LVEF 20-25% Nov 2024], HTN, and DM2, on Gen Surg service for acute cholecystitis complicated by bacteremia; medicine consult for management of comorbid conditions CAD ischemic cardiomyopathy HTN - resumed statin + clopidogrel + spironolactone - continue metoprolol tartrate acute cholecystitis E coli bacteremia - /- piperacillin-tazobactam, E coli pansensitive, recommend cefuroxime 500mg bid x14d hypoK - repleted, restarted spironolactone DM2 with hypoglycemia - hold dapafliglozin, glipizide, and semaglutide; resume upon discharge - correction-dose lispro if needed VTE ppx - enoxaparin postoperatively at discretion of Surgery team Total time managing care of this patient today: 35 minutes. Quality Stroke Does the patient have a stroke diagnosis?: No VTE Prior VTE?: No VTE Risk Level:: Surgical - moderate VTE Device Contraindication: N/A - Device Ordered VTE Drug Contraindication: Treatment Not Indicated
--- NOTE | 2025-04-27 10:14 | MHC.CM.PN ---
PT WILL DC HOME TODAY WITH NO SERVICES VIA PRIVATE TRANSPORT
[2025-04-27 10:55] VITALS: BP 147/70; PULSE 73; RESP 16; TEMP 36.3; O2SAT 94
[2025-04-27] MEDS: cefuroxime axetiL 500 MG TABLET PO (11:04)
[2025-04-30 10:59] LABS: Phosphatidylethanol 16:0-18:1 NEGATIVE; Phosphatidylethanol 16:0-18:2 NEGATIVE
== END 2025-04-27 11:44 | disposition home or self-care (01) | DRG 418 ==
LOC: HO.ED 21:50 → HO.EDOVER 22:07 → HO.S3 04-24 09:04
PROVIDERS: Family Medicine; Internal Medicine; Physician Assistant Medical; Surgery; Admitting Provider Physician Assistant Surgical; Emergency Provider Emergency Medicine; PCP Internal Medicine; Visit Provider Physician Assistant Surgical
PROC: 0FT44ZZ Resection of Gallbladder, Percutaneous Endoscopic Approach (ICD-10-PCS; CPT 47562; principal; 2025-04-25 13:30)
DX: K80.00 Calculus of gallbladder with acute cholecystitis without obstruction (principal); R78.81 Bacteremia; I25.10 Atherosclerotic heart disease of native coronary artery without angina pectoris; E87.6 Hypokalemia; I10 Essential (primary) hypertension; E11.9 Type 2 diabetes mellitus without complications; I25.5 Ischemic cardiomyopathy; E11.649 Type 2 diabetes mellitus with hypoglycemia without coma; Z95.810 Presence of automatic (implantable) cardiac defibrillator; B96.20 Unspecified Escherichia coli [E. coli] as the cause of diseases classified elsewhere; Z95.1 Presence of aortocoronary bypass graft; Z79.02 Long term (current) use of antithrombotics/antiplatelets; Z79.84 Long term (current) use of oral hypoglycemic drugs; Z79.899 Other long term (current) drug therapy
CPT/HCPCS: 36415; 71045; 74177; 76705; 78226; 80048; 80053; 80076; 80321; 81001; 82248; 82947; 83605; 83690; 83735; 85025; 86140; 87040; 87077; 87086; 87147; 87186; 87205; 88304; 93005; 99285; A9537; C1726; J0131; J0696; J1171; J1836; J2003; J2543; J2704; J3010; J3475; J3480; J7120; Q9967

== ENCOUNTER → 2025-04-23 17:43 | Outpatient (BNV) | payer MEDICARE, SELFPAY | PROVIDERS: Emergency Provider Emergency Medicine; PCP Internal Medicine; Visit Provider Student in an Organized Health Care Education/Training Program | DX: R11.10 Vomiting, unspecified (principal); R10.11 Right upper quadrant pain | CPT/HCPCS: 71045; 74177; 76705 ==

== ENCOUNTER 2025-04-23 21:40 | Outpatient (BNV) | payer MEDICARE, SELFPAY | END 2025-04-24 07:00 | PROVIDERS: Admitting Provider Physician Assistant Surgical; Emergency Provider Emergency Medicine; PCP Internal Medicine; Visit Provider Radiology Diagnostic Radiology | DX: K81.0 Acute cholecystitis (principal) | CPT/HCPCS: 78226 ==

== ENCOUNTER → 2025-04-23 21:40 | Outpatient (BNV) | payer MEDICARE, SELFPAY | PROVIDERS: Admitting Provider Physician Assistant Surgical; Emergency Provider Emergency Medicine; PCP Internal Medicine; Visit Provider Internal Medicine | DX: K81.0 Acute cholecystitis (principal); R74.01 Elevation of levels of liver transaminase levels; R11.10 Vomiting, unspecified | CPT/HCPCS: 99222 ==

== ENCOUNTER → 2025-04-23 21:40 | Outpatient (BNV) | payer MEDICARE, SELFPAY | PROVIDERS: Admitting Provider Physician Assistant Surgical; Emergency Provider Emergency Medicine; PCP Internal Medicine; Visit Provider Physician Assistant Surgical | DX: K81.0 Acute cholecystitis (principal); Z90.49 Acquired absence of other specified parts of digestive tract | CPT/HCPCS: 47562; 99024; 99222 ==

== ENCOUNTER → 2025-04-23 21:40 | Outpatient (BNV) | payer MEDICARE, SELFPAY | PROVIDERS: Admitting Provider Physician Assistant Surgical; Emergency Provider Emergency Medicine; PCP Internal Medicine; Visit Provider Internal Medicine | DX: Z01.818 Encounter for other preprocedural examination (principal); I25.10 Atherosclerotic heart disease of native coronary artery without angina pectoris; Z95.1 Presence of aortocoronary bypass graft; I25.5 Ischemic cardiomyopathy; Z95.810 Presence of automatic (implantable) cardiac defibrillator | CPT/HCPCS: 99223 ==

== ENCOUNTER → 2025-04-23 21:40 | Outpatient (BNV) | payer MEDICARE, SELFPAY | PROVIDERS: Admitting Provider Physician Assistant Surgical; Emergency Provider Emergency Medicine; PCP Internal Medicine; Visit Provider Student in an Organized Health Care Education/Training Program | DX: K81.0 Acute cholecystitis (principal) | CPT/HCPCS: 99223; 99232 ==

== ENCOUNTER 2025-05-01 12:40 | Outpatient (AMB) | payer MEDICARE, SELFPAY ==
--- NOTE | 2025-05-01 12:43 | MHC.OFFVIS ---
Vital Signs 05/01/25 12:49 Height 5 ft 9 in Weight 171 lb 8 oz BMI 25.3 BP 132/70 Blood Pressure Location Lt brachial Position Sitting Pulse 65 Intake Visit Reasons: s/p cholecystectomy Intake Note: Patient is seen in office for post op assessment post laparoscopic cholecystectomy. Pt c/o: denies any concerns Blocker Automatic Required: No Accompanied by: Family/Other Allergies No Known Allergies Allergy (Verified 05/01/25 12:50) HPI HPI s/p cholecystectomy: Details: Patient reports he is doing well. Denies pain, fever, chills, chest pain, shortness of breath. Bowel function and appetite are appropriate He reports he was unable to take the dressings off at home. He has questions about driving, and he is going to [place] next week for 4 days and wanted to make sure he could fly. He also has questions about returning to golf He has no other concerns PFS Medical History Non-insulin dependent type 2 diabetes mellitus CAD (coronary artery disease) Surgical History S/P laparoscopic cholecystectomy (04/25/25) AICD present, double chamber Hx of CABG Social History Household Members: None Household Members Other:: self, daughter next door Housing: Homeless Do you presently have visiting nurse or other home services: No Patient Tobacco Use Status: Former Tobacco user service: No Review of Systems Const All systems reviewed & are unremarkable except as noted in HPI and below Physical Exam Vital Signs: Last Vital Signs Pulse 65 05/01/25 12:49 BP 132/70 05/01/25 12:49 BMI result Body Mass Index 25.3 Const General: healthy appearing and comfortable Orientation/consciousness: patient oriented x3 Resp Effort & Inspection: normal respiratory effort and able to speak in complete sentences GI Other: Incision sites dressings removed, appeared to be healing well. Small amounts of serous discharge from the inferior right lateral incision site. Steri-Strips on the epigastric incision site were left in place Inspection: No distended Palpation (GI): Soft to palpation, not firm, nontender, no guarding and not rigid Neuro General: patient oriented x3 Assessment & Plan Assessment & Plan (1) S/P laparoscopic cholecystectomy: Onset Date: 04/25/25 Code(s): Z90.49 - Acquired absence of other specified parts of digestive tract Category: Medical Plan 84-year-old male s/p laparoscopic cholecystectomy on 04/25/2025 presenting to the office for one-week follow-up. Patient is doing well, not experiencing any pain. Patient denies fever or chills, shortness of breath, chest pain. His abdominal exam is soft and benign incision site dressings were removed in the office today incisions appear to be healing well. The inferior right lateral incision site had scant amounts of serous fluid draining when the Steri-Strips was removed so I placed a Band-Aid for any further drainage. We discussed restrictions, the patient is okay to drive and fly at this time. We will continue the 15 lb weight limit until his next appointment in 3 weeks. Patient will follow-up in 3 weeks for 1 month postop visit. He can return sooner as needed for any concerns. Surgical pathology as follows ?acute and chronic cholecystitis with cholelithiasis ? Coding Level of Care Code Global (90964) Diagnoses S/P laparoscopic cholecystectomy Z90.49
[2025-05-01 12:49] VITALS: BP 132/70; PULSE 65; BMI 25.3
--- OUTSIDE RECORDS SUMMARY | 2025-05-01 14:34 | XMS_ITS | Encounter Summary ---
Author Organization [facility] [place] [address] Care Team Providers Care Computer Help Desk Specialist Name Role Phone Romie Vieyra MD Primary Care Provider [phone] Reason for Visit * Reason Onset Date Comments Abdominal Pain 04/23/2025 Vomiting 04/23/2025 Diarrhea 04/23/2025 Encounter Details Date Type Department Care Team (Late Contact Info) Description 04/23/2025 Telephone Adult Medicine [address] [phone] Romie Vieyra MD [address] [place] [phone] Abdominal Pain; Vomiting; Diarrhea Social History Tobacco Use Types Packs/Day Years Used Date Smoking Tobacco: Former Cigarettes Q uit: 11/20/1979 Smokeless Tobacco: Never Alcohol Use Standard Drinks/Week Comments Not Asked 0 (1 standard drink = 0.6 oz pur e alcohol) Sex and Gender Information Value Date Recorded Sex Assigned at Not on file Legal Sex Male 6:08 PM EST Gender Identity Not on file Sexual Orientation Not on file documented as of this encounter Progress Notes * Carol Amos RN - 04/23/2025 2:25 PM EDT Pt. States he went on a cruise 2 weeks ago and developed diarrhea he then went to [facility] and the diarrhea continued Monday to Monday , he vomited Monday and Monday and felt a little better on Monday and [place] , [place] today and had to leave because he was nauseated and vomited. He went home and has not left the bed sine, he urinated this a.m. and has not since, he sounds dry mouth while talking on phone, he denies co, sob at present time . His abd. Is soft non-tender and he has no abd. Pain . No c/o black stool. I advised him to be evaluated in the ER. And if feeling weak or lightheaded not to get in a car but to call for an ambulance . Pt. Does not want to go to ER I explained we are limited in the office and will most likely need fluids . If not urinating since this a.m. . Pt. Verbalized understanding * Elisha Bobbi - 04/23/2025 1:36 PM EDT Patient call requires triage: Symptoms patient is presenting: c/o abdominal pain, vomiting and decreased diarrhea, weakness How long has patient had these symptoms?: over 1 week For ALL patients calling to schedule any appointment (routine, sick visit, follow up, consult, etc.) in the outpatient setting please ask the following questions: Do you have fever of higher than 101, sore throat with difficulty swallowing or severe shortness ofbreath? no If YES to any of these above symptoms, send a message to triage and do not book. Red dot. If no, an audio or video visit should be booked. Have you had close contact with someone with Coronavirus in the last 14 days? no Have you traveled abroad? no Have you traveled recently to another state outside of [place], [place], [place], [place], [place], [place], [place]? no o If yes, did you quarantine for 14 days or have a negative covid test? no If yes to any of the above, patient is not to be scheduled in office until after 14 day quarantine or negative covid test. If pain or injury related was it due to an accident at work or from a motor vehicle accident? If yes, date of accident/Injury: No If yes, gather 3rd libertarian insurance information Third Libertarian Information: not applicable PCP: Romie Vieyra MD Payor: MEDICARE / Plan: MEDICARE PART A & B / Product Type: Medicare / documented in this encounter Plan of Treatment Upcoming Encounters Date Type Department Care Team (Late st Contact Info) Description 09/29/2025 11:30 AM EST Office Visit Adult Medicine [address] [phone] Romie Vieyra MD [address] [place] [phone] documented as of this encounter Visit Diagnoses Not on filedocumented in this encounter Care Teams Computer Help Desk Specialist Relationship Specialty Start Date End Date Romie Vieyra MD [address] [place] [phone] PCP - General 09/22/22 documented as of this encounter
== END 2025-05-01 13:20 | disposition home or self-care (01) ==
LOC: HO.HGS 12:40
PROVIDERS: PCP Internal Medicine
DX: Z90.49 Acquired absence of other specified parts of digestive tract (principal)
CPT/HCPCS: 99024

== ENCOUNTER → 2025-05-01 12:40 | Outpatient (BNVA) | payer MEDICARE, SELFPAY | PROVIDERS: PCP Internal Medicine | DX: Z90.49 Acquired absence of other specified parts of digestive tract (principal) | CPT/HCPCS: 99212 ==

== ENCOUNTER 2025-05-20 09:48 | Outpatient (AMB) | payer MEDICARE, SELFPAY ==
--- NOTE | 2025-05-20 09:52 | A.OFFVIS_ITS ---
Vital Signs 05/20/25 09:58 Height 5 ft 9 in Weight 168 lb BMI 24.8 BP 92/50 L Blood Pressure Location Rt brachial Position Sitting Pulse 60 Intake Visit Reasons: s/p cholecystectomy Intake Note: Patient here 4wk s/p Laparoscopic cholecystectomy, intraoperative cholangiogram. Patient c/o: no concerns. Reports incision healing well. Surgery: 04-25-2025 Health Information Managers Required: No Accompanied by: Self / Same As Patient Allergies No Known Allergies Allergy (Verified 05/20/25 09:58) HPI HPI s/p cholecystectomy: Details: Patient doing well denies pain reports incision sites are healing well, appetite and bowel function are at baseline. Has questions about when he can return to golf and activity. He has no other questions or concerns PFS Medical History Non-insulin dependent type 2 diabetes mellitus CAD (coronary artery disease) Surgical History S/P laparoscopic cholecystectomy (04/25/25) AICD present, double chamber Hx of CABG Social History Household Members: None Household Members Other:: self, daughter next door Housing: Homeless Do you presently have visiting nurse or other home services: No Patient Tobacco Use Status: Former Tobacco user service: No Review of Systems Const All systems reviewed & are unremarkable except as noted in HPI and below Physical Exam Vital Signs: Last Vital Signs Pulse 60 05/20/25 09:58 BP 92/50 L 05/20/25 09:58 BMI result Body Mass Index 24.8 Const General: comfortable and no acute distress Resp Effort & Inspection: normal respiratory effort and able to speak in complete sentences GI Other: Laparoscopic port sites healing well, nontender, no surrounding erythema, no palpable fluid collection Inspection: No distended Palpation (GI): Soft to palpation, not firm, nontender, no guarding and not rigid Assessment & Plan Assessment & Plan (1) S/P laparoscopic cholecystectomy: Onset Date: 04/25/25 Code(s): Z90.49 - Acquired absence of other specified parts of digestive tract Category: Medical Plan 84-year-old male presents to the office for one-month follow-up s/p laparoscopic cholecystectomy on 04/25/2025. Patient doing well overall. Denies any pain. Reports his diet and appetite are at baseline. Bowel function is appropriate. On exam his abdomen is soft and benign, the incision sites appear to be healing well. No concern for infection at this time. We discussed returning to activity, I instructed the patient that he can resume activity beginning next week, Monday05/26/2025. In regards to returning to golf that recommended that he resume slowly with smaller movements such as chipping and putting and slowly working his way back up to full swings. Patient agreeable this plan, states he is going on a couple vacations over the next month and states he likely will not be able to golf very much this month but will slowly resume once he is able to. Patient is a longer requiring follow-up, he can follow up as needed for any concerns in the future. Coding Level of Care Code Global (80333) Diagnoses S/P laparoscopic cholecystectomy Z90.49
[2025-05-20 09:58] VITALS: BP 92/50; PULSE 60; BMI 24.8
== END 2025-05-20 10:11 | disposition home or self-care (01) ==
LOC: HO.HGS 09:49
PROVIDERS: PCP Internal Medicine
DX: Z90.49 Acquired absence of other specified parts of digestive tract (principal)
CPT/HCPCS: 99024

== ENCOUNTER → 2025-05-20 09:48 | Outpatient (BNVA) | payer MEDICARE, SELFPAY | PROVIDERS: PCP Internal Medicine | DX: Z90.49 Acquired absence of other specified parts of digestive tract (principal) | CPT/HCPCS: 99212 ==